=== PATIENT | female | born 1940 | race Caucasian/White ===

== ENCOUNTER → 2020-06-30 09:11 | Outpatient (BNVA) | payer MEDICARE, SELFPAY | PROVIDERS: PCP Internal Medicine; Referring Provider Internal Medicine; Visit Provider Nurse Practitioner | DX: K63.89 Other specified diseases of intestine (principal); K21.9 Gastro-esophageal reflux disease without esophagitis; Z86.19 Personal history of other infectious and parasitic diseases | CPT/HCPCS: 99212 ==

== ENCOUNTER → 2020-07-22 09:36 | Outpatient (BNVA) | payer MEDICARE, SELFPAY | PROVIDERS: PCP Internal Medicine; Referring Provider Internal Medicine; Visit Provider Nurse Practitioner | DX: K21.9 Gastro-esophageal reflux disease without esophagitis (principal); K63.89 Other specified diseases of intestine; Z86.19 Personal history of other infectious and parasitic diseases; Z87.891 Personal history of nicotine dependence | CPT/HCPCS: Q3014 ==

== ENCOUNTER 2020-08-02 07:55 | Outpatient (REF) | payer MEDICARE, SELFPAY ==
[2020-08-02 10:50] LABS: Alanine Aminotransferase 17 U/L (0-31); Albumin Level 3.8 g/dL (3.5-5.0); Alkaline Phosphatase 89 U/L (39-117); Anion Gap 13 (12-20); Aspartate Amino Transferase 21 U/L (5-31); Bilirubin Total 0.9 mg/dL (0.0-1.0); Blood Urea Nitrogen 17 mg/dL (9-16); Calcium 8.1 mg/dL (8.4-10.2); Carbon Dioxide 25 mmol/L (22-29); Chloride 106 mmol/L (96-108); Cholesterol 180 mg/dL; Estimated Glomerular Filt Rate > 60; Glucose Fasting 96 mg/dL (60-99); HDL Cholesterol 51 mg/dL; LDL Cholesterol Calculated 104 mg/dl; Potassium 4.5 mmol/l (3.3-5.1); Sodium 139 mmol/L (135-145); Total Protein 6.9 g/dL (6.5-8.0); Triglycerides 129 mg/dL
[2020-08-02 11:10] LABS: Vitamin D 25-OH Total 22.1 ng/mL (>30)
[2020-08-02 11:27] LABS: Folate 14.1 ng/mL (> or = 4.0); Vitamin B12 399 pg/mL (200-900)
== END 2020-08-02 07:56 | disposition home or self-care (01) ==
LOC: HO.10HDL 07:55
PROVIDERS: Visit Provider Internal Medicine
DX: E78.00 Pure hypercholesterolemia, unspecified (principal); E53.8 Deficiency of other specified B group vitamins; E55.9 Vitamin D deficiency, unspecified
CPT/HCPCS: 80053; 80061; 82306; 82607; 82746

== ENCOUNTER 2020-08-09 09:09 | Outpatient (REF) | payer MEDICARE, SELFPAY | END 2020-08-09 09:10 | disposition home or self-care (01) | LOC: HO.LAB 09:09 | PROVIDERS: PCP Internal Medicine; Visit Provider Internal Medicine | DX: Z20.828 Contact with and (suspected) exposure to other viral communicable diseases (principal); I45.10 Unspecified right bundle-branch block; I10 Essential (primary) hypertension | CPT/HCPCS: 99212; U0003 ==

== ENCOUNTER 2020-08-20 08:42 | Outpatient (REF) | payer MEDICARE, SELFPAY ==
--- NOTE | 2020-08-20 08:46 | MM_ITS ---
EXAMINATION: MM SCREENING DIGITAL BREAST TOMOSYNTHESIS, BILATERAL CLINICAL INFORMATION: Screening. Asymptomatic. The lifetime risk of breast cancer based on the Tyrer-Cuzick Model is 2%. COMPARISON: Mammography: 01/05/2020, 08/12/2019, 08/08/2018 TECHNIQUE: Digital breast tomosynthesis is performed in both the craniocaudal and mediolateral oblique views along with computer-aided detection (CAD). Synthesized 2D images are generated from the tomosynthesis. FINDINGS: There are scattered areas of fibroglandular density (ACR BI-RADS breast composition Category b). There are no significant masses, abnormal calcifications, or other abnormalities. Parenchymal pattern is similar to prior studies. Skin contours are smooth. MM/MM tomosynthesis screening BI IMPRESSION: No mammographic evidence of malignancy. ASSESSMENT: BI-RADS 1: Negative RECOMMENDATION: Routine annual mammography screening. This patient's information was entered into a reminder system with a target due date for their next mammogram.
== END 2020-08-20 08:43 | disposition home or self-care (01) ==
LOC: HO.MAMMO 08:42
PROVIDERS: PCP Internal Medicine; Visit Provider Internal Medicine
DX: Z12.31 Encounter for screening mammogram for malignant neoplasm of breast (principal)
CPT/HCPCS: 77063; 77067

== ENCOUNTER → 2020-08-23 10:53 | Outpatient (BNVA) | payer MEDICARE, SELFPAY | PROVIDERS: PCP Internal Medicine; Visit Provider Nurse Practitioner | DX: Z13.89 Encounter for screening for other disorder (principal) | CPT/HCPCS: Q3014 ==

== ENCOUNTER 2020-09-06 10:53 | Outpatient (REF) | payer MEDICARE, SELFPAY | END 2020-09-06 10:54 | disposition home or self-care (01) | LOC: HO.LAB 10:53 | PROVIDERS: Visit Provider Internal Medicine | DX: Z20.822 Contact with and (suspected) exposure to COVID-19 (principal) | CPT/HCPCS: 36415; C9803; U0003 ==

== ENCOUNTER → 2020-10-04 08:38 | Outpatient (BNVA) | payer MEDICARE, SELFPAY | PROVIDERS: PCP Internal Medicine; Visit Provider Nurse Practitioner | DX: Z13.89 Encounter for screening for other disorder (principal) | CPT/HCPCS: Q3014 ==

== ENCOUNTER → 2020-12-09 09:00 | Outpatient (BNVA) | payer MEDICARE, SELFPAY | PROVIDERS: PCP Internal Medicine; Visit Provider Internal Medicine Cardiovascular Disease | DX: I45.10 Unspecified right bundle-branch block (principal); I10 Essential (primary) hypertension; R60.0 Localized edema; R06.00 Dyspnea, unspecified | CPT/HCPCS: 93005; 99212 ==

== ENCOUNTER → 2020-12-28 09:42 | Outpatient (REF) | payer MEDICARE, SELFPAY | LOC: HO.CARD 09:42 | PROVIDERS: Visit Provider Internal Medicine Cardiovascular Disease | DX: Z13.89 Encounter for screening for other disorder (principal) ==

== ENCOUNTER → 2021-01-06 07:34 | Outpatient (REF) | payer MEDICARE, SELFPAY ==
--- NOTE | ~2021-01-06 | NM_ITS ---
EXERCISE MYOCARDIAL PERFUSION STUDY INDICATION: Shortness of breath, weight gain, assess for coronary disease and ischemia TECHNIQUE: The patient was brought in for an exercise perfusion study on 01/06/2021. Patient performed exercise as per Alex protocol and was injected 30 mCi of sestamibi once target heart rate was achieved. Images were obtained using the SPECT gamma camera interlaced with the gating device. Images were obtained in supine position. Resting perfusion study was performed on 01/17/2021. Patient was administered 30 mCi of sestamibi intravenously at rest. Images were then obtained in supine position. Total DLP 103mGy-cm. Images were processed with the software and compared side to side in short axis, horizontal long axis and vertical long axis views. FINDINGS: Raw images were reviewed. The stress perfusion study showed diminished tracer uptake along the mid to distal anteroseptal wall and basal inferior wall. With CT attenuation correction, there is improvement in both areas and hence could be from soft tissue attenuation artifact with diaphragmatic artifact. The gated study shows normal LV systolic function with calculated LVEF of 66%. LV cavity is normal in size. The gated study shows diminished wall thickening and contractility in the anteroseptal wall. Resting study shows no significant perfusion abnormality. Gating at rest reveals normal wall motion with ejection fraction at 61%. The findings are consistent with reversible mid to distal anteroseptal and basal inferior defects; moderate intensity; there is improvement with CT attenuation correction; reduced contractility during gating; could be either artifactual or ischemia. NM/NM cardiolite stress test IMPRESSION: 1. Myocardial perfusion imaging study shows reversible mid to distal anteroseptal and basal inferior defect but with improvement on CT attenuation correction. However, there is also reduced regional thickening during gating; hence could be artifactual or from ischemia. 2. Gated LVEF is 66% during stress and 61% during rest. 3. Transient ischemic dilatation not present. EKG component of the test reported separately.
--- NOTE | 2021-01-06 07:38 | CA_ITS ---
Acquisition Time: 2021-01-06 08:19:40 Total Exercise Time: 00:07:08 Test Indications: Dyspnea Medications: ASA ATORVASTATIN OMEPRAZOLE CREON Protocol: ALEX Max HR: 116 BPM 84% of Pred: 138 BPM Max BP: 164/070 mmHG Max Work Load: 5.7 METS Eercise wstress test using Modified Alex protocol, total of 7 min 8 sec. METS 5.70, TAPHR up to 84 %. Tolerated well, denies any anginal sx. EKG without any arrhythmias Mild ST depressions in lead 2, Nuclear images to follow. Normotensive response to exercise. Test reviewed with Shaina Vyas. Referred By: Ismael Leija Overread By: Pao Travis NP
== END ==
LOC: HO.CARD 07:34
PROVIDERS: Visit Provider Internal Medicine Cardiovascular Disease
DX: R06.00 Dyspnea, unspecified (principal)
CPT/HCPCS: 78452; 93016; 93017; 93018; A9500

== ENCOUNTER → 2021-01-20 10:55 | Outpatient (BNVA) | payer MEDICARE, SELFPAY | PROVIDERS: PCP Internal Medicine; Referring Provider Internal Medicine; Visit Provider Internal Medicine Cardiovascular Disease | DX: R94.39 Abnormal result of other cardiovascular function study (principal); R06.00 Dyspnea, unspecified; I45.10 Unspecified right bundle-branch block; Z79.82 Long term (current) use of aspirin; Z79.899 Other long term (current) drug therapy; Z87.891 Personal history of nicotine dependence | CPT/HCPCS: 99212 ==

== ENCOUNTER 2021-02-10 07:35 | Outpatient (REF) | payer MEDICARE, SELFPAY ==
[2021-02-10 08:28] LABS: Hematocrit 40.2 % (37-47); Hemoglobin 13.1 g/dl (12.0-16.0); Mean Corpuscular HGB Conc 32.6 g/dl (31.0-35.0); Mean Platelet Volume 9.7 fL (9.4-12.3); Platelet Count 211 X10*3/uL (160-400); Red Blood Count 4.23 X10*6/uL (4.20-5.50); White Blood Count 6.6 X10*3/uL (4.8-10.8)
[2021-02-10 08:36] LABS: Prothrombin Time 11.5 SEC (10.8-13.0)
[2021-02-10 08:55] LABS: Alanine Aminotransferase 9 U/L (0-31); Alkaline Phosphatase 95 U/L (39-117); Anion Gap 9 (12-20); Aspartate Amino Transferase 17 U/L (5-31); Bilirubin Total 0.9 mg/dL (0.0-1.0); Blood Urea Nitrogen 15 mg/dL (9-16); Calcium 9.1 mg/dL (8.4-10.2); Carbon Dioxide 29 mmol/L (22-29); Chloride 103 mmol/L (96-108); Cholesterol 159 mg/dL; Estimated Glomerular Filt Rate 58; Glucose Fasting 95 mg/dL (60-99); HDL Cholesterol 56 mg/dL; LDL Cholesterol Calculated 87 mg/dl; Potassium 4.2 mmol/L (3.3-5.1); Sodium 137 mmol/L (135-145); Triglycerides 81 mg/dL
[2021-02-10 09:32] LABS: Folate 14.8 ng/mL (> or = 4.0); Vitamin B12 320 pg/mL (200-900)
[2021-02-14 15:07] LABS: Vitamin D 25-OH, D2 <4 ng/mL; Vitamin D 25-OH, D3 44 ng/mL; Vitamin D 25-OH, Total 44 ng/mL (30-100)
== END 2021-02-10 07:36 | disposition home or self-care (01) ==
LOC: HO.LAB 07:35
PROVIDERS: Absent Provider Internal Medicine; PCP Internal Medicine; Visit Provider Internal Medicine Cardiovascular Disease
DX: R94.39 Abnormal result of other cardiovascular function study (principal); E78.00 Pure hypercholesterolemia, unspecified; E78.5 Hyperlipidemia, unspecified; E53.8 Deficiency of other specified B group vitamins; E55.9 Vitamin D deficiency, unspecified
CPT/HCPCS: 36415; 80048; 80053; 80061; 82306; 82607; 82746; 85027; 85610

== ENCOUNTER → 2021-03-10 13:30 | Outpatient (BNVA) | payer MEDICARE, SELFPAY | PROVIDERS: PCP Internal Medicine; Referring Provider Internal Medicine; Visit Provider Nurse Practitioner Family | DX: R06.00 Dyspnea, unspecified (principal); I10 Essential (primary) hypertension; E78.5 Hyperlipidemia, unspecified; E78.00 Pure hypercholesterolemia, unspecified; I45.10 Unspecified right bundle-branch block; R94.39 Abnormal result of other cardiovascular function study; E66.9 Obesity, unspecified; Z87.891 Personal history of nicotine dependence; Z98.890 Other specified postprocedural states | CPT/HCPCS: 99212 ==

== ENCOUNTER 2021-03-15 07:50 | Outpatient (REF) | payer MEDICARE, SELFPAY ==
--- NOTE | 2021-03-15 16:51 | PFT_ITS ---
FLOWS: FEV1 126% of predicted at 2.33 L. FVC 121% of predicted at 3.02 L. FEV1 to FVC ratio of 0.77. No bronchodilator response except in small to medium airways. LUNG VOLUMES: Total lung capacity 98% of predicted at 4.95 L. Residual volume 78% of predicted at 1.93 L. Slow vital capacity 116% of predicted at 3.03 L. Expiratory reserve volume 65% of predicted at 0.31 L. Diffusion capacity is mildly decreased. IMPRESSION: No obstructive or restrictive ventilatory defect. No bronchodilator response except in small to medium airways. Decreased diffusion capacity suggests emphysema. ALLERGIES: PHYSICAL EXAMINATION: MD DIMPLE Mobley/MODL / [id number]
== END 2021-03-15 07:51 | disposition home or self-care (01) ==
LOC: HO.RESP 07:50
PROVIDERS: PCP Internal Medicine; Visit Provider Nurse Practitioner Family
DX: R06.00 Dyspnea, unspecified (principal)
CPT/HCPCS: 94060; 94727; 94729

== ENCOUNTER → 2021-03-24 12:32 | Outpatient (BNVA) | payer MEDICARE, SELFPAY | PROVIDERS: PCP Internal Medicine; Visit Provider Nurse Practitioner Family | DX: R06.00 Dyspnea, unspecified (principal); R94.39 Abnormal result of other cardiovascular function study; Z98.890 Other specified postprocedural states; Z87.891 Personal history of nicotine dependence; Z79.899 Other long term (current) drug therapy | CPT/HCPCS: Q3014 ==

== ENCOUNTER → 2021-04-19 13:51 | Outpatient (BNVA) | payer MEDICARE, SELFPAY | PROVIDERS: PCP Internal Medicine; Visit Provider Nurse Practitioner | CPT/HCPCS: Q3014 ==

== ENCOUNTER → 2021-06-03 15:34 | Outpatient (BNVA) | payer MEDICARE, SELFPAY | PROVIDERS: Visit Provider Nurse Practitioner | CPT/HCPCS: Q3014 ==

== ENCOUNTER 2021-09-06 08:30 | Outpatient (REF) | payer MEDICARE, SELFPAY ==
--- NOTE | ~2021-09-06 | MM_ITS ---
EXAMINATION: MM SCREENING DIGITAL BREAST TOMOSYNTHESIS, BILATERAL CLINICAL INFORMATION: Screening. Asymptomatic. The lifetime risk of breast cancer based on the Tyrer-Cuzick Model is 1%. COMPARISON: Mammography: 08/20/2020, 01/05/2020, 08/12/2019, 08/08/2018 TECHNIQUE: Digital breast tomosynthesis is performed in both the craniocaudal and mediolateral oblique views along with computer-aided detection (CAD). Synthesized 2D images are generated from the tomosynthesis. FINDINGS: There are scattered areas of fibroglandular density (ACR BI-RADS breast composition Category b). There are no significant masses, abnormal calcifications, or other abnormalities. MM/MM tomosynthesis screening BI IMPRESSION: No mammographic evidence of malignancy. ASSESSMENT: BI-RADS 1: Negative RECOMMENDATION: Routine annual mammography screening. This patient's information was entered into a reminder system with a target due date for their next mammogram.
== END 2021-09-06 08:31 | disposition home or self-care (01) ==
LOC: HO.MAMMO 08:30
PROVIDERS: PCP Internal Medicine; Visit Provider Internal Medicine
DX: Z12.31 Encounter for screening mammogram for malignant neoplasm of breast (principal)
CPT/HCPCS: 77063; 77067

== ENCOUNTER → 2021-12-29 07:08 | Outpatient (BNVA) | payer MEDICARE, SELFPAY | PROVIDERS: PCP Internal Medicine; Referring Provider Internal Medicine; Visit Provider Nurse Practitioner | DX: K21.9 Gastro-esophageal reflux disease without esophagitis (principal); R14.0 Abdominal distension (gaseous) | CPT/HCPCS: 99212 ==

== ENCOUNTER 2022-01-12 05:45 | Emergency (ER) | payer MEDICARE, SELFPAY ==
[2022-01-12 05:52] VITALS: BP 183/87; PULSE 64; RESP 18; TEMP 36.8; O2SAT 97; BMI 40.3
[2022-01-12 06:04] LABS: Hematocrit 39.5 % (37.0-47.0); Hemoglobin 13.2 g/dl (12.0-16.0); Mean Corpuscular HGB Conc 33.4 g/dl (31.0-35.0); Mean Corpuscular Hemoglobin 30.8 pg (27.0-33.0); Mean Corpuscular Volume 92.1 fL (80.0-98.0); Platelet Count 219 X10*3/uL (160-400); Red Blood Count 4.29 X10*6/uL (4.20-5.50); Red Cell Distribution Width 12.3 % (11.0-16.0); White Blood Count 7.4 X10*3/uL (4.8-10.8)
[2022-01-12 06:23] LABS: Alanine Aminotransferase 13 U/L (0-31); Albumin Level 3.8 g/dL (3.5-5.0); Alkaline Phosphatase 76 U/L (39-117); Anion Gap 13 (12-20); Aspartate Amino Transferase 20 U/L (5-31); Blood Urea Nitrogen 9 mg/dL (9-16); Calcium 9.1 mg/dL (8.4-10.2); Carbon Dioxide 24 mmol/L (22-29); Chloride 105 mmol/L (96-108); Creatinine Clr Calc Pharmacy 54.6; Estimated Glomerular Filt Rate 58; Glucose Random 113 mg/dL (60-115); Potassium 4.1 mmol/L (3.3-5.1); Sodium 138 mmol/L (135-145)
[2022-01-12 06:54] LABS: Appearance Urine CLEAR; Color Urine YELLOW; Glucose Urine UA NEG (NEG); Leukocyte Esterase Urine 1+ (NEG); Nitrite Urine NEG (NEG); Specific Gravity - Urine 1.015 (1.005-1.025); UACC Culture Trigger YES; Urine Blood TRACE (NEG); Urine Ketones NEG (NEG); Urine Protein NEG (NEG-TRACE)
[2022-01-12 07:07] LABS: Bacteria Urine TRACE /LPF; RBC Urine 0-2 /HPF (0); Renal Epithelial Cells Urine TRACE /LPF; Squamous Epithelial Cell Urine TRACE /LPF; UACC CULT YES
--- NOTE | 2022-01-12 07:12 | ED_ITS ---
HPI - General Adult General Chief complaint: Abdominal Pain Stated complaint: R side pain Time Seen by Provider: 01/12/22 07:12 Source: patient Mode of arrival: ambulatory Limitations: no limitations History of Present Illness HPI narrative: 81 years old female came in for presentation of right upper quadrant pain. Pain started about 7 days ago described as constant, moderate 5/10, feels like deep dull aching pain, respiration/food has no effect on the pain, no aggravating factor, no relieving factor. No fever, no chills, never had similar pain in the past. Patient was seen and evaluated at walk-in urgent care yesterday was told a pulled muscle. No history of abdominal surgery. No history of diabetes or being immunocompromised. Patient had a history of shingle infection in the past. Related Data Previous Rx's Medication Instructions Recorded blood pressure test kit-large #1 ea 08/09/20 fluticasone propionate 50 1 spray INTRANASAL DAILY #16 cap 11/01/20 mcg/actuation nasal spray,suspension aspirin 81 mg tablet,delayed 81 mg PO DAILY #90 tab 03/12/21 release atorvastatin 10 mg tablet 10 mg PO DAILY #90 tab 03/15/21 cholecalciferol (vitamin D3) 50 50 mcg PO DAILY #90 cap 06/26/21 mcg (2,000 unit) capsule furosemide 20 mg tablet (Lasix) 20 mg PO Q OTHER DAY #30 tab 08/07/21 omeprazole 20 mg capsule,delayed 20 mg PO BID 90 Days #180 cap 12/29/21 release ibuprofen 400 mg tablet 400 mg PO Q8H PRN #30 tab 01/12/22 prednisone 20 mg tablet 20 mg PO BID #10 tab 01/12/22 Allergies Allergy/AdvReac Type Severity Reaction Status Date / Time seasonal Allergy Intermediate Itchy Eyes Uncoded 12/29/21 07:16 Review of Systems 2 Review of Systems: All other systems are reviewed and are negative Constitutional: Reports as per HPI and Reports no additional constitutional complaints Eyes: Reports as per HPI and Reports no additional eye complaints Reports system reviewed and no additional complaints, except as documented Cardiovascular: Reports as per HPI and Reports no additional cardiovascular complaints Respiratory: Reports as per HPI and Reports no additional respiratory complaints Gastrointestinal: Reports as per HPI and Reports no additional gastrointestinal complaints Genitourinary: Reports no additional female genitourinary complaints Musculoskeletal: Reports no additional musculoskeletal complaints Skin/Breast: Reports system reviewed and no additional complaints, except as docu Psychiatric: Reports no additional psychiatric complaints Endocrine: Reports no additional endocrine complaints Hematologic/Lymphatic: Reports no additional hematologic/lymphatic complaints Allergic/Immunologic: Reports no additional allergic/immunologic complaints Reports system reviewed and no additional complaints, except as documented and Reports Abnormal speech present [facility], [facility] Past Medical History Medical History B12 deficiency Candidal intertrigo Constipation by delayed colonic transit History of smoking Hypovitaminosis D Obesity Pure hypercholesterolemia Voice hoarseness Surgical History Hx of cataract surgery Hx of colonoscopy Hx of tonsillectomy Hx of tubal ligation Family History Family History Father Lung cancer Mother Cardiovascular disease Sister Lymph node cancer Brother Colon cancer Brother Pacemaker Maternal Aunt Breast cancer Social History Social History Household Members: None Housing: Apartment Alcohol intake: current Alcohol intake frequency: holidays/special occasions only Alcohol type: other Patient Tobacco Use Status: Former Tobacco user Tobacco use type: Cigarette e-Cigarette/Vaping Use: Never Used Second Hand Smoke Exposure: No Advance Directives: No Advance Directives Information Provided: Yes service: No Current occupational status: retired Physical Exam ED Vital Signs: Vital Signs - 24 hr 01/12/22 05:52 Temperature 98.2 F Pulse Rate 64 Respiratory Rate 18 Blood Pressure 183/87 H Pulse Oximetry 97 BMI result Body Mass Index 40.3 Vital signs have been reviewed as appeared to be correct. Blood pressure elevated. Heart rate normal. Respiration rate normal. Temperature normal. Oxygen saturation normal. Appearance: Alert. Oriented X3. No acute distress. Head: Normal external exam. Normocephalic. Atraumatic. No Gagnon signs noted. No raccoon eyes noted Eyes: PERRLA. EOMI. Conjunctiva and sclera normal. Eyelids normal. ENT: TM's Normal. Pharynx normal. Uvula midline. Moist mucous membranes. No trismus noted. No drooling noted. No muffled voice noted. Neck: Normal inspection. Neck supple. FROM. No adenopathy. Thyroid Normal. No meningeal signs. No neck mass noted. CVS: Normal heart rate and rhythm. Heart sound normal. No murmurs noted. Pulses normal throughout. Respiratory: No respiratory distress. Painless inspiration. Breath sounds normal. No wheezes/rales/rhonchi noted. Chest nontender. No accessory muscle usage noted or decreased air movement noted. Abdomen: Soft and nontender. Bowel sounds normal in all 4 quadrants. No distention noted. No organomegaly noted. No visible injury noted. Back: No CVA tenderness. Full range of motion noted. Skin: Crusted maculopapular eruption extending from midline right upper quadrant area anteriorly creeping under the breast toward the back do not cross the midline posteriorly, no vesicular lesion. Extremities: No lower extremity edema. Extremities exhibit normal range of motion. Extremities nontender. Neuro: Oriented X 3. Cranial nerve exam: II-XII are grossly intact No motor deficit. No sensory deficit. Reflexes normal. Course Course Course Narrative: Assessment and plan. 81-year-old female right side body ache secondary to varicella-zoster virus infection symptoms started greater than 72 hours ago patient likely will not terry efit from antiviral medication but may benefit from short course of prednisone to prevent post herpetic neuralgia and NSAIDs to control pain for now, patient also was instructed to prevent spreading the disease. Medical Decision Making Lab Data Lab results reviewed: Yes I reviewed the patient's lab results. Result diagrams: 01/12/22 05:57 01/12/22 05:57 Labs: Lab Results 01/12/22 01/12/22 01/12/22 Range/Units 05:57 05:57 06:47 WBC 7.4 (4.8-10.8) X10*3/uL RBC 4.29 (4.20-5.50) X10*6/uL Hgb 13.2 (12.0-16.0) g/dl Hct 39.5 (37.0-47.0) % MCV 92.1 (80.0-98.0) fL MCH 30.8 (27.0-33.0) pg MCHC 33.4 (31.0-35.0) g/dl RDW 12.3 (11.0-16.0) % Plt Count 219 (160-400) X10*3/uL MPV 9.0 L (9.4-12.3) fL Absolute Nucleated RBC 0.000 (0.0-0.012) X10*3/uL Nucleated RBC % (auto) 0.0 (0.0-0.2) /100WBC Sodium 138 (135-145) mmol/L Potassium 4.1 (3.3-5.1) mmol/L Chloride 105 (96-108) mmol/L Carbon Dioxide 24 (22-29) mmol/L Anion Gap 13 (12-20) BUN 9 (9-16) mg/dL Creatinine 0.93 (0.5-1.4) mg/dL Estim Creat Clear Calc 54.6 Estimated GFR 58 Random Glucose 113 (60-115) mg/dL Calcium 9.1 (8.4-10.2) mg/dL Total Bilirubin 1.0 (0.0-1.0) mg/dL AST 20 (5-31) U/L ALT 13 (0-31) U/L Alkaline Phosphatase 76 (39-117) U/L Total Protein 7.0 (6.5-8.0) g/dL Albumin 3.8 (3.5-5.0) g/dL Urine Color YELLOW Urine Appearance CLEAR Urine pH 7.0 (5.0-8.0) Ur Specific [place] 1.015 (1.005-1.025) Urine Protein NEG (NEG-TRACE) MG/DL Urine Glucose (UA) NEG (NEG) MG/DL Urine Ketones NEG (NEG) MG/DL Urine Blood TRACE (NEG) Urine Nitrite NEG (NEG) Ur Leukocyte Esterase 1+ H (NEG) Urine RBC 0-2 (0) /HPF Urine WBC 1-4 (0-4) /HPF Ur Squamous Epith Cells TRACE /LPF Ur Renal Epithelial Cell TRACE /LPF Urine Bacteria TRACE /LPF Discharge Plan Discharge Clinical Impression: Herpes zoster dermatitis Patient Disposition: Home, Self-Care Instructions: Shingles (ED) Prescriptions: New prednisone 20 mg tablet 20 mg PO BID Qty: 10 0RF ibuprofen 400 mg tablet 400 mg PO Q8H PRN (Reason: pain) Qty: 30 0RF No Action fluticasone propionate 50 mcg/actuation spray,suspension 1 spray intranasal DAILY Qty: 16 6RF aspirin 81 mg tablet,delayed release (DR/EC) 81 mg PO DAILY Qty: 90 3RF atorvastatin 10 mg tablet 10 mg PO DAILY Qty: 90 3RF cholecalciferol (vitamin D3) 50 mcg (2,000 unit) capsule 50 mcg PO DAILY Qty: 90 3RF furosemide [Lasix] 20 mg tablet 20 mg PO Q OTHER DAY Qty: 30 3RF (DME) blood pressure test kit-large Kit See Rx Instructions .ROUTE .MEDSUPPLY Qty: 1 0RF Rx Instructions: As directed omeprazole 20 mg capsule,delayed release(DR/EC) 20 mg PO BID 90 Days Qty: 180 1RF Referrals: Niyah Vale MD [Primary Care Provider] -
[2022-01-12 07:45] VITALS: BP 174/71; PULSE 59; RESP 16; O2SAT 93
[2022-01-12 08:22] VITALS: BP 176/73
== END 2022-01-12 08:25 | disposition home or self-care (01) ==
PROVIDERS: Emergency Provider Emergency Medicine; PCP Internal Medicine
DX: B02.8 Zoster with other complications (principal)
CPT/HCPCS: 36415; 80053; 81001; 85027; 87086; 99283

== ENCOUNTER → 2022-04-10 09:47 | Outpatient (BNVA) | payer MEDICARE, SELFPAY | PROVIDERS: PCP Internal Medicine; Visit Provider Internal Medicine | DX: B02.29 Other postherpetic nervous system involvement (principal) | CPT/HCPCS: 99202 ==

== ENCOUNTER → 2022-05-15 10:35 | Outpatient (BNVA) | payer MEDICARE, SELFPAY | PROVIDERS: PCP Internal Medicine; Visit Provider Internal Medicine | DX: B02.29 Other postherpetic nervous system involvement (principal) | CPT/HCPCS: 99212; J7336 ==

== ENCOUNTER 2022-06-29 08:36 | Outpatient (REF) | payer MEDICARE, SELFPAY ==
[2022-06-29 11:12] LABS: Alanine Aminotransferase 15 U/L (0-31); Albumin Level 4.1 g/dL (3.5-5.0); Alkaline Phosphatase 77 U/L (39-117); Anion Gap 15 (12-20); Aspartate Amino Transferase 19 U/L (5-31); Bilirubin Total 0.9 mg/dL (0.0-1.0); Blood Urea Nitrogen 22 mg/dL (9-16); Calcium 9.2 mg/dL (8.4-10.2); Carbon Dioxide 27 mmol/L (22-29); Chloride 104 mmol/L (96-108); Cholesterol 170 mg/dL; Estimated Glomerular Filt Rate 52; Glucose Fasting 87 mg/dL (60-99); HDL Cholesterol 48 mg/dL; LDL Cholesterol Calculated 93 mg/dl; Potassium 4.5 mmol/L (3.3-5.1); Sodium 141 mmol/L (135-145); Total Protein 7.2 g/dL (6.5-8.0); Triglycerides 149 mg/dL
[2022-06-29 11:33] LABS: Vitamin D 25-OH Total 42.3 ng/mL (>30)
== END 2022-06-29 08:37 | disposition home or self-care (01) ==
LOC: HO.10HDL 08:36
PROVIDERS: Visit Provider Internal Medicine
DX: B02.29 Other postherpetic nervous system involvement (principal); B37.9 Candidiasis, unspecified; E78.5 Hyperlipidemia, unspecified; E55.9 Vitamin D deficiency, unspecified; I10 Essential (primary) hypertension
CPT/HCPCS: 36415; 80053; 80061; 82306; 99212

== ENCOUNTER → 2022-07-25 07:56 | Outpatient (BNVA) | payer MEDICARE, SELFPAY | PROVIDERS: PCP Internal Medicine; Referring Provider Internal Medicine; Visit Provider Nurse Practitioner | DX: B02.29 Other postherpetic nervous system involvement (principal); B37.9 Candidiasis, unspecified; K21.9 Gastro-esophageal reflux disease without esophagitis | CPT/HCPCS: 99212 ==

== ENCOUNTER → 2022-08-17 08:12 | Outpatient (BNVA) | payer MEDICARE, SELFPAY | PROVIDERS: PCP Internal Medicine; Visit Provider Nurse Practitioner | DX: B02.29 Other postherpetic nervous system involvement (principal); B37.9 Candidiasis, unspecified; K21.9 Gastro-esophageal reflux disease without esophagitis; R14.0 Abdominal distension (gaseous); Z79.899 Other long term (current) drug therapy | CPT/HCPCS: 99212 ==

== ENCOUNTER 2022-09-11 07:53 | Outpatient (REF) | payer MEDICARE, SELFPAY ==
--- NOTE | ~2022-09-11 | MM_ITS ---
EXAMINATION: MM SCREENING DIGITAL BREAST TOMOSYNTHESIS, BILATERAL CLINICAL INFORMATION: Screening. Asymptomatic. The lifetime risk of breast cancer based on the Tyrer-Cuzick Model is 1%. COMPARISON: Mammography: 09/06/2021, 03/20/2020, 01/05/2020, 08/12/2019 TECHNIQUE: Digital breast tomosynthesis is performed in both the craniocaudal and mediolateral oblique views along with computer-aided detection (CAD). Synthesized 2D images are generated from the tomosynthesis. FINDINGS: There are scattered areas of fibroglandular density (ACR BI-RADS breast composition Category b). There are no significant masses, abnormal calcifications, or other abnormalities. Parenchymal pattern is similar to prior studies. There is no developing density or architectural abnormality. The axilla and skin contours are unremarkable. No significant changes. MM/MM tomosynthesis screening BI IMPRESSION: No mammographic evidence of malignancy. ASSESSMENT: BI-RADS 1: Negative RECOMMENDATION: Routine annual mammography screening. This patient's information was entered into a reminder system with a target due date for their next mammogram.
== END 2022-09-11 07:54 | disposition home or self-care (01) ==
LOC: HO.MAMMO 07:53
PROVIDERS: PCP Internal Medicine; Visit Provider Internal Medicine
DX: Z12.31 Encounter for screening mammogram for malignant neoplasm of breast (principal)
CPT/HCPCS: 77063; 77067

== ENCOUNTER → 2022-10-10 10:12 | Outpatient (BNVA) | payer MEDICARE, SELFPAY | PROVIDERS: PCP Internal Medicine; Visit Provider Nurse Practitioner | DX: K21.9 Gastro-esophageal reflux disease without esophagitis (principal); B37.9 Candidiasis, unspecified | CPT/HCPCS: 99212 ==

== ENCOUNTER 2023-02-26 09:08 | Outpatient (REF) | payer MEDICARE, SELFPAY ==
--- NOTE | ~2023-02-26 | XR_ITS ---
EXAMINATION: XR HAND, RIGHT XR KNEE, LEFT CLINICAL INFORMATION: Pain within the knuckles of the right hand, left knee pain. TECHNIQUE: 2 views of the left knee and 3 views of the right hand. FINDINGS: LEFT KNEE: Joint effusion. Mild medial joint space narrowing. Minimal posterior patellar and medial marginal osteophytes. Mild quadriceps enthesopathy. RIGHT HAND: Radiopaque marker placed by technologist to indicate area of concern indicated by the patient adjacent to the 5th metacarpal shaft. Bones are diffusely demineralized. Moderate degenerative changes 1st carpometacarpal joint with joint space narrowing and hypertrophic change. Moderate degenerative changes with joint space narrowing and hypertrophic change in scattered interphalangeal joints, most notable in the 2nd and 3rd DIP joints and in the 1st IP joint. XR/XR knee LT 2V IMPRESSION: 1. Left knee joint effusion. Mild degenerative changes. 2. Moderate degenerative changes right hand. No displaced fracture. Recommend followup imaging in 10-14 days if fracture is suspected.
--- NOTE | ~2023-02-26 | XR_ITS ---
EXAMINATION: XR HAND, RIGHT XR KNEE, LEFT CLINICAL INFORMATION: Pain within the knuckles of the right hand, left knee pain. TECHNIQUE: 2 views of the left knee and 3 views of the right hand. FINDINGS: LEFT KNEE: Joint effusion. Mild medial joint space narrowing. Minimal posterior patellar and medial marginal osteophytes. Mild quadriceps enthesopathy. RIGHT HAND: Radiopaque marker placed by technologist to indicate area of concern indicated by the patient adjacent to the 5th metacarpal shaft. Bones are diffusely demineralized. Moderate degenerative changes 1st carpometacarpal joint with joint space narrowing and hypertrophic change. Moderate degenerative changes with joint space narrowing and hypertrophic change in scattered interphalangeal joints, most notable in the 2nd and 3rd DIP joints and in the 1st IP joint. XR/XR hand RT 2V IMPRESSION: 1. Left knee joint effusion. Mild degenerative changes. 2. Moderate degenerative changes right hand. No displaced fracture. Recommend followup imaging in 10-14 days if fracture is suspected.
== END 2023-02-26 09:09 | disposition home or self-care (01) ==
LOC: HO.XRAY 09:08
PROVIDERS: PCP Internal Medicine; Visit Provider Internal Medicine
DX: M25.562 Pain in left knee (principal); M79.641 Pain in right hand
CPT/HCPCS: 73120; 73560

== ENCOUNTER 2023-03-05 07:35 | Outpatient (REF) | payer MEDICARE, SELFPAY | END 2023-03-05 07:36 | disposition home or self-care (01) | LOC: HO.10HDL 07:35 | PROVIDERS: Visit Provider Internal Medicine | DX: E53.8 Deficiency of other specified B group vitamins (principal); E55.9 Vitamin D deficiency, unspecified; I10 Essential (primary) hypertension; E78.5 Hyperlipidemia, unspecified | CPT/HCPCS: 36415; 80053; 80061; 82306; 82607; 82746 ==

== ENCOUNTER 2023-04-10 09:48 | Outpatient (AMB) | payer MEDICARE, SELFPAY ==
--- NOTE | 2023-04-10 09:53 | MHC.OFFVIS ---
Intake Vital Signs 04/10/23 09:54 Height 5 ft 2 in Weight 238 lb 15.697 oz BMI 43.7 BP 140/66 H Blood Pressure Location Rt brachial Position Sitting Pulse 49 L Intake Visit Reasons: 6 month follow up Intake Note: Cece presents in office as a est.patient for a 6 months follow up. PT CC: Patient reports she has been doing very good. Denies other GI concerns today. Occupational Therapist'S Assistant Required: No Accompanied by: Self / Same As Patient Allergies No Known Drug Allergies Adverse Reaction (Unknown, Verified 04/10/23 09:56) Unknown seasonal Allergy (Intermediate, Uncoded 02/20/23 11:04) Itchy Eyes HPI 6 month follow up HPI Details Assessment & Plan (1) GERD (gastroesophageal reflux disease): ?Code(s): K21.9 - Gastro-esophageal reflux disease without esophagitis ?Qualifiers: ?Esophagitis presence:?esophagitis presence not specified? Qualified Code(s):?K21.9 - Gastro-esophageal reflux disease without esophagitis ?Plan: Not taking venlafaxine, problem with jacqueline as insurance has qty limit on 300mg tablets - likely needs to increase the strength of the tabs. She has rashes in all warm, moist areas - now armpits itchy. Will re rx nystatin cream. Doing well on o2o bid. ROV 6 mos. (2) Gabriela albicans infection: ?Code(s): B37.9 - Candidiasis, unspecified ? ? ? Medications: New nystatin 1 appl? topical TI D 30 grams 3RF B37.9 - Candidiasi s, unspecified ? TODAY'S VISIT She continues to do well on the omeprazole bid. The nystatin really helped with the rash and she does not have it now but would like to have it on hand. She continues to struggle with post herpetic neuralgia and the gabapentin is not helping much. The gabapentin also has quite sedating so she skipping her daytime doses. She finds that pain limits her activity and this is causing wt gain. I recommend she revisit this with her PCP and perhaps they can consider other medications in the clinical pathway to address this such as carbamazepine, lamictal or SSNI tx. She has failed amitriptyline, lidocaine patches, and most other topical therapies given by Pain Management. ROV 6 mos. PFS Medical History B12 deficiency Candidal intertrigo Constipation by delayed colonic transit History of Clostridioides difficile colitis History of smoking Hypovitaminosis D Obesity Post herpetic neuralgia Pure hypercholesterolemia Small intestinal bacterial overgrowth Voice hoarseness Surgical History Hx of cataract surgery Hx of colonoscopy Hx of tonsillectomy Hx of tubal ligation Family History Father Lung cancer Mother Cardiovascular disease Sister Lymph node cancer Brother Colon cancer Brother Pacemaker Maternal Aunt Breast cancer Social History Household Members: None Housing: Apartment Alcohol intake: current Alcohol intake frequency: holidays/special occasions only Alcohol type: other Patient Tobacco Use Status: Former Tobacco user Tobacco use type: Cigarette e-Cigarette/Vaping Use: Never Used Second Hand Smoke Exposure: No service: No Current occupational status: retired Cognitive needs: No Hearing needs: No Vision needs: Yes Review of Systems Const Denies fatigue, Denies fever(s), Denies night sweats, Denies poor appetite, Reports weight gain and Denies weight loss ENT Reports Normal hearing present, Denies dental pain, Denies dysphagia, Denies hearing loss, Denies mouth pain, Denies odynophagia, Denies throat swelling, Denies tongue swelling and Reports other (Dentition adequate) Card Reports no additional complaints Resp Reports no additional complaints GI Reports abdominal pain (Post herpetic neuralgia not GI origin), Denies melena, Denies bloating, Denies hematochezia, Denies constipation, Denies GI cramping, Denies dysphagia, Denies excessive flatus, Denies early satiety, Reports heartburn, Denies diarrhea, Denies nausea, Denies odynophagia, Denies vomiting and Denies hematemesis Musc Reports arthralgias (Left knee pain) Skin/Breast Denies pruritus, Denies lesions, Denies rash and Denies jaundice Neuro Reports Normal hearing present and Denies Abnormal speech present Endo Denies fatigue Aller/Immun Denies throat swelling and Denies tongue swelling Physical Exam Vital Signs: Last Vital Signs Pulse 49 L 04/10/23 09:54 BP 140/66 H 04/10/23 09:54 BMI result Body Mass Index 43.7 Const General: cooperative, no acute distress, well developed and well groomed Nutritional Appearance: well nourished and obese Orientation/consciousness: oriented to person, oriented to place and oriented to time Limitations: No language barrier HEENT Head: Yes normocephalic and Yes atraumatic Eyes General: appearance normal, both eyes and all related structures Pupils: Equal, round and reactive pupils present Neck Neck: Yes normal visual inspection and Yes no lymphadenopathy Thyroid: Thyroid normal Resp Effort & Inspection: normal respiratory effort and able to speak in complete sentences Auscultation: clear to auscultation bilaterally Cardio Rate: regular rate Rhythm: regular rhythm Heart sounds: Normal, physiologic split S2 sound present Peripheral pulses: radial pulses present and posterior tibial pulses present GI Inspection: No distended, Yes Abdominal panniculus present and Yes obesity Palpation (GI): Soft to palpation, nontender, no guarding, not rigid and No hepatosplenomegaly present Percussion: Yes normal to percussion Auscultation: normal bowel sounds Rectal Exam - Female: deferred Skin General skin exam: no rashes or lesions noted, turgor normal, skin not dry, no jaundice, No spider nevi and no striae Rashes: no rashes Nails: normal Neuro General: oriented to person, oriented to place and oriented to time Cranial nerves: Yes Equal, round and reactive pupils present and Yes Normal hearing present Speech: No Abnormal speech present Extrem General: Yes normal to inspection, No clubbing, No cyanosis and No edema Psych Appearance: grossly normal and well kempt Mental Status: mental status grossly normal Speech and movement: Normal speech and movement present Affect: normal affect Attitude: cooperative Thought process: Normal thought process present and not confabulating Thought content: Normal thought content present Insight: Fair insight present (Psych) Judgement: Fair judgement present (Psych) Assessment & Plan Assessment & Plan (1) GERD (gastroesophageal reflux disease): Code(s): K21.9 - Gastro-esophageal reflux disease without esophagitis Qualifiers: Esophagitis presence: esophagitis presence not specified Qualified Code(s): K21.9 - Gastro-esophageal reflux disease without esophagitis Plan: She continues to do well on the omeprazole bid. The nystatin really helped with the rash and she does not have it now but would like to have it on hand. She continues to struggle with post herpetic neuralgia and the gabapentin is not helping much. The gabapentin also has quite sedating so she skipping her daytime doses. She finds that pain limits her activity and this is causing wt gain. I recommend she revisit this with her PCP and perhaps they can consider other medications in the clinical pathway to address this such as carbamazepine, lamictal or SSNI tx. She has failed amitriptyline, lidocaine patches, and most other topical therapies given by Pain Management. ROV 6 mos. (2) Gabriela albicans infection: Code(s): B37.9 - Candidiasis, unspecified (3) Constipation by delayed colonic transit: Code(s): K59.01 - Slow transit constipation Plan: She has not needed any intervention for this recently. Medications: New nystatin 1 appl topical QID 30 grams 3RF B37.9 - Candidiasis, unspecified Refilled omeprazole 20 mg PO BID 90 days 180 caps 1RF K21.9 - Gastro-esophageal reflux disease without esophagitis Coding Level of Care Code Est Pt Level 3 (51558) Diagnoses GERD (gastroesophageal reflux disease) K21.9 Esophagitis presence: esophagitis presence not specified Gabriela albicans infection B37.9 Constipation by delayed colonic transit K59.01
[2023-04-10 09:54] VITALS: BP 140/66; PULSE 49; BMI 43.7
== END 2023-04-10 10:16 | disposition home or self-care (01) ==
PROVIDERS: Visit Provider Nurse Practitioner
DX: K21.9 Gastro-esophageal reflux disease without esophagitis (principal); B37.9 Candidiasis, unspecified; K59.01 Slow transit constipation
CPT/HCPCS: 99213

== ENCOUNTER → 2023-04-10 09:48 | Outpatient (BNVA) | payer MEDICARE, SELFPAY | PROVIDERS: Visit Provider Nurse Practitioner | DX: K21.9 Gastro-esophageal reflux disease without esophagitis (principal); K59.01 Slow transit constipation; B37.9 Candidiasis, unspecified | CPT/HCPCS: 99212 ==

== ENCOUNTER 2023-05-29 08:26 | Outpatient (AMB) | payer MEDICARE, SELFPAY ==
[2023-05-29 08:28] VITALS: BP 132/80; PULSE 58; O2SAT 98; BMI 43.5
--- NOTE | 2023-05-29 08:28 | A.OFFPC_ITS ---
Vital Signs 05/29/23 08:28 Height 5 ft 2 in Weight 238 lb BMI 43.5 BP 132/80 Blood Pressure Location Lt brachial Position Sitting Pulse 58 Pulse Source Pulse Oximeter Pulse Oximetry (%) 98 Oxygen Delivery Method Room Air Intake Visit Reasons: bp Floor Refinisher Required: No Accompanied by: Self / Same As Patient Allergies No Known Drug Allergies Adverse Reaction (Unknown, Verified 05/29/23 08:28) Unknown seasonal Allergy (Intermediate, Uncoded 05/29/23 08:28) Itchy Eyes Tobacco use date assessed: 05/29/23 Fall risk assessment: No Falls in past year Last assessed Fall Risk: 05/29/23 Dental Screening Dental Screen Date: 05/29/23 Did you have a dental visit in the last 12 months?: Yes Did you have a dental problem in the last 6 months where you did not have access to dental care?: No Was dental information given to patient?: Patient has dentist HPI HPI Comments History of Present Illness Details 83-year-old female past medical history significant for hypercholesteremia, GERD, hypertension and post herpetic neuralgia. Patient of last seen in March patient presents today for follow-up visit. Review of the notes patient seen by Gastroenterology recommended to continue on omeprazole bid for GERD. Bloodpressure optimal in office today. Patient reports continued post herpetic neuralgia pain, patient reports takes her gabepentin primarily at beditme with improvement of pain and able to sleep well. Offered prescription for capsacin cream to use during the day if needed. Patient reports uses a hemp cream or take ibuprofen with improvement of pain. FORMERLY [facility], [facility]1983 Medical History B12 deficiency Candidal intertrigo Constipation by delayed colonic transit History of Clostridioides difficile colitis History of smoking Hypovitaminosis D Obesity Post herpetic neuralgia Pure hypercholesterolemia Small intestinal bacterial overgrowth Voice hoarseness Surgical History Hx of cataract surgery Hx of tubal ligation Hx of tonsillectomy Hx of colonoscopy Family History Father Lung cancer Mother Cardiovascular disease Sister Lymph node cancer Brother Colon cancer Brother Pacemaker Maternal Aunt Breast cancer Social History Household Members: None Housing: Apartment Alcohol intake: current Alcohol intake frequency: holidays/special occasions only Alcohol type: other Patient Tobacco Use Status: Former Tobacco user Tobacco use type: Cigarette e-Cigarette/Vaping Use: Never Used Second Hand Smoke Exposure: No service: No Current occupational status: retired Cognitive needs: No Hearing needs: No Vision needs: Yes Questionnaire PHQ-9 Over the last 2 weeks, how often have you been bothered by any of the following problems? 1. Little interest or pleasure in doing things: not at all 2. Feeling down, depressed, or hopeless: not at all 3. Trouble falling or staying asleep, or sleeping too much: not at all 4. Feeling tired or having little energy: not at all 5. Poor appetite or overeating: not at all 6. Feeling bad about yourself - or that you are a failure or have let yourself or your family down: not at all 7. Trouble concentrating on things, such as reading the newspaper or watching television: not at all 8. Moving or speaking so slowly that other people could have noticed. Or the opposite - being so fidgety or restless that you have been moving around a lot more than usual: not at all 9. Thoughts that you would be better off or of hurting yourself in some way: not at all Total score: 0 Depression Screening Interpretation: Negative 56604 - PHQ-9 Billing: Yes Source: Developed by Drs. Jose Fairchild, Ruth Ochoa, Lexx Ponce and colleagues, with an educational kristie from [employer] Thrive Questionnaire Date Thrive assessed: 05/29/23 I am a: Patient What is your living situation today?: I have a steady place to live Within the past 12 months, did the food you bought not last and you didn't have the money to get more?: Never true Within the past 12 months, did you worry whether your food would run out before you got money to buy more?: Never true Do you have trouble paying for medicines?: No Do you have trouble getting transportation to medical appointments?: No Do you have trouble paying your heating and electricity bill?: No Do you have trouble taking care of your child, family member or friend?: No Do you have trouble with day-to-day activities such as bathing, preparing meals, shopping, managing finances, etc.?: No Are you currently unemployed and looking for a job?: No Are you interested in more education?: No Please select the resources that you would like help with: None Currently or been in a relationship where the following occur: no concerns repor gunner AUDIT C Alcohol Use Questionnaire (AUDIT-C) 1. How often do you have a drink containing alcohol?: Never Total Score: 0 BILLY-7 AMB Questionnaire BILLY-7 Date BILLY - 7 assessed: 05/29/23 Feeling nervous, anxious, or on edge: 0 = Not at all Not being able to stop or control worryin = Not at all Worrying too much about different things: 0 = Not at all Trouble relaxin = Not at all Being so restless that it is hard to sit still: 0 = Not at all Becoming easily annoyed or irritable: 0 = Not at all Feeling afraid as if something awful might happen: 0 = Not at all Total BILLY-7 score (0-4 normal; 5-9 mild; 10-14 moderate; 15-21 severe): 0 Source: Developed by Drs. Jose Fairchild, Ruth Ochoa, Lexx Ponce and colleagues, with an educational kristie from [employer] Review of Systems Const Denies chills, Denies fatigue, Denies fever(s) and Denies poor appetite Eyes Denies no additional complaints ENT Reports Normal hearing present Card Denies chest pain, Denies syncope, Denies rapid heart rate and Denies dyspnea Resp Denies cough and Denies dyspnea GI Denies change in stool character, Denies constipation, Denies diarrhea, Denies nausea and Denies vomiting Denies urinary frequency, Denies dysuria and Denies urinary urgency Neuro Reports Normal hearing present, Denies confusion and Denies syncope Psych Denies confusion Endo Denies fatigue Physical exam (Primary Care) Vital Signs: Last Vital Signs Pulse 58 05/29/23 08:28 BP 132/80 05/29/23 08:28 Pulse Ox 98 05/29/23 08:28 Oxygen Delivery Method Room Air 05/29/23 08:28 BMI result Body Mass Index 43.5 Tobacco/Smoking Status: Tobacco use Status Tobacco use date assessed 05/29/23 05/29/23 08:33 Patient Tobacco Use Status Former Tobacco user 05/29/23 08:33 Tobacco use type Cigarette 05/29/23 08:33 e-Cigarette/Vaping Use Never Used 05/29/23 08:33 PHQ-9: PHQ-9 Score PHQ-9: Total score 0 05/29/23 08:33 Depression Screening Interpretation: Negative Thrive Assessment: Date of Thrive Assessment Date Thrive assessed 05/29/23 05/29/23 08:33 Currently or been in a relationship where the following occur: no concerns reported Const General: No confusion Orientation/consciousness: No confusion HENMT Head: Yes normocephalic and Yes atraumatic Eyes Conjunctivae: conjunctivae normal Chest Chest palpation & inspection: normal inspection of the chest Resp Effort & Inspection: normal respiratory effort Auscultation: clear to auscultation bilaterally, no crackles, no rhonchi and no wheezes Cardio Rate: regular rate Rhythm: regular rhythm Heart sounds: S1 normal heart sound present and S2 normal heart sound present GI Inspection: Yes normal to inspection Neuro General: No confusion Cranial nerves: Yes Normal hearing present Extrem General: No edema Assessment and Plan Assessment & Plan (1) Essential hypertension: Code(s): I10 - Essential (primary) hypertension Plan: Continue on losartan 25mg daily. B/p goal < 140/90 Follow low salt diet and exercise. (2) GERD (gastroesophageal reflux disease): Code(s): K21.9 - Gastro-esophageal reflux disease without esophagitis Qualifiers: Esophagitis presence: esophagitis presence not specified Qualified Code(s): K21.9 - Gastro-esophageal reflux disease without esophagitis Plan: Continue on omeprazole BID Continue to follow with GI. Avoid the foods that cause that, usually spicy foods, tomato products, juices, coffee, soda and foods that you're sensitive to.? After eating do not lie down, allow 3-4 hours before lying down. And keep the head of the bed above 30 degrees to avoid the acid from going up. (3) Pure hypercholesterolemia: Code(s): E78.00 - Pure hypercholesterolemia, unspecified Plan: Continue on statin. Fasting lipid panel ordered. (4) Post herpetic neuralgia: Code(s): B02.29 - Other postherpetic nervous system involvement Plan: Continue on gabapentin Declined script for capsacin cream, patient reports uses hemp cream or takes ibuprofen as needed during the day with some relief. Plan Follow up in 3 months. Orders: Orders Comprehensive [place]. Panel Fast Today E78.00 - Pure hypercholesterolemia, unspecified Lipid Panel Today E78.00 - Pure hypercholesterolemia, unspecified Coding Level of Care Code Est Pt Level 4 (45386) Diagnoses Essential hypertension I10 Gastroesophageal reflux disease, unspecified whether esophagitis present K21.9 Esophagitis presence: esophagitis presence not specified Pure hypercholesterolemia E78.00 Post herpetic neuralgia B02.29
== END 2023-05-29 08:52 | disposition home or self-care (01) ==
PROVIDERS: PCP Internal Medicine; Visit Provider Nurse Practitioner Family
DX: I10 Essential (primary) hypertension (principal); K21.9 Gastro-esophageal reflux disease without esophagitis; E78.00 Pure hypercholesterolemia, unspecified; B02.29 Other postherpetic nervous system involvement
CPT/HCPCS: 99214

== ENCOUNTER 2023-08-08 09:51 | Outpatient (AMB) | payer MEDICARE, SELFPAY ==
--- NOTE | 2023-08-08 09:52 | A.OFFVIS_ITS ---
Intake Vital Signs 3 08/08/23 10:00 Height 5 ft 2 in Weight 238 lb 1.588 oz BMI 43.5 BP 182/77 H Blood Pressure Location Rt brachial Position Sitting Pulse 69 Intake Visit Reasons: 6 month fu Intake Note: Cece presents in the office as a 6 month follow up. 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 The nystatin really helped with the rash and she does not have it now but would like to have it on hand. She continues to struggle with post herpetic neuralgia and the gabapentin is not helping much. The gabapentin also has quite sedating so she skipping her daytime doses. She finds that pain limits her activity and this is causing wt gain. I recommend she revisit this with her PCP and perhaps they can consider other medications in the clinical pathway to address this such as carbamazepine, lamictal or SSNI tx. She has failed amitriptyline, lidocaine patches, and most other topical therapies given by Pain Management. ROV 6 mos. (2) Gabriela albicans infection: Code(s): B37.9 - Candidiasis, unspecified (3) Constipation by delayed colonic leung sit: Code(s): K59.01 - Slow transit constipation Plan: She has not needed any intervention for this recently. Medications: New nystatin 1 appl topical QI D 30 grams 3RF B37.9 - Candidiasi s, unspecified Refilled omeprazole 20 mg PO BID 90 d ays 180 caps 1RF K21.9 - Gastro-eso phageal reflux dis ease without esoph agitis Laboratory Tests 03/05/23 07:38 Estimated GFR 50 Total Bilirubin 1.0 AST 19 ALT 12 Alkaline Phosphata se 74 TODAY'S VISIT She continues to struggle with her post herpetic neuralgia on her flank. Her GERD remains well controlled on omeprazole twice a day. She is having more trouble with her stooling. She is having incomplete evacuation and then some mild rectal leakage this is very irritating to try to a keep clear. It sounds like she really needs a mild stimulant laxative so will try her on senna and titrate to affect her side effect. Her brother is not doing well the [facility] when she tries to visit him frequently apparently his cardiac function is down to an ejection fraction of 10%. A review of her history and covers the fact that she has not had a colonoscopy since 2005! This was with Dr. Ruelas the time it uncovered tubular adenoma. She was educated-because she did not know this-that she should have been having colonoscopies every 5 years since given her family history in this finding. She is agreeable to a colonoscopy given the fact that her general health is quite good. There are no prior problems with anesthesia or sedation. She had cardiac catheterization for shortness of breath in the past but was normal along with her ejection fraction and there are no diagnosed respiratory problems. There are no defects disease problems. Her brother of colorectal cancer and low range last colonoscopy was in 2005 when she had 1 tubular adenoma removed with Dr. Ruelas. Return office visit in 6 weeks to evaluate the reaction to the senna. [facility] Medical History Post herpetic neuralgia History of smoking B12 deficiency Candidal intertrigo Constipation by delayed colonic transit Obesity Hypovitaminosis D Voice hoarseness Pure hypercholesterolemia Small intestinal bacterial overgrowth History of Clostridioides difficile colitis Surgical History Hx of cataract surgery Hx of tubal ligation Hx of tonsillectomy Hx of colonoscopy Family History Father Lung cancer Mother Cardiovascular disease Sister Lymph node cancer Brother Colon cancer Brother Pacemaker Maternal Aunt Breast cancer Social History Household Members: None Housing: Apartment Alcohol intake: current Alcohol intake frequency: holidays/special occasions only Alcohol type: other Patient Tobacco Use Status: Former Tobacco user Tobacco use type: Cigarette e-Cigarette/Vaping Use: Never Used Second Hand Smoke Exposure: No service: No Current occupational status: retired Cognitive needs: No Hearing needs: No Vision needs: Yes Review of Systems Const Denies fatigue, Denies fever(s), Denies night sweats, Denies poor appetite and Denies weight loss ENT Reports Normal hearing present, Denies dental pain, Denies dysphagia, Denies hearing loss, Denies mouth pain, Denies odynophagia, Denies throat swelling, Denies tongue swelling and Reports other (Dentition adequate) Card Reports no additional complaints Resp Reports no additional complaints GI Denies abdominal pain, Denies melena, Denies bloating, Denies hematochezia, Reports constipation, Denies GI cramping, Denies dysphagia, Denies excessive flatus, Denies early satiety, Reports heartburn, Denies diarrhea, Denies nausea, Denies odynophagia, Denies vomiting and Denies hematemesis Reports flank pain (Herpetic neuralgia) Skin/Breast Denies pruritus, Denies lesions, Denies rash, Reports skin pain and Denies jaundice Neuro Reports Normal hearing present and Denies Abnormal speech present Endo Denies fatigue Aller/Immun Denies throat swelling and Denies tongue swelling Physical Exam Vital Signs: Last Vital Signs Pulse 69 08/08/23 10:00 BP 182/77 H 08/08/23 10:00 BMI result Body Mass Index 43.5 Const General: cooperative, no acute distress, well developed and well groomed Nutritional Appearance: well nourished and obese Orientation/consciousness: oriented to person, oriented to place and oriented to time Limitations: No language barrier HEENT Head: Yes normocephalic and Yes atraumatic Eyes General: appearance normal, both eyes and all related structures Pupils: Equal, round and reactive pupils present Neck Neck: Yes normal visual inspection and Yes no lymphadenopathy Thyroid: Thyroid normal Resp Effort & Inspection: normal respiratory effort and able to speak in complete sentences Auscultation: clear to auscultation bilaterally Cardio Rate: regular rate Rhythm: regular rhythm Heart sounds: Normal, physiologic split S2 sound present Peripheral pulses: radial pulses present and posterior tibial pulses present GI Inspection: No distended, Yes Abdominal panniculus present and Yes obesity Palpation (GI): Soft to palpation, nontender, no guarding, not rigid and No hepatosplenomegaly present Percussion: Yes normal to percussion Auscultation: normal bowel sounds Rectal Exam - Female: deferred Abdomen image: 2 1. surgical scar Skin General skin exam: no rashes or lesions noted, turgor normal, skin not dry, no jaundice, No spider nevi and no striae Rashes: no rashes Nails: normal Neuro General: oriented to person, oriented to place and oriented to time Cranial nerves: Yes Equal, round and reactive pupils present and Yes Normal hearing present Speech: No Abnormal speech present Extrem General: Yes normal to inspection, No clubbing, No cyanosis and Yes edema (bilateral non pitting) Psych Appearance: grossly normal and well kempt Mental Status: mental status grossly normal Speech and movement: Normal speech and movement present Affect: normal affect Attitude: cooperative Thought process: Normal thought process present and not confabulating Thought content: Normal thought content present Insight: Fair insight present (Psych) Judgement: Fair judgement present (Psych) Results Reviewed Results Reviewed: Laboratory Tests 03/05/23 07:38 Estimated GFR 50 Total Bilirubin 1.0 AST 19 ALT 12 Alkaline Phosphatase 74 Assessment & Plan Assessment & Plan (1) GERD (gastroesophageal reflux disease): Code(s): K21.9 - Gastro-esophageal reflux disease without esophagitis Qualifiers: Esophagitis presence: esophagitis presence not specified Qualified Code(s): K21.9 - Gastro-esophageal reflux disease without esophagitis (2) Constipation by delayed colonic transit: Code(s): K59.01 - Slow transit constipation (3) Tubular adenoma of colon: Code(s): D12.6 - Benign neoplasm of colon, unspecified (4) Family history of colon cancer: Comment: brother Code(s): Z80.0 - Family history of malignant neoplasm of digestive organs Plan She continues to struggle with her post herpetic neuralgia on her flank. Her GERD remains well controlled on omeprazole twice a day. She is having more trouble with her stooling. She is having incomplete evacuation and then some mild rectal leakage this is very irritating to try to a keep clear. It sounds like she really needs a mild stimulant laxative so will try her on senna and titrate to affect her side effect. Her brother is not doing well the [facility] when she tries to visit him frequently apparently his cardiac function is down to an ejection fraction of 10%. A review of her history and covers the fact that she has not had a colonoscopy since 2005! This was with Dr. Ruelas the time it uncovered tubular adenoma. She was educated-because she did not know this-that she should have been having colonoscopies every 5 years since given her family history in this finding. She is agreeable to a colonoscopy given the fact that her general health is quite good. There are no prior problems with anesthesia or sedation. She had cardiac catheterization for shortness of breath in the past but was normal along with her ejection fraction and there are no diagnosed respiratory problems. There are no defects disease problems. Her brother of colorectal cancer and low range last colonoscopy was in 2005 when she had 1 tubular adenoma removed with Dr. Ruelas. Return office visit in 6 weeks to evaluate the reaction to the senna. Orders: Orders 2 Colonoscopy - GI Use Only Today D12.6 - Benign neoplasm of colon, unspecified, Z80.0 - Family history of malignant neoplasm of digestive organs Medications: New 2 sennosides (Senna Laxative) 17.2 mg (2 x 8.6 mg) PO BEDTIME 60 tabs 6RF K59.01 - Slow transit constipation sodium,potassium,mag sulfates 17.5-3.13-1.6 gram (Suprep Bowel Prep Kit) 480 mL orally; 354 mL 0RF D12.6 - Benign neoplasm of colon, unspecified Refilled 2 omeprazole 20 mg PO BID 90 days 180 caps 1RF K21.9 - Gastro-esophageal reflux disease without esophagitis Coding Level of Care Code Est Pt Level 4 (13427) Diagnoses Gastroesophageal reflux disease, unspecified whether esophagitis present K21.9 Esophagitis presence: esophagitis presence not specified Constipation by delayed colonic transit K59.01 Tubular adenoma of colon D12.6 Family history of colon cancer Z80.0
[2023-08-08 10:00] VITALS: BP 182/77; PULSE 69; BMI 43.5
== END 2023-08-08 11:07 | disposition home or self-care (01) ==
PROVIDERS: PCP Internal Medicine; Visit Provider Nurse Practitioner
DX: K21.9 Gastro-esophageal reflux disease without esophagitis (principal); K59.01 Slow transit constipation; D12.6 Benign neoplasm of colon, unspecified; Z80.0 Family history of malignant neoplasm of digestive organs
CPT/HCPCS: 99214

== ENCOUNTER → 2023-08-08 09:51 | Outpatient (BNVA) | payer MEDICARE, SELFPAY | PROVIDERS: PCP Internal Medicine; Visit Provider Nurse Practitioner | DX: K21.9 Gastro-esophageal reflux disease without esophagitis (principal); K59.01 Slow transit constipation; D12.6 Benign neoplasm of colon, unspecified; Z80.0 Family history of malignant neoplasm of digestive organs | CPT/HCPCS: 99212 ==

== ENCOUNTER 2023-09-17 07:39 | Outpatient (REF) | payer MEDICARE, SELFPAY | END 2023-09-17 07:40 | disposition home or self-care (01) | LOC: HO.MAMMO 07:39 | PROVIDERS: PCP Internal Medicine; Visit Provider Internal Medicine | DX: Z12.31 Encounter for screening mammogram for malignant neoplasm of breast (principal) | CPT/HCPCS: 77063; 77067 ==

== ENCOUNTER → 2023-09-17 08:00 | Outpatient (BNV) | payer MEDICARE, SELFPAY | PROVIDERS: PCP Internal Medicine; Visit Provider Radiology Diagnostic Radiology | DX: Z12.31 Encounter for screening mammogram for malignant neoplasm of breast (principal) | CPT/HCPCS: 77063; 77067 ==

== ENCOUNTER 2023-09-18 08:23 | Outpatient (AMB) | payer MEDICARE, SELFPAY ==
[2023-09-18 08:36] VITALS: BP 157/91; PULSE 55; BMI 44.3
--- NOTE | 2023-09-18 08:36 | A.OFFVIS_ITS ---
Intake Vital Signs 09/18/23 08:36 Height 5 ft 2 in Weight 242 lb 4.355 oz BMI 44.3 BP 157/91 H Blood Pressure Location Rt brachial Position Sitting Pulse 55 Intake Visit Reasons: 6 week follow up Intake Note: Patient presents to in office visit today in follow up [facility]IC. CC: Patient reports having a BM every day but they're not as good as she would like. Denies other GI symptoms or concerns today. Allergies No Known Drug Allergies Adverse Reaction (Unknown, Verified 09/18/23 08:40) Unknown seasonal Allergy (Intermediate, Uncoded 08/08/23 10:00) Itchy Eyes HPI 6 week follow up HPI Details Assessment & Plan (1) GERD (gastroesophageal reflux diseas e): Code(s): K21.9 - Gastro-esophageal reflux disease without esophagitis Qualifiers: Esophagitis presence: esophagitis presence not specified Qualified Code(s): K21.9 - Gastro-esophageal reflux disease without esophagitis (2) Constipation by delayed colonic leung sit: Code(s): K59.01 - Slow transit constipation (3) Tubular adenoma of colon: Code(s): D12.6 - Benign neoplasm of colon, unspecified (4) Family history of colon cancer: Comment: brother Code(s): Z80.0 - Family history of malignant neoplasm of digestive organs Plan She continues to struggle with her post herpetic neuralgia on her flank. Her GERD remains well controlled on omeprazole twice a day. She is having more trouble with her stooling. She is having incomplete evacuation and then some mild rectal leakage this is very irritating to try to a keep clear. It sounds like she really needs a mild stimulant laxative so will try her on senna and titrate to affect her side effect. Her brother is not doing well the [facility] when she tries to visit him frequently apparently his cardiac function is down to an ejection fraction of 10%. A review of her history and covers the fact that she has not had a colonoscopy since 2005! This was with Dr. Ruelas the time it uncovered tubular adenoma. She was educated-because she did not know this-that she should have been having colonoscopies every 5 years since given her family history in this finding. She is agreeable to a colonoscopy given the fact that her general health is quite good. There are no prior problems with anesthesia or sedation. She had cardiac catheterization for shortness of breath in the past but was normal along with her ejection fraction and there are no diagnosed respiratory problems. There are no defects disease problems. Her brother of colorectal cancer and low range last colonoscopy was in 2005 when she had 1 tubular adenoma removed with Dr. Ruelas. Return office visit in 6 weeks to evaluate the reaction to the senna. Orders: Orders Colonoscopy - GI U se Only Today D12.6 - Benign ezio plasm of colon, un specified, Z80.0 - Family history of malignant neoplas m of digestive org ans Medications: New sennosides (Senna Laxative) 17.2 mg (2 x 8.6 m g) PO BEDTIME 60 t abs 6RF K59.01 - Slow leung sit constipation sodium,potassium,m ag sulfates 17.5-3 .13-1.6 gram (Supr ep Bowel Prep Kit) 480 mL orally; 3 54 mL 0RF D12.6 - Benign ezio plasm of colon, un specified Refilled omeprazole 20 mg PO BID 90 d ays 180 caps 1RF K21.9 - Gastro-eso phageal reflux dis ease without esoph agitis COLONOSCOPY SCHEDULED FOR 01/08/2024 BIOPSY TODAY'S VISIT She continues on her omeprazole bid with good control of her GERD and the senna has helped with moving her bowels. She was having a lot of trouble with rectal leakage. At time she is satisfied with her GI regimen. Return office visit in 6 months and after the colonoscopy. [facility] Medical History Post herpetic neuralgia History of smoking B12 deficiency Candidal intertrigo Constipation by delayed colonic transit Obesity Hypovitaminosis D Voice hoarseness Pure hypercholesterolemia Small intestinal bacterial overgrowth History of Clostridioides difficile colitis Surgical History Hx of cataract surgery Hx of tubal ligation Hx of tonsillectomy Hx of colonoscopy Family History Father Lung cancer Mother Cardiovascular disease Sister Lymph node cancer Brother Colon cancer Brother Pacemaker Maternal Aunt Breast cancer Social History Household Members: None Housing: Apartment Alcohol intake: current Alcohol intake frequency: holidays/special occasions only Alcohol type: other Patient Tobacco Use Status: Former Tobacco user Tobacco use type: Cigarette e-Cigarette/Vaping Use: Never Used Second Hand Smoke Exposure: No service: No Current occupational status: retired Cognitive needs: No Hearing needs: No Vision needs: Yes Review of Systems Const Denies fatigue, Denies fever(s), Denies night sweats, Denies poor appetite, Reports weight gain and Denies weight loss ENT Reports Normal hearing present, Denies dental pain, Denies dysphagia, Denies hearing loss, Denies mouth pain, Denies odynophagia, Denies throat swelling, Denies tongue swelling and Reports other (Dentition adequate) Card Reports no additional complaints Resp Reports no additional complaints GI Denies abdominal pain, Denies melena, Denies bloating, Denies hematochezia, Reports constipation, Denies GI cramping, Denies dysphagia, Denies excessive flatus, Denies early satiety, Reports heartburn, Denies diarrhea, Denies nausea, Denies odynophagia, Denies vomiting and Denies hematemesis Skin/Breast Denies pruritus, Denies lesions, Denies rash, Reports skin pain and Denies jaundice Neuro Reports Normal hearing present and Denies Abnormal speech present Endo Denies fatigue Aller/Immun Denies throat swelling and Denies tongue swelling Physical Exam Vital Signs: Last Vital Signs Pulse 55 09/18/23 08:36 BP 157/91 H 09/18/23 08:36 BMI result Body Mass Index 44.3 Const General: cooperative, no acute distress, well developed and well groomed Nutritional Appearance: well nourished and obese Orientation/consciousness: oriented to person, oriented to place and oriented to time Limitations: No language barrier HEENT Head: Yes normocephalic and Yes atraumatic Eyes General: appearance normal, both eyes and all related structures Pupils: Equal, round and reactive pupils present Neck Neck: Yes normal visual inspection and Yes no lymphadenopathy Thyroid: Thyroid normal Resp Effort & Inspection: normal respiratory effort and able to speak in complete sentences Auscultation: clear to auscultation bilaterally Cardio Rate: regular rate Rhythm: regular rhythm Heart sounds: Normal, physiologic split S2 sound present Peripheral pulses: radial pulses present and posterior tibial pulses present GI Inspection: No distended, Yes Abdominal panniculus present and Yes obesity Palpation (GI): Soft to palpation, nontender, no guarding, not rigid and No hepatosplenomegaly present Percussion: Yes normal to percussion Auscultation: normal bowel sounds Rectal Exam - Female: deferred Skin General skin exam: no rashes or lesions noted, turgor normal, skin not dry, no jaundice, No spider nevi and no striae Rashes: no rashes Nails: normal Neuro General: oriented to person, oriented to place and oriented to time Cranial nerves: Yes Equal, round and reactive pupils present and Yes Normal hearing present Speech: No Abnormal speech present Extrem General: Yes normal to inspection, No clubbing, No cyanosis and No edema Psych Appearance: grossly normal and well kempt Mental Status: mental status grossly normal Speech and movement: Normal speech and movement present Affect: normal affect Attitude: cooperative Thought process: Normal thought process present and not confabulating Thought content: Normal thought content present Insight: Fair insight present (Psych) Judgement: Fair judgement present (Psych) Assessment & Plan Assessment & Plan (1) GERD (gastroesophageal reflux disease): Code(s): K21.9 - Gastro-esophageal reflux disease without esophagitis Qualifiers: Esophagitis presence: esophagitis presence not specified Qualified Code(s): K21.9 - Gastro-esophageal reflux disease without esophagitis (2) Constipation by delayed colonic transit: Code(s): K59.01 - Slow transit constipation (3) Abdominal bloating: Code(s): R14.0 - Abdominal distension (gaseous) (4) Tubular adenoma of colon: Code(s): D12.6 - Benign neoplasm of colon, unspecified Plan COLONOSCOPY SCHEDULED FOR 01/08/2024 BIOPSY TODAY'S VISIT She continues on her omeprazole bid with good control of her GERD and the senna has helped with moving her bowels. She was having a lot of trouble with rectal leakage. At time she is satisfied with her GI regimen. Return office visit in 6 months and after the colonoscopy. Coding Level of Care Code Est Pt Level 3 (01115) Diagnoses Gastroesophageal reflux disease, unspecified whether esophagitis present K21.9 Esophagitis presence: esophagitis presence not specified Constipation by delayed colonic transit K59.01 Abdominal bloating R14.0 Tubular adenoma of colon D12.6
== END 2023-09-18 09:03 | disposition home or self-care (01) ==
PROVIDERS: PCP Internal Medicine; Visit Provider Nurse Practitioner
DX: K21.9 Gastro-esophageal reflux disease without esophagitis (principal); K59.01 Slow transit constipation; R14.0 Abdominal distension (gaseous); D12.6 Benign neoplasm of colon, unspecified
CPT/HCPCS: 99213

== ENCOUNTER → 2023-09-18 08:23 | Outpatient (BNVA) | payer MEDICARE, SELFPAY | PROVIDERS: PCP Internal Medicine; Visit Provider Nurse Practitioner | DX: K21.9 Gastro-esophageal reflux disease without esophagitis (principal); K59.01 Slow transit constipation; R14.0 Abdominal distension (gaseous); Z79.899 Other long term (current) drug therapy | CPT/HCPCS: 99212 ==

== ENCOUNTER 2023-09-27 08:21 | Outpatient (AMB) | payer MEDICARE, SELFPAY ==
--- NOTE | 2023-09-27 08:26 | A.OFFVIS_ITS ---
Intake Vital Signs 09/27/23 08:27 09/27/23 10:16 Height 5 ft 2 in Weight 240 lb BMI 43.9 BP 170/88 H 165/80 H Blood Pressure Location Rt brachial Lt brachial Position Sitting Sitting Intake Visit Reasons: AWV Intake Note: Patient here for an annual wellness visit Preventative Maintenance Technician Required: No Accompanied by: Self / Same As Patient Allergies No Known Drug Allergies Adverse Reaction (Unknown, Verified 09/27/23 08:43) Unknown seasonal Allergy (Intermediate, Uncoded 09/27/23 08:43) Itchy Eyes Medication List - Last Reconciled 09/27/23 by Niyah Mercado MD aspirin 81 mg PO DAILY atorvastatin 10 mg PO DAILY blood pressure test kit-large As directed cholecalciferol (vitamin D3) 50 mcg PO DAILY 90 days furosemide (Lasix) 40 mg (2 x 20 mg) PO DAILY 90 days gabapentin 600 mg PO .every 6 hours 90 days losartan 25 mg PO DAILY 90 days omeprazole 20 mg PO BID 90 days sennosides (Senna Laxative) 17.2 mg (2 x 8.6 mg) PO BEDTIME sodium,potassium,mag sulfates 17.5-3.13-1.6 gram (Suprep Bowel Prep Kit) 480 mL orally; HPI HPI Comments History of Present Illness Details This is an 83-year-old female that comes her for her Medicare wellness exam. Will have colonoscopy soon due to family history. Mammogram done this month and results are still pending. PPP handed to patient. Vaccines are up-to-date. Needs Td in April 2024. Able to walk with no assistive device. MOLST was completed today. Blood pressure elevated and will be recheck in 3 weeks by nurse navigator. I will increase losartan from 25 mg to 50 mg once a day. She is morbidly obese with a BMI of 43.9 and would like something to lose weight. She also has mild major depression but denied the need for medication or counseling. [facility] Medical History (Updated 09/27/23 @ 10:20 by Niyah Mercado MD) Post herpetic neuralgia History of smoking B12 deficiency Candidal intertrigo Constipation by delayed colonic transit Obesity Hypovitaminosis D Voice hoarseness Pure hypercholesterolemia Small intestinal bacterial overgrowth History of Clostridioides difficile colitis Surgical History Hx of cataract surgery Hx of tubal ligation Hx of tonsillectomy Hx of colonoscopy Family History Father Lung cancer Mother Cardiovascular disease Sister Lymph node cancer Brother Colon cancer Brother Pacemaker Maternal Aunt Breast cancer Social History Household Members: None Housing: Apartment Alcohol intake: current Alcohol intake frequency: holidays/special occasions only Alcohol type: other Patient Tobacco Use Status: Former Tobacco user Tobacco use type: Cigarette e-Cigarette/Vaping Use: Never Used Second Hand Smoke Exposure: No service: No Current occupational status: retired Cognitive needs: No Hearing needs: No Vision needs: Yes Questionnaire Medicare Wellness Checkup What is your age?: 80 or older What gender do you identify with?: female During the past 4 weeks, how much have you been bothered by emotional problems such as feeling anxious, depressed, irritable, sad or downhearted, and blue?: moderately During the past 4 weeks, has your physical & emotional health limited your social activities with family, friends, neighbors, or groups?: moderately During the past 4 weeks, how much bodily pain have you generally had?: moderate pain During the past 4 weeks, was someone available to help you if you needed & wanted help?: no, not at all During the past 4 weeks, what was the hardest physical activity you could do for at least 2 minutes?: moderate Can you get to places out of walking distance without help? (For eg., can you travel alone on buses, taxis or drive your car?): Yes Can you go shopping for groceries or clothes without someone's help?: Yes Can you prepare your own meals?: Yes Can you do your housework without help?: Yes Because of any health problems, do you need the help of another person with your personal care needs such as eating, bathing, dressing or getting around the house?: No Can you handle your own money without help?: Yes During the past 4 weeks, how would you rate your health in general?: good During the past 4 weeks how have things been going for you?: pretty well Are you having difficulties driving your car?: no Do you always fasten your seat belt when you are in a car?: yes, usually During past 4 weeks, have you been bothered by the following: never: Falling or dizzy when standing up, Sexual problems?, Trouble eating well? and Problems using the telephone?, sometimes: Tiredness or fatigue? and always: Teeth or denture problems? Have you fallen 2 or more times in the past year?: No Are you afraid of falling?: No Are you a smoker?: no During the past 4 weeks, how many drinks of wine, beer, or other alcoholic beverages did you have?: 1 drink or less per week Do you exercise for about 20 minutes 3 or more times a week?: no, I usually do not exercise this much Have you been given information to help with the following?: yes: Hazards in your house that might hurt you? and yes: Keeping track of your medications? How often do you have trouble taking medicines the way you have been told to take them?: I always take medicine as prescribed How confident are you that you can control & manage most of your health problems?: very confident What is your race?: White Mini Mental State Exam (MMSE) Orientation What is the (year) (season) (date) (day) (month)?: year, season, date, day and month Where are we (state) (county) (town or city) (hospital) (floor)?: state, county, town or city, hospital/clinic and floor Registration Name of 3 unrelated objects clearly and slowly, then ask patient to repeat all 3 of them. (1st repeat determines score. Make sure they can repeat all three): object 1, object 2 and object 3 Attention & Calculation (CHOOSE ONE) Spell WORLD backwards (DLROW): 5 letters Recall Ask patient to repeat the 3 items from question #3.: object 1, object 2 and object 3 Language Show patient a wristwatch & ask what it is. Repeat for pencil.: watch and pencil Ask the patient to repeat the phrase 'No ifs, ands, or buts' after you.: correct Ask the patient to 'take a piece of paper with their right hand' 'fold paper in half' 'place paper on floor': take paper in right hand, fold paper in half and place paper on floor Print the sentence 'CLOSE YOUR EYES' on a piece. If patient actually closes eyes then score.: followed written direction Give patient a blank piece of paper & ask to write a sentence. Score if it contains a noun & verb.: sentence contains subject and verb Ask patient to copy figure of intersecting pentagons exactly. Score if all 10 angles & 2 intersects are included.: all 10 angles present & 2 are intersected Score Score: 30 Activity of Daily Living Bathing - sponge bath, tub bath or shower: receives no assistance (gets in/out by self, if usual bathing means Dressing - getting clothes from closets & drawers, including inner/outer garments & fasteners.: gets clothes & gets completely dressed without help Toileting - going to the 'toilet room' for urine/bowel elimination & cleaning self/arranging clothes: goes to toilet room, cleans self, arranges clothes without help Transfer: moves in & out of bed and chair without help (may use support object) Continence: controls urination/bowel movements completely by self Feeding: feeds self without help Total Score: 0 Information obtained from: patient Using telephone: independent Traveling: independent Shopping: independent Preparing meals: independent Housework: independent Taking medicine: independent Managing money: independent PHQ-9 Over the last 2 weeks, how often have you been bothered by any of the following problems? 1. Little interest or pleasure in doing things: several days 2. Feeling down, depressed, or hopeless: several days 3. Trouble falling or staying asleep, or sleeping too much: not at all 4. Feeling tired or having little energy: several days 5. Poor appetite or overeating: not at all 6. Feeling bad about yourself - or that you are a failure or have let yourself or your family down: several days 7. Trouble concentrating on things, such as reading the newspaper or watching television: several days 8. Moving or speaking so slowly that other people could have noticed. Or the opposite - being so fidgety or restless that you have been moving around a lot more than usual: not at all 9. Thoughts that you would be better off or of hurting yourself in some way: not at all Total score: 5 Depression Screening Interpretation: Positive Depression Screening Follow-up: Existing condition Depression Screening Done: Yes 18046 - PHQ-9 Billing: Yes Source: Developed by Drs. Jose Fairchild, Lexx Herman and colleagues, with an educational kristie from [employer]. BILLY-7 AMB Questionnaire BILLY-7 Date BILLY - 7 assessed: 09/27/23 Feeling nervous, anxious, or on edge: 0 = Not at all Not being able to stop or control worryin = Not at all Worrying too much about different things: 0 = Not at all Trouble relaxin = Not at all Being so restless that it is hard to sit still: 0 = Not at all Becoming easily annoyed or irritable: 0 = Not at all Feeling afraid as if something awful might happen: 0 = Not at all Total BILLY-7 score (0-4 normal; 5-9 mild; 10-14 moderate; 15-21 severe): 0 Source: Developed by Drs. Jose Fairchild, Lexx Herman and colleagues, with an educational kristie from [employer]. BILLY-7 Assessment Billing BILLY-7 Assessment Tool: BILLY-7 Assessment 09111 Thrive Questionnaire Date Thrive assessed: 09/27/23 I am a: Patient What is your living situation today?: I have a steady place to live Within the past 12 months, did the food you bought not last and you didn't have the money to get more?: Never true Within the past 12 months, did you worry whether your food would run out before you got money to buy more?: Never true Do you have trouble paying for medicines?: No Do you have trouble getting transportation to medical appointments?: No Do you have trouble paying your heating and electricity bill?: No Do you have trouble taking care of your child, family member or friend?: No Do you have trouble with day-to-day activities such as bathing, preparing meals, shopping, managing finances, etc.?: No Are you currently unemployed and looking for a job?: No Are you interested in more education?: No Please select the resources that you would like help with: None Currently or been in a relationship where the following occur: no concerns reported THRIVE Score: 0 AUDIT C Alcohol Use Questionnaire (AUDIT-C) 1. How often do you have a drink containing alcohol?: Monthly or less 2. How many drinks containing alcohol do you have on a typical day when you are drinking?: 1 or 2 3. How often do you have six or more drinks on one occasion?: Never Total Score: 1 Fall Risk Assessment Fall Risk Assessment Fall risk assessment: No Falls in past year Review of Systems Const All systems reviewed & are unremarkable except as noted in HPI and below Eyes Reports no additional complaints, Denies change in vision and Denies other visual disturbances Card Denies chest pain at rest, Denies chest pain with activity, Denies edema, Denies irregular heart rhythm, Denies claudication, Denies dyspnea, Denies dyspnea on exertion, Denies orthopnea, Denies paroxysmal nocturnal dyspnea and Denies slow heart rate Resp Denies cough, Denies dyspnea and Denies dyspnea on exertion GI Denies abdominal pain, Denies change in bowel habits, Denies excessive flatus, Denies nausea and Denies vomiting Denies urinary incontinence, Denies urinary hesitancy and Denies urinary urgency Musc Denies abnormal gait, Denies atrophy, Denies deformity and Denies limited range of motion Skin/Breast Denies bleeding lesions, Denies changing lesions and Denies rash Neuro Denies abnormal gait, Denies behavioral changes, Denies confusion and Denies lack of coordination Psych Denies behavioral changes and Denies confusion Physical Exam Vital Signs: Last Vital Signs BP 170/88 H 09/27/23 08:27 BMI result Body Mass Index 43.9 Const General: No confusion Orientation/consciousness: No confusion Resp Auscultation: clear to auscultation bilaterally Cardio Heart sounds: S1 normal heart sound present and S2 normal heart sound present Neuro General: No confusion Gait exam (Neuro): Normal gait present Romberg Test: Negative Assessment & Plan Assessment & Plan (1) Encounter for Medicare annual wellness exam: Code(s): Z00.00 - Encounter for general adult medical examination without abnormal findings Plan: Repeat in a year. (2) Morbid obesity with BMI of 40.0-44.9, adult: Code(s): E66.01 - Morbid (severe) obesity due to excess calories; Z68.41 - Body mass index [BMI] 40.0-44.9, adult Plan: Start wegovy. BMI goal is less than 30. (3) Mild major depression: Code(s): F32.0 - Major depressive disorder, single episode, mild Plan: Advised to let me know if counseling or medication is needed. Orders: Orders XR DEXA axial skeleton Today N95.9 - Unspecified menopausal and perimenopausal disorder Medications: New losartan 50 mg PO DAILY 90 days 90 tabs 1RF I10 - Essential (primary) hypertension semaglutide (weight loss) (Irina) administer weeks 1 through 4 of therapy 0.25 mg (0.5 mL) subcut QWEEK 28 days 2 mL 0RF E66.01 - Morbid (severe) obesity due to excess calories, Z68.41 - Body mass index [BMI] 40.0-44.9, adult Discontinued losartan Discontinued Reason: Patient Completed Course 25 mg PO DAILY 90 days 90 tabs 1RF I10 - Essential (primary) hypertension Quality Reporting (2019) Fall Risk Screening ([facility] 139) Fall risk assessment: No Falls in past year Depression/Bipolar (159/160/161/177) PHQ-9: Total score: 5 Coding Level of Care Code Medicare First (G0438) Diagnoses Encounter for Medicare annual wellness exam Z00.00 Morbid obesity with BMI of 40.0-44.9, adult E66.01; Z68.41 Mild major depression F32.0 CPT Codes Advance Care Planning - Time spent: 1-15 minutes, on File ([id number]) Additional Codes BILLY-7 Assessment Billing - BILLY-7 Assessment Tool: BILLY-7 Assessment [id number] ([id number]) Time Spent (min) 38 Advance Care Planning Advance Care Planning discussion: Completed/Scanned Date of discussion: 09/27/23 Who was present: patient and me Forms completed: MOLST Time spent: 1-15 minutes, on File Actual minutes spent: 5
[2023-09-27 08:27] VITALS: BP 170/88; BMI 43.9
[2023-09-27 10:16] VITALS: BP 165/80
== END 2023-09-27 09:21 | disposition home or self-care (01) ==
PROVIDERS: PCP Internal Medicine; Visit Provider Internal Medicine
DX: Z00.00 Encounter for general adult medical examination without abnormal findings (principal); E66.01 Morbid (severe) obesity due to excess calories; Z68.41 Body mass index [BMI] 40.0-44.9, adult; F32.0 Major depressive disorder, single episode, mild
CPT/HCPCS: 1123F; G0438

== ENCOUNTER 2023-10-23 08:06 | Outpatient (REF) | payer MEDICARE, SELFPAY ==
--- NOTE | ~2023-10-23 | MM_ITS ---
EXAMINATION: BONE DENSITOMETRY CLINICAL INDICATION: Unspecified menopausal and perimenopausal disorder. COMPARISON: This is the patient's baseline examination. TECHNIQUE: Using a [employer] DXA System (software version: 13.1) manufactured by [employer], dual-energy x-ray absorptiometry was performed of the lumbar spine and left hip. The images are of good technical quality. Summary results are attached. FINDINGS: LEFT FEMUR, NECK: BMD 0.747 g/cm2, Z-score -0.2, T-score -2.1, osteopenia. LEFT FEMUR, TOTAL: BMD 0.803 g/cm2, Z-score 0.1, T-score -1.6, osteopenia. AP SPINE L1-L4: BMD 0.986 g/cm2, Z-score -0.5, T-score -1.6, osteopenia. IDENTIFIED RISK FACTORS: Height loss, low calcium intake. Early menopause, secondary osteoporosis, anticonvulsants. HISTORY OF FRACTURE: None listed. MEDICATIONS: Vitamin D. MM/XR DEXA axial skeleton IMPRESSION: 1. DIAGNOSIS: Osteopenia based on the lowest T-score value of -2.1 in the femoral neck applying World Health Organization criteria. 2. 10-YEAR FRACTURE RISK PREDICTION, FRAX: Major osteoporotic fracture (clinical spine, forearm, hip or shoulder) 15.1%. Hip fracture 4.7%. 3. Treatment Recommendations: NOF guidelines recommend consideration for treatment in postmenopausal women and men age 50 and older presenting with the following: -A hip or vertebral (clinical or morphometric) fracture. -T-score less than or equal to -2.5 at the femoral neck or spine after appropriate evaluation to exclude secondary causes. -Low bone mass at the hip or spine and a 10-year fracture probability by FRAX of greater than or equal to 3% for hip fracture or greater than or equal to 20% for major osteoporotic fracture based on the [place] adapted WHO algorithm. 4. Other Recommendations: All treatment decisions require clinical judgment and consideration of individual patient factors, including patient preferences, comorbidities, previous drug use, risk factors not captured in the FRAX model (e.g. frailty, falls, vitamin D deficiency, increased bone turnover, interval significant decline in bone density) and possible under or overestimation of fracture risk by FRAX. Additional medical evaluation for secondary cause of low bone mineral density may be appropriate. FUTURE SCAN RECOMMENDATION: People with diagnosed cases of osteoporosis or at high risk for fracture should have regular bone mineral density tests. For patients eligible for Medicare, routine testing is allowed once every 2 years. The testing frequency can be increased to one year for patients who have rapidly progressing disease, those who are receiving or discontinuing medical therapy to restore bone mass, or have additional risk factors.
== END 2023-10-23 08:07 | disposition home or self-care (01) ==
LOC: HO.MAMMO 08:06
PROVIDERS: PCP Internal Medicine; Visit Provider Internal Medicine
DX: Z13.820 Encounter for screening for osteoporosis (principal); N95.9 Unspecified menopausal and perimenopausal disorder
CPT/HCPCS: 77080

== ENCOUNTER 2023-11-16 09:21 | Outpatient (AMB) | payer MEDICARE, SELFPAY ==
--- NOTE | 2023-11-16 09:28 | MHC.OFFVIS ---
Intake Vital Signs 11/16/23 09:30 Height 5 ft 2 in Weight 238 lb 8.642 oz BMI 43.6 BP 163/75 H Blood Pressure Location Lt brachial Position Sitting Pulse 51 Intake Visit Reasons: Abdominal pain Intake Note: Nany returns to in office follow up of abdominal pain. CC: Patient reports having lower abdominal pain and constipation. Denies other GI concerns today. [employer] [place] Required: No Accompanied by: Self / Same As Patient Allergies No Known Drug Allergies Adverse Reaction (Unknown, Verified 09/27/23 08:43) Unknown seasonal Allergy (Intermediate, Uncoded 09/27/23 08:43) Itchy Eyes HPI Abdominal pain HPI Details Assessment & Plan (1) GERD (gastroesophageal reflux disease): Code(s): K21.9 - Gastro-esophageal reflux disease without esophagitis Qualifiers: Esophagitis presence: esophagitis presence not specified Qualified Code(s): K21.9 - Gastro-esophageal reflux disease without esophagitis (2) Constipation by delayed colonic transit: Code(s): K59.01 - Slow transit constipation (3) Abdominal bloating: Code(s): R14.0 - Abdominal distension (gaseous) (4) Tubular adenoma of colon: Code(s): D12.6 - Benign neoplasm of colon, unspecified She continues on her omeprazole bid with good control of her GERD and the senna has helped with moving her bowels. She was having a lot of trouble with rectal leakage but this resolved by managing her constipation and having a complete bowel movement in the morning. At time she is satisfied with her GI regimen. Return office visit in 6 months and after the colonoscopy. COLONOSCOPY SCHEDULED FOR 01/08/2024 BIOPSY TODAY'S VISIT She continues on her omeprazole bid with good control of her GERD and the senna has helped with moving her bowels. She was having a lot of trouble with rectal leakage but this resolved by managing her constipation and having a complete bowel movement in the morning. At time she is satisfied with her GI regimen. [facility] Medical History Post herpetic neuralgia History of smoking B12 deficiency Candidal intertrigo Constipation by delayed colonic transit Obesity Hypovitaminosis D Voice hoarseness Pure hypercholesterolemia Small intestinal bacterial overgrowth History of Clostridioides difficile colitis Surgical History Hx of cataract surgery Hx of tubal ligation Hx of tonsillectomy Hx of colonoscopy Family History Father Lung cancer Mother Cardiovascular disease Sister Lymph node cancer Brother Colon cancer Brother Pacemaker Maternal Aunt Breast cancer Social History Household Members: None Housing: Apartment Alcohol intake: current Alcohol intake frequency: holidays/special occasions only Alcohol type: other Patient Tobacco Use Status: Former Tobacco user Tobacco use type: Cigarette e-Cigarette/Vaping Use: Never Used Second Hand Smoke Exposure: No service: No Current occupational status: retired Cognitive needs: No Hearing needs: No Vision needs: Yes Review of Systems Const Denies fatigue, Denies fever(s), Denies night sweats, Denies poor appetite and Denies weight loss ENT Reports Normal hearing present, Denies dental pain, Denies dysphagia, Denies hearing loss, Denies mouth pain, Denies odynophagia, Denies throat swelling, Denies tongue swelling and Reports other (Dentition adequate) Card Reports no additional complaints Resp Reports no additional complaints GI Details: Denies abdominal pain, Denies melena, Denies bloating, Denies hematochezia, Reports constipation, Denies GI cramping, Denies dysphagia, Denies excessive flatus, Denies early satiety, Reports heartburn, Denies diarrhea, Denies nausea, Denies odynophagia, Denies vomiting and Denies hematemesis Skin/Breast Denies pruritus, Denies lesions, Denies rash and Denies jaundice Neuro Reports Normal hearing present and Denies Abnormal speech present Endo Denies fatigue Aller/Immun Denies throat swelling and Denies tongue swelling Physical Exam Vital Signs: Last Vital Signs Pulse 51 11/16/23 09:30 BP 163/75 H 11/16/23 09:30 BMI result Body Mass Index 43.6 Const General: cooperative, no acute distress, well developed and well groomed Nutritional Appearance: well nourished and obese Orientation/consciousness: oriented to person, oriented to place and oriented to time Limitations: No language barrier HEENT Head: Yes normocephalic and Yes atraumatic Eyes General: appearance normal, both eyes and all related structures Pupils: Equal, round and reactive pupils present Neck Neck: Yes normal visual inspection and Yes no lymphadenopathy Thyroid: Thyroid normal Resp Effort & Inspection: normal respiratory effort and able to speak in complete sentences Auscultation: clear to auscultation bilaterally Cardio Rate: regular rate Rhythm: regular rhythm Heart sounds: Normal, physiologic split S2 sound present Peripheral pulses: radial pulses present and posterior tibial pulses present GI Inspection: No distended, Yes Abdominal panniculus present and Yes obesity Palpation (GI): Soft to palpation, nontender, no guarding, not rigid and No hepatosplenomegaly present Percussion: Yes normal to percussion Auscultation: normal bowel sounds Rectal Exam - Female: deferred Skin General skin exam: no rashes or lesions noted, turgor normal, skin not dry, no jaundice, No spider nevi and no striae Rashes: no rashes Nails: normal Neuro General: oriented to person, oriented to place and oriented to time Cranial nerves: Yes Equal, round and reactive pupils present and Yes Normal hearing present Speech: No Abnormal speech present Extrem General: Yes normal to inspection, No clubbing, No cyanosis and No edema Psych Appearance: grossly normal and well kempt Mental Status: mental status grossly normal Speech and movement: Normal speech and movement present Affect: normal affect Attitude: cooperative Thought process: Normal thought process present and not confabulating Thought content: Normal thought content present Insight: Fair insight present (Psych) Judgement: Fair judgement present (Psych) Assessment & Plan Assessment & Plan (1) Abdominal bloating: Code(s): R14.0 - Abdominal distension (gaseous) (2) GERD (gastroesophageal reflux disease): Code(s): K21.9 - Gastro-esophageal reflux disease without esophagitis Qualifiers: Esophagitis presence: esophagitis presence not specified Qualified Code(s): K21.9 - Gastro-esophageal reflux disease without esophagitis (3) Constipation: Code(s): K59.00 - Constipation, unspecified Plan She continues on her omeprazole bid with good control of her GERD and the senna has helped with moving her bowels. She was having a lot of trouble with rectal leakage but this resolved by managing her constipation and having a complete bowel movement in the morning. At time she is satisfied with her GI regimen. COLONOSCOPY SCHEDULED FOR 01/08/2024 BIOPSY Medications: New bisacodyl (Dulcolax (bisacodyl)) 10 mg (2 x 5 mg) PO BEDTIME 30 days 60 tabs 6RF K59.00 - Constipation, unspecified Discontinued semaglutide (weight loss) (Wegovy) administer weeks 1 through 4 of therapy Discontinued Reason: Insurance Denied 0.25 mg (0.5 mL) subcut QWEEK 28 days 2 mL 0RF E66.01 - Morbid (severe) obesity due to excess calories, Z68.41 - Body mass index [BMI] 40.0-44.9, adult sennosides (Senna Laxative) Discontinued Reason: Doctor's Order 17.2 mg (2 x 8.6 mg) PO BEDTIME 60 tabs 6RF K59.01 - Slow transit constipation Coding Level of Care Code Est Pt Level 3 (56376) Diagnoses Abdominal bloating R14.0 Gastroesophageal reflux disease, unspecified whether esophagitis present K21.9 Esophagitis presence: esophagitis presence not specified Constipation K59.00
[2023-11-16 09:30] VITALS: BP 163/75; PULSE 51; BMI 43.6
== END 2023-11-16 10:07 | disposition home or self-care (01) ==
PROVIDERS: PCP Internal Medicine; Visit Provider Nurse Practitioner
DX: R14.0 Abdominal distension (gaseous) (principal); K21.9 Gastro-esophageal reflux disease without esophagitis; K59.00 Constipation, unspecified
CPT/HCPCS: 99213

== ENCOUNTER → 2023-11-16 09:21 | Outpatient (BNVA) | payer MEDICARE, SELFPAY | PROVIDERS: PCP Internal Medicine; Visit Provider Nurse Practitioner | DX: K59.00 Constipation, unspecified (principal); R14.0 Abdominal distension (gaseous); K21.9 Gastro-esophageal reflux disease without esophagitis; Z79.899 Other long term (current) drug therapy | CPT/HCPCS: 99212 ==

== ENCOUNTER 2024-01-24 08:07 | Outpatient (AMB) | payer MEDICARE, SELFPAY ==
--- NOTE | 2024-01-24 08:08 | A.OFFPC_ITS ---
Vital Signs 01/24/24 08:09 Height 5 ft 2 in Weight 235 lb BMI 43.0 BP 152/70 H Blood Pressure Location Lt brachial Position Sitting Intake Visit Reasons: 4 Month F/U Intake Note: Patient here for a 4 month follow up, c/o cough Bending Frame Operator Required: No Accompanied by: Self / Same As Patient Allergies No Known Drug Allergies Adverse Reaction (Unknown, Verified 01/24/24 08:17) Unknown seasonal Allergy (Intermediate, Uncoded 01/24/24 08:17) Itchy Eyes Medication List - Last Reconciled 01/24/24 by Niyah Mercado MD aspirin 81 mg PO DAILY atorvastatin 10 mg PO DAILY bisacodyl (Dulcolax (bisacodyl)) 10 mg (2 x 5 mg) PO BEDTIME 30 days blood pressure test kit-large As directed cholecalciferol (vitamin D3) 50 mcg PO DAILY 90 days fluticasone propionate 50 mcg/actuation 1 spray intranasal DAILY 30 days furosemide (Lasix) 40 mg (2 x 20 mg) PO DAILY 90 days gabapentin 600 mg PO .every 6 hours 90 days losartan 50 mg PO DAILY 90 days omeprazole 20 mg PO BID 90 days sodium,potassium,mag sulfates 17.5-3.13-1.6 gram (Suprep Bowel Prep Kit) 480 mL orally; Tobacco use date assessed: 01/24/24 Fall risk assessment: No Falls in past year Last assessed Fall Risk: 01/24/24 Dental Screening Dental Screen Date: 01/24/24 Did you have a dental visit in the last 12 months?: Yes Did you have a dental problem in the last 6 months where you did not have access to dental care?: No Was dental information given to patient?: Patient has dentist HPI HPI Comments History of Present Illness Details This is an 83-year-old female with hypertension, mild major depression in remission, pure hypercholesterolemia, constipation and morbid obesity that comes today complaining of cough that started about a week ago along with some clear nasal congestion. Lipid panel will be ordered. Mammogram was done and it was normal. DEXA scan was done showing osteopenia and I will add calcium to her vitamin-D. No chest pain or shortness a breath. She is morbidly obese with a BMI of 43 and was advised to do diet and exercise to reach BMI goal less than 30. [facility] Medical History Post herpetic neuralgia History of smoking B12 deficiency Candidal intertrigo Constipation by delayed colonic transit Obesity Hypovitaminosis D Voice hoarseness Pure hypercholesterolemia Small intestinal bacterial overgrowth History of Clostridioides difficile colitis Surgical History Hx of cataract surgery Hx of tubal ligation Hx of tonsillectomy Hx of colonoscopy Family History Father Lung cancer Mother Cardiovascular disease Sister Lymph node cancer Brother Colon cancer Brother Pacemaker Maternal Aunt Breast cancer Social History Household Members: None Housing: Apartment Alcohol intake: current Alcohol intake frequency: holidays/special occasions only Alcohol type: other Patient Tobacco Use Status: Former Tobacco user Tobacco use type: Cigarette e-Cigarette/Vaping Use: Never Used Second Hand Smoke Exposure: No service: No Current occupational status: retired Cognitive needs: No Hearing needs: No Vision needs: Yes Questionnaire Thrive Questionnaire Date Thrive assessed: 09/27/23 BILLY-7 AMB Questionnaire BILLY-7 Date BILLY - 7 assessed: 09/27/23 Source: Developed by Drs. Jose Fairchild, Ruth Ochoa, Lexx Ponce and colleagues, with an educational kristie from [employer]. Review of Systems Const All systems reviewed & are unremarkable except as noted in HPI and below Eyes Reports no additional complaints, Denies change in vision and Denies other visual disturbances Card Denies chest pain at rest, Denies chest pain with activity, Denies edema, Denies irregular heart rhythm, Denies claudication, Denies dyspnea, Denies dyspnea on exertion, Denies orthopnea, Denies paroxysmal nocturnal dyspnea and Denies slow heart rate Resp Denies cough, Denies dyspnea and Denies dyspnea on exertion GI Denies abdominal pain, Denies change in bowel habits, Denies excessive flatus, Denies nausea and Denies vomiting Denies urinary incontinence, Denies urinary hesitancy and Denies urinary urgency Physical exam (Primary Care) Vital Signs: Last Vital Signs BP 152/70 H 01/24/24 08:09 BMI result Body Mass Index 43.0 Tobacco/Smoking Status: Tobacco use Status Tobacco use date assessed 01/24/24 01/24/24 08:15 Patient Tobacco Use Status Former Tobacco user 01/24/24 08:15 Tobacco use type Cigarette 01/24/24 08:15 e-Cigarette/Vaping Use Never Used 01/24/24 08:15 Thrive Assessment: Date of Thrive Assessment Date Thrive assessed 09/27/23 01/24/24 08:15 Resp Effort & Inspection: normal respiratory effort Auscultation: clear to auscultation bilaterally Cardio Jugular venous distension: no JVD Rate: regular rate Rhythm: regular rhythm Heart sounds: S1 normal heart sound present and S2 normal heart sound present Extrem General: Yes full ROM Assessment and Plan Assessment & Plan (1) Cough: Code(s): R05.9 - Cough, unspecified Plan: X-ray ordered. Start doxycycline. Start loratadine as needed for allergies. (2) Constipation: Code(s): K59.00 - Constipation, unspecified Plan: Continue bisacodyl as needed. (3) Mild major depression: Code(s): F32.0 - Major depressive disorder, single episode, mild Plan: In remission. (4) Morbid obesity with BMI of 40.0-44.9, adult: Code(s): E66.01 - Morbid (severe) obesity due to excess calories; Z68.41 - Body mass index [BMI] 40.0-44.9, adult Plan: Advised to start diet and exercise. BMI goal is less than 30. (5) Essential hypertension: Code(s): I10 - Essential (primary) hypertension Plan: Continue losartan. Do home blood pressure monitoring. Blood pressure goal is equal or less than 130/80. (6) Pure hypercholesterolemia: Code(s): E78.00 - Pure hypercholesterolemia, unspecified Plan: Continue statins. Repeat lipid panel. (7) Osteopenia: Code(s): M85.80 - Other specified disorders of bone density and structure, unspecified site Qualifiers: Osteopenia location: multiple sites Qualified Code(s): M85.89 - Other specified disorders of bone density and structure, multiple sites Plan: Continue vitamin-D. Start calcium. Repeat DEXA scan 2025. Orders: Orders Lipid Panel Today E78.5 - Hyperlipidemia, unspecified Comprehensive [place]. Panel Fast Today K59.00 - Constipation, unspecified XR chest 2V Today R05.9 - Cough, unspecified Medications: New calcium carbonate 600 mg PO BID 90 days 180 tabs 1RF doxycycline hyclate 100 mg PO BID 5 days 10 tabs 0RF loratadine (Allergy Relief (loratadine)) 10 mg PO DAILY 90 days PRN 90 tabs 0RF allergic symptoms Coding Level of Care Code Est Pt Level 4 (73147) Diagnoses Cough R05.9 Constipation K59.00 Mild major depression F32.0 Morbid obesity with BMI of 40.0-44.9, adult E66.01; Z68.41 Essential hypertension I10 Pure hypercholesterolemia E78.00 Osteopenia of multiple sites M85.89 Osteopenia location: multiple sites Time Spent (min) 23
[2024-01-24 08:09] VITALS: BP 152/70; BMI 43.0
== END 2024-01-24 08:32 | disposition home or self-care (01) ==
PROVIDERS: PCP Internal Medicine; Visit Provider Internal Medicine
DX: R05.9 Cough, unspecified (principal); F32.0 Major depressive disorder, single episode, mild; E66.01 Morbid (severe) obesity due to excess calories; Z68.41 Body mass index [BMI] 40.0-44.9, adult; K59.00 Constipation, unspecified; I10 Essential (primary) hypertension; E78.00 Pure hypercholesterolemia, unspecified; M85.89 Other specified disorders of bone density and structure, multiple sites
CPT/HCPCS: 99214

== ENCOUNTER 2024-01-26 07:27 | Outpatient (REF) | payer MEDICARE, SELFPAY ==
--- NOTE | ~2024-01-26 | XR_ITS ---
EXAMINATION: XR CHEST CLINICAL INFORMATION: Cough, unspecified COMPARISON: Chest 07/14/2013 TECHNIQUE: 2 views of the chest were obtained. FINDINGS: No significant abnormality is noted involving the heart, lungs, mediastinum or soft tissues. No significant change in mild anterior wedge compression of a lower thoracic vertebral body. XR/XR chest 2V IMPRESSION: No acute cardiopulmonary disease.
[2024-01-26 08:32] LABS: Alanine Aminotransferase 14 U/L (0-31); Albumin Level 3.7 g/dL (3.5-5.0); Alkaline Phosphatase 96 U/L (39-117); Anion Gap 11 (12-20); Aspartate Amino Transferase 20 U/L (5-31); Bilirubin Total 0.7 mg/dL (0.0-1.0); Blood Urea Nitrogen 17 mg/dL (9-16); Calcium 8.8 mg/dL (8.4-10.2); Carbon Dioxide 28 mmol/L (22-29); Chloride 107 mmol/L (96-108); Cholesterol 154 mg/dL (<200); Estimated Glomerular Filt Rate 53; Glucose Fasting 92 mg/dL (60-99); HDL Cholesterol 45 mg/dL (>40); LDL Cholesterol Calculated 84 mg/dL (<100); Potassium 4.1 mmol/L (3.3-5.1); Sodium 142 mmol/L (135-145); Total Protein 7.1 g/dL (6.5-8.0); Triglycerides 128 mg/dL (<150)
== END 2024-01-26 07:28 | disposition home or self-care (01) ==
LOC: HO.LAB 07:27
PROVIDERS: PCP Internal Medicine; Visit Provider Internal Medicine
DX: E78.5 Hyperlipidemia, unspecified (principal); K59.00 Constipation, unspecified; R05.9 Cough, unspecified
CPT/HCPCS: 36415; 71046; 80053; 80061

== ENCOUNTER 2024-02-06 08:02 | Day surgery (SDC) | payer MEDICARE, SELFPAY ==
--- NOTE | 2024-02-04 13:48 | HO.ANESPROP2 ---
Documented by User: Jenelle Johnston NP 02/04/24 13:54 HPI - Anesthesia Eval Consult details Narrative: 83yo F for Colonoscopy PMFSH Active Problems Active Problems: All Active Problems Osteopenia (Acute) Cough (Acute) Constipation (Acute) Mild major depression (Acute) Encounter for Medicare annual wellness exam (Acute) Morbid obesity with BMI of 40.0-44.9, adult (Acute) Family history of colon cancer (Acute) Tubular adenoma of colon (Acute) Left knee pain (Acute) Right hand pain (Acute) Essential hypertension (Acute) Gabriela albicans infection (Acute) Post herpetic neuralgia (Acute) Shingles (Acute) Abdominal bloating (Acute) Status post cardiac catheterization (Acute) History of smoking (Acute) Abnormal stress test (Acute) CHRISTINE (dyspnea on exertion) (Acute) Leg edema, right (Acute) CHRISTINE (dyspnea on exertion) (Acute) B12 deficiency (Acute) Candidal intertrigo (Acute) Constipation by delayed colonic transit (Acute) Hoarse voice quality (Acute) Hypertension (Acute) RBBB (Acute) Obesity (Acute) Hypovitaminosis D (Acute) Voice hoarseness (Acute) Pure hypercholesterolemia (Acute) GERD (gastroesophageal reflux disease) (Acute) Past Medical History Medical History GERD (gastroesophageal reflux disease) Right bundle branch block HTN (hypertension) Post herpetic neuralgia History of smoking B12 deficiency Candidal intertrigo Constipation by delayed colonic transit Obesity Hypovitaminosis D Voice hoarseness Pure hypercholesterolemia Small intestinal bacterial overgrowth History of Clostridioides difficile colitis Family History Family History Father Lung cancer Mother Cardiovascular disease Sister Lymph node cancer Brother Colon cancer Brother Pacemaker Maternal Aunt Breast cancer Surgical History Surgical History Hx of cardiac cath Hx of cataract surgery Hx of tubal ligation Hx of tonsillectomy Hx of colonoscopy Social History Social History Household Members: None Housing: Apartment Alcohol intake: current Alcohol intake frequency: holidays/special occasions only Alcohol type: other Patient Tobacco Use Status: Former Tobacco user Tobacco use type: Cigarette e-Cigarette/Vaping Use: Never Used Second Hand Smoke Exposure: No Use of substances other than those prescribed or required for medical reasons: No Are you DNR?: Yes Advance Directives: No Advance Directives Information Provided: Yes service: No Current occupational status: retired Cognitive needs: No Hearing needs: No Vision needs: Yes Meds Allergies Allergy/AdvReac Type Severity Reaction Status Date / Time No Known Drug Allergies AdvReac Unknown Unknown Verified 02/06/24 08:10 seasonal Allergy Intermediate Itchy Eyes Uncoded 01/24/24 08:17 Exam Pertinent Lab Results Pertinent Lab Results: Laboratory Tests 01/12/22 01/26/24 05:57 07:46 WBC 7.4 Hgb 13.2 Hct 39.5 Plt Count 219 Sodium 142 Potassium 4.1 Chloride 107 Carbon Dioxide 28 BUN 17 H Creatinine 0.99 Assessment and Plan Assessment Anesthesia Assessment: Chart Reviewed Documented by User: Prisca Yousif MD 02/06/24 09:11 PMF Past Medical History Medical History GERD (gastroesophageal reflux disease) Right bundle branch block HTN (hypertension) Post herpetic neuralgia History of smoking B12 deficiency Candidal intertrigo Constipation by delayed colonic transit Obesity Hypovitaminosis D Voice hoarseness Pure hypercholesterolemia Small intestinal bacterial overgrowth History of Clostridioides difficile colitis Family History Family History Father Lung cancer Mother Cardiovascular disease Sister Lymph node cancer Brother Colon cancer Brother Pacemaker Maternal Aunt Breast cancer Family history of problems with anesthesia: No Surgical History Surgical History Hx of cardiac cath Hx of cataract surgery Hx of tubal ligation Hx of tonsillectomy Hx of colonoscopy History of Problems with Anesthesia: No Social History Social History Household Members: None Housing: Apartment Alcohol intake: current Alcohol intake frequency: holidays/special occasions only Alcohol type: other Patient Tobacco Use Status: Former Tobacco user Tobacco use type: Cigarette e-Cigarette/Vaping Use: Never Used Second Hand Smoke Exposure: No Use of substances other than those prescribed or required for medical reasons: No Are you DNR?: Yes Advance Directives: No Advance Directives Information Provided: Yes service: No Current occupational status: retired Cognitive needs: No Hearing needs: No Vision needs: Yes Meds Allergies Allergy/AdvReac Type Severity Reaction Status Date / Time No Known Drug Allergies AdvReac Unknown Unknown Verified 02/06/24 08:10 seasonal Allergy Intermediate Itchy Eyes Uncoded 01/24/24 08:17 Exam Airway Mallampati Class: II TM Dist: >3cm Neck ROM: Full Denture: Upper and Lower Heart: rrr Lungs: cta Assessment and Plan Assessment Anesthesia Assessment: Anesthesia Plan Discussed Final Anesthetic Review Family History of Problems with Anesthesia: No History of Problems with Anesthesia: No NPO: Yes ASA Class: III Final Preanesthetic Review: No Changes in Pt Med Stat, Meds/Allgs Chart Reviewed and Consent Obtained/Reviewed Patient Risk: Low Procedure Risk: Low Anesthetic Plan Anesthetic Plan: MAC: Disposition: Standard PACU
[2024-02-06 08:13] VITALS: BMI 40.3
[2024-02-06 08:19] VITALS: BP 185/92; PULSE 61; RESP 16; TEMP 36.5; O2SAT 97
--- NOTE | 2024-02-06 08:33 | MHC.SHP ---
Pre-Procedural Eval Section A - 24 Hr Update-Section A only Date of Service: 02/06/24 Section B - Complete if H&P > 30 days Chief Complaint: Benign neoplasm of colon,hx malignant neoplasm Details of Present Illness: brother--CRC Relevant Family History (Specify if Yes): Yes Relevant Social History: None Present Medications: see Short Stay Collaborative assessment Medical History: Significant History (Post herpetic neuralgia History of smoking B12 deficiency Candidal intertrigo Constipation by delayed colonic transit Obesity Hypovitaminosis D Voice hoarseness Pure hypercholesterolemia Small intestinal bacterial overgrowth History of Clostridioides difficile colitis) History of Previous Operations: Relevant previous surgery/procedure and date(s) ( Hx of cardiac cath Hx of cataract surgery Hx of tubal ligation Hx of tonsillectomy Hx of colonoscopy) Allergies: Allergies Allergy/AdvReac Type Severity Reaction Status Date / Time No Known Drug Allergies AdvReac Unknown Unknown Verified 02/06/24 08:10 seasonal Allergy Intermediate Itchy Eyes Uncoded 01/24/24 08:17 Review of Systems Sugical H&P ROS: Negative: Constitution, Cardiovascular, Respiratory, Neurological, Psychiatric, Hem-Onc, Allergic/Immunologic, Gastrointestinal, Genitourinary, Musculoskeletal, Integumentary, Endocrine and Eyes/Ears/Nose/Throat Exam Surgical H&P Exam: Normal: HEENT, Normal: Heart, Normal: Lungs, Normal: Extremities, Normal: Abdomen, Normal: Skin and Normal: Neurological Plan Diagnosis/Plan: Unchanged I have reviewed the history and physical and performed a pertinent physical examination on my patient. No changes have occurred unless specified. Time Spent With Patient Time: Total time managing care of this patient today ____ minutes.
[2024-02-06] MEDS: Lactated Ringers 1,000 ML 100 ML IVCONT (08:39)
--- NOTE | 2024-02-06 09:47 | HO.OPN-COLON ---
Colonoscopy Operative Note Operative Note Date of Service: 02/06/24 Narrative: Operative Information Procedure Description: Colonoscopy Indication: hx of colon polyps Anesthesia: MAC COLONOSCOPY Instrument: Olympus variable stiffness pediatric scope 190L Colonoscopy Monitoring: Vital signs and clinical assessment, continuous EKG monitoring, Pulse oximetry, Carbon Dioxide monitoring and blood pressure monitoring were done throughout the procedure. Colon withdrawal time was 20 minutes. Procedure: The patient was placed in the left lateral decubitis position and pre-procedure medications were administered. After a digital rectal examination of the ano-rectum, the video colonoscope was inserted into the rectum and advanced through the colon to the cecum/TI. The colonoscope was slowly withdrawn in a retrograde panoramic fashion and the colon mucosa was carefully examined including a retroflexed view of the rectum. Findings and interventions are described below. Procedure Difficulty: easy Findings: Terminal Ileum-normal Cecum: laterally spreading granular polyp lesion about 12 mm, raised with eleview and then removed with hot nare with edges ablated with coagulation probe and 2 clips applied for closure of defect Ascending Colon: 3-4 mm sessile polyp removed with cold forceps Transverse Colon -normal Descending Colon:normal Sigmoid Colon: severe diverticulosis with luminal narrowing Rectum: Retroflexion with small internal hemorrhoids seen, grade I Anorectum - normal Intervention: eleview injection, hot snare and cold bx forceps Colon preparation: [place] Bowel Preparation Scale Right colon; 2 Transverse colon: 2 Left colon; 2 (0 = Unprepared colon segment with mucosa not seen due to solid stool that cannot be cleared. 1 = Portion of mucosa of the colon segment seen, but other areas of the colon segment not well seen due to staining, residual stool and/or opaque liquid. 2 = Minor amount of residual staining, small fragments of stool and/or opaque liquid, but mucosa of colon segment seen well. 3 = Entire mucosa of colon segment seen well with no residual staining, small fragments of stool or opaque liquid) Impression and Post Procedure Diagnosis: diverticulosis colon polyps internal hemorrhoids Plan: High fiber diet leaflet Avoid straining at stool, epsom salts and sitz bath, anusol supps or cream Repeat Colonoscopy in 2-3 years due to polyps if health allows and patient wishes to proceed or earlier if clinically indicated Above findings were reviewed with the patient and relevant handouts were provided if indicated.
[2024-02-06 09:52] VITALS: BP 135/67; PULSE 51; RESP 16; TEMP 36.2; O2SAT 95
[2024-02-06 10:07] VITALS: BP 135/67; PULSE 51; RESP 16; TEMP 36.1; O2SAT 95
== END 2024-02-06 10:53 | disposition home or self-care (01) ==
PROVIDERS: PCP Internal Medicine; Visit Provider Internal Medicine Gastroenterology
PROC: 0DJD8ZZ Inspection of Lower Intestinal Tract, Via Natural or Artificial Opening Endoscopic (ICD-10-PCS; CPT 45378; principal; 2024-02-06 09:10)
DX: Z12.11 Encounter for screening for malignant neoplasm of colon (principal); K51.40 Inflammatory polyps of colon without complications; D12.2 Benign neoplasm of ascending colon; K57.30 Diverticulosis of large intestine without perforation or abscess without bleeding; K64.0 First degree hemorrhoids; Z86.010 Personal history of colon polyps; Z80.0 Family history of malignant neoplasm of digestive organs; K21.9 Gastro-esophageal reflux disease without esophagitis; Z79.899 Other long term (current) drug therapy
CPT/HCPCS: 45385; 45380; 45381; 88305; J2704

== ENCOUNTER → 2024-02-06 08:02 | Outpatient (BNV) | payer MEDICARE, SELFPAY | PROVIDERS: PCP Internal Medicine; Visit Provider Internal Medicine Gastroenterology | DX: Z12.11 Encounter for screening for malignant neoplasm of colon (principal); Z86.010 Personal history of colon polyps; K63.5 Polyp of colon; D12.2 Benign neoplasm of ascending colon; K57.30 Diverticulosis of large intestine without perforation or abscess without bleeding; K64.0 First degree hemorrhoids | CPT/HCPCS: 45380; 45381; 45385 ==

== ENCOUNTER 2024-02-20 08:51 | Outpatient (AMB) | payer MEDICARE, SELFPAY ==
[2024-02-20 08:54] VITALS: BP 122/76; PULSE 51; BMI 40.3
--- NOTE | 2024-02-20 08:54 | A.OFFVIS_ITS ---
Vital Signs 02/20/24 08:54 Height 5 ft 4 in Weight 235 lb 0.204 oz BMI 40.3 BP 122/76 Blood Pressure Location Lt brachial Position Sitting Pulse 51 Intake Visit Reasons: s/p colon Cano 02/05 Intake Note: Cece presents to in office visit today in follow up s/p colonoscopy. CC: Patient reports having abdominal cramps sometimes before a BM. Denies other GI symptoms. 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: No Accompanied by: Self / Same As Patient Allergies No Known Drug Allergies Adverse Reaction (Unknown, Verified 02/20/24 09:00) Unknown seasonal Allergy (Intermediate, Uncoded 01/24/24 08:17) Itchy Eyes HPI HPI s/p colon Cano 02/05: Details: Assessment & Plan (1) GERD (gastroesophageal reflux disease): Code(s): K21.9 - Gastro-esophageal reflux disease without esophagitis Qualifiers: Esophagitis presence: esophagitis presence not specified Qualified Code(s): K21.9 - Gastro-esophageal reflux disease without esophagitis (2) Constipation by delayed colonic transit: Code(s): K59.01 - Slow transit constipation (3) Abdominal bloating: Code(s): R14.0 - Abdominal distension (gaseous) (4) Tubular adenoma of colon: Code(s): D12.6 - Benign neoplasm of colon, unspecified She continues on her omeprazole bid with good control of her GERD and the senna has helped with moving her bowels. She was having a lot of trouble with rectal leakage. At time she is satisfied with her GI regimen. Return office visit in 6 months and after the colonoscopy. COLONOSCOPY 02/06/24 Findings: Terminal Ileum-normal Cecum: laterally spreading granular polyp lesion about 12 mm, raised with eleview and then removed with hot nare with edges ablated with coagulation probe and 2 clips applied for closure of defect Ascending Colon: 3-4 mm sessile polyp removed with cold forceps Transverse Colon -normal Descending Colon:normal Sigmoid Colon: severe diverticulosis with luminal narrowing Rectum: Retroflexion with small internal hemorrhoids seen, grade I Anorectum - normal Intervention: eleview injection, hot snare and cold bx forceps Impression and Post Procedure Diagnosis: diverticulosis colon polyps internal hemorrhoids Plan: High fiber diet leaflet Avoid straining at stool, epsom salts and sitz bath, anusol supps or cream Repeat Colonoscopy in 2-3 years due to polyps if health allows and patient wishes to proceed or earlier if clinically indicated BIOPSY Received: 02/06/24 Diagnosis A. Cecum, polypectomy: Inflammatory polyp. B. Colon, ascending, polypectomy: Fragments of tubular adenoma; negative for high-grade dysplasia or carcinoma. TODAY'S VISIT She is agreeable to consideration of a 2 year repeat depending on her health status. The procedure was well tolerated. The results were explained and the patient is agreeable to the follow-up interval as stated. The bowel pattern has returned to normal. Education was provided to tell any 1st degree relatives about their findings to be sure that they are screened by age 45. Educated that they will be put on a recall list when it is time for their repeat scope but should they move out of state or away from the hospital they will need to remember along with their primary to repeat the procedure in a timely fashion to avoid any adverse complications. She continues on her omeprazole bid with good control of her GERD and the senna has helped with moving her bowels. Her Shingles pain is less pronounced now, she feels this is just an improvement over time. She has tried a Hemp cream with some relief. [facility] Medical History GERD (gastroesophageal reflux disease) Right bundle branch block HTN (hypertension) Post herpetic neuralgia History of smoking B12 deficiency Candidal intertrigo Constipation by delayed colonic transit Obesity Hypovitaminosis D Voice hoarseness Pure hypercholesterolemia Small intestinal bacterial overgrowth History of Clostridioides difficile colitis Surgical History Hx of cardiac cath Hx of cataract surgery Hx of tubal ligation Hx of tonsillectomy Hx of colonoscopy Family History Father Lung cancer Mother Cardiovascular disease Sister Lymph node cancer Brother Colon cancer Brother Pacemaker Maternal Aunt Breast cancer Social History Household Members: None Housing: Apartment Alcohol intake: current Alcohol intake frequency: holidays/special occasions only Alcohol type: other Patient Tobacco Use Status: Former Tobacco user Tobacco use type: Cigarette e-Cigarette/Vaping Use: Never Used Second Hand Smoke Exposure: No service: No Current occupational status: retired Cognitive needs: No Hearing needs: No Vision needs: Yes Review of Systems Const Denies fatigue, Denies fever(s), Denies night sweats, Denies poor appetite and Denies weight loss ENT Reports Normal hearing present, Denies dental pain, Denies dysphagia, Denies hearing loss, Denies mouth pain, Denies odynophagia, Denies throat swelling, Denies tongue swelling and Reports other (Dentition adequate) Card Reports no additional complaints Resp Reports no additional complaints GI Details: Denies abdominal pain, Denies melena, Denies bloating, Denies hematochezia, Reports constipation, Denies GI cramping, Denies dysphagia, Denies excessive flatus, Denies early satiety, Reports heartburn, Denies diarrhea, Denies nausea, Denies odynophagia, Denies vomiting and Denies hematemesis Skin/Breast Denies pruritus, Denies lesions, Denies rash and Denies jaundice Neuro Reports Normal hearing present and Denies Abnormal speech present Endo Denies fatigue Aller/Immun Denies throat swelling and Denies tongue swelling Physical Exam Vital Signs: Last Vital Signs Pulse 51 02/20/24 08:54 BP 122/76 02/20/24 08:54 BMI result Body Mass Index 40.3 Const General: cooperative, no acute distress, well developed and well groomed Nutritional Appearance: well nourished and obese Orientation/consciousness: oriented to person, oriented to place and oriented to time Limitations: No language barrier HEENT Head: Yes normocephalic and Yes atraumatic Eyes General: appearance normal, both eyes and all related structures Pupils: Equal, round and reactive pupils present Neck Neck: Yes normal visual inspection and Yes no lymphadenopathy Thyroid: Thyroid normal Resp Effort & Inspection: normal respiratory effort and able to speak in complete sentences Auscultation: clear to auscultation bilaterally Cardio Rate: regular rate Rhythm: regular rhythm Heart sounds: Normal, physiologic split S2 sound present Peripheral pulses: radial pulses present and posterior tibial pulses present GI Inspection: No distended, Yes Abdominal panniculus present and Yes obesity Palpation (GI): Soft to palpation, nontender, no guarding, not rigid and No hepatosplenomegaly present Percussion: Yes normal to percussion Auscultation: normal bowel sounds Rectal Exam - Female: deferred Skin General skin exam: no rashes or lesions noted, turgor normal, skin not dry, no jaundice, No spider nevi and no striae Rashes: no rashes Nails: normal Neuro General: oriented to person, oriented to place and oriented to time Cranial nerves: Yes Equal, round and reactive pupils present and Yes Normal hearing present Speech: No Abnormal speech present Extrem General: Yes normal to inspection, No clubbing, No cyanosis and No edema Psych Appearance: grossly normal and well kempt Mental Status: mental status grossly normal Speech and movement: Normal speech and movement present Affect: normal affect Attitude: cooperative Thought process: Normal thought process present and not confabulating Thought content: Normal thought content present Insight: Fair insight present (Psych) Judgement: Fair judgement present (Psych) Results Reviewed Results Reviewed: COLONOSCOPY 02/06/24 Findings: Terminal Ileum-normal Cecum: laterally spreading granular polyp lesion about 12 mm, raised with eleview and then removed with hot nare with edges ablated with coagulation probe and 2 clips applied for closure of defect Ascending Colon: 3-4 mm sessile polyp removed with cold forceps Transverse Colon -normal Descending Colon:normal Sigmoid Colon: severe diverticulosis with luminal narrowing Rectum: Retroflexion with small internal hemorrhoids seen, grade I Anorectum - normal Intervention: eleview injection, hot snare and cold bx forceps Impression and Post Procedure Diagnosis: diverticulosis colon polyps internal hemorrhoids Plan: High fiber diet leaflet Avoid straining at stool, epsom salts and sitz bath, anusol supps or cream Repeat Colonoscopy in 2-3 years due to polyps if health allows and patient wishes to proceed or earlier if clinically indicated BIOPSY Received: 02/06/24 Diagnosis A. Cecum, polypectomy: Inflammatory polyp. B. Colon, ascending, polypectomy: Fragments of tubular adenoma; negative for high-grade dysplasia or carcinoma. Assessment & Plan Assessment & Plan (1) Tubular adenoma of colon: Comment: 02/2024 scope= 1 TA repeat in 2-3 years depending on health status Code(s): D12.6 - Benign neoplasm of colon, unspecified Category: Medical (2) Family history of colon cancer: Comment: brother Code(s): Z80.0 - Family history of malignant neoplasm of digestive organs Category: Medical (3) GERD (gastroesophageal reflux disease): Code(s): K21.9 - Gastro-esophageal reflux disease without esophagitis Category: Medical Qualifiers: Esophagitis presence: esophagitis presence not specified Qualified Code(s): K21.9 - Gastro-esophageal reflux disease without esophagitis (4) Constipation by delayed colonic transit: Code(s): K59.01 - Slow transit constipation Category: Medical Plan She is agreeable to consideration of a 2 year repeat depending on her health status. The procedure was well tolerated. The results were explained and the patient is agreeable to the follow-up interval as stated. The bowel pattern has returned to normal. Education was provided to tell any 1st degree relatives about their findings to be sure that they are screened by age 45. Educated that they will be put on a recall list when it is time for their repeat scope but should they move out of state or away from the hospital they will need to remember along with their primary to repeat the procedure in a timely fashion to avoid any adverse complications. She continues on her omeprazole bid with good control of her GERD and the senna has helped with moving her bowels. Her Shingles pain is less pronounced now, she feels this is just an improvement over time. She has tried a Hemp cream with some relief. Coding Level of Care Code Est Pt Level 3 (06509) Diagnoses Tubular adenoma of colon D12.6 Family history of colon cancer Z80.0 Gastroesophageal reflux disease, unspecified whether esophagitis present K21.9 Esophagitis presence: esophagitis presence not specified Constipation by delayed colonic transit K59.01
== END 2024-02-20 09:15 | disposition home or self-care (01) ==
PROVIDERS: PCP Internal Medicine; Visit Provider Nurse Practitioner
DX: D12.6 Benign neoplasm of colon, unspecified (principal); Z80.0 Family history of malignant neoplasm of digestive organs; K21.9 Gastro-esophageal reflux disease without esophagitis; K59.01 Slow transit constipation
CPT/HCPCS: 99213

== ENCOUNTER → 2024-02-20 08:51 | Outpatient (BNVA) | payer MEDICARE, SELFPAY | PROVIDERS: PCP Internal Medicine; Visit Provider Nurse Practitioner | DX: K21.9 Gastro-esophageal reflux disease without esophagitis (principal); K59.01 Slow transit constipation; D12.6 Benign neoplasm of colon, unspecified; Z80.0 Family history of malignant neoplasm of digestive organs | CPT/HCPCS: 99212 ==

== ENCOUNTER 2024-06-17 07:59 | Outpatient (AMB) | payer MEDICARE, SELFPAY ==
[2024-06-17 08:00] VITALS: BP 142/78; PULSE 69; O2SAT 97; BMI 39.3
--- NOTE | 2024-06-17 08:00 | MHC.PC.OV ---
Vital Signs 06/17/24 08:00 06/17/24 11:52 Height 5 ft 5 in Weight 236 lb BMI 39.3 BP 142/78 H 140/80 H Blood Pressure Location Lt brachial Lt brachial Position Sitting Sitting Pulse 69 Pulse Source Pulse Oximeter Pulse Oximetry (%) 97 Oxygen Delivery Method Room Air Intake Visit Reasons: bp, pimple since surgery Gallery Intern Required: No Accompanied by: Self / Same As Patient Allergies No Known Drug Allergies Adverse Reaction (Unknown, Verified 06/17/24 08:15) Unknown seasonal Allergy (Intermediate, Uncoded 06/17/24 08:15) Itchy Eyes Medication List - Last Reconciled 06/17/24 by Niyah Mercado MD aspirin 81 mg PO DAILY atorvastatin 10 mg PO DAILY bisacodyl 10 mg PO DAILY blood pressure test kit-large As directed calcium carbonate 600 mg PO BID 90 days cholecalciferol (vitamin D3) 50 mcg PO DAILY 90 days fluticasone propionate 50 mcg/actuation 1 spray intranasal DAILY 30 days furosemide (Lasix) 40 mg (2 x 20 mg) PO DAILY 90 days gabapentin 600 mg PO .every 6 hours 90 days loratadine (Allergy Relief (loratadine)) 10 mg PO DAILY PRN 90 days losartan 50 mg PO DAILY 90 days omeprazole 20 mg PO BID 90 days Tobacco use date assessed: 01/24/24 Fall risk assessment: No Falls in past year Last assessed Fall Risk: 06/17/24 Dental Screening Dental Screen Date: 01/24/24 HPI HPI Comments History of Present Illness Details This is an 84-year-old female with hypertension, constipation, mild major depression and post herpetic neuralgia that comes today for follow-up on her conditions. Blood pressure borderline. Constipation still present and I will start her on lactulose as needed. She does have some very mild depression but declines any medication or counseling. Still has neuropathic pain secondary to zoster. I will start her on Lyrica to see if relieves the pain more than the gabapentin. She denies any chest pain or shortness on breath. [facility] Medical History (Updated 06/17/24 @ 11:56 by Niyah Mercado MD) GERD (gastroesophageal reflux disease) Right bundle branch block HTN (hypertension) Post herpetic neuralgia History of smoking B12 deficiency Candidal intertrigo Constipation by delayed colonic transit Obesity Hypovitaminosis D Voice hoarseness Pure hypercholesterolemia Small intestinal bacterial overgrowth History of Clostridioides difficile colitis Surgical History Hx of cardiac cath Hx of cataract surgery Hx of tubal ligation Hx of tonsillectomy Hx of colonoscopy Family History Father Lung cancer Mother Cardiovascular disease Sister Lymph node cancer Brother Colon cancer Brother Pacemaker Maternal Aunt Breast cancer Social History Household Members: None Housing: Apartment Alcohol intake: current Alcohol intake frequency: holidays/special occasions only Alcohol type: other Patient Tobacco Use Status: Former Tobacco user Tobacco use type: Cigarette e-Cigarette/Vaping Use: Never Used Second Hand Smoke Exposure: No service: No Current occupational status: retired Cognitive needs: No Hearing needs: No Vision needs: Yes Questionnaire PHQ-9 Over the last 2 weeks, how often have you been bothered by any of the following problems? 1. Little interest or pleasure in doing things: several days 2. Feeling down, depressed, or hopeless: several days 3. Trouble falling or staying asleep, or sleeping too much: not at all 4. Feeling tired or having little energy: several days 5. Poor appetite or overeating: not at all 6. Feeling bad about yourself - or that you are a failure or have let yourself or your family down: several days 7. Trouble concentrating on things, such as reading the newspaper or watching television: several days 8. Moving or speaking so slowly that other people could have noticed. Or the opposite - being so fidgety or restless that you have been moving around a lot more than usual: not at all 9. Thoughts that you would be better off or of hurting yourself in some way: not at all Total score: 5 Depression Screening Interpretation: Positive Depression Screening Follow-up: Existing condition, Follow-up Visit Requested and Declines treatment Depression Screening Done: Yes 54922 - PHQ-9 Billing: Yes Source: Developed by Drs. Jose Fairchild, Ruth Ochoa, Lexx Ponce and colleagues, with an educational kristie from [employer] Thrive Questionnaire Date Thrive assessed: 09/27/23 Are you currently unemployed and looking for a job?: Yes AUDIT C Alcohol Use Questionnaire (AUDIT-C) 1. How often do you have a drink containing alcohol?: Monthly or less 2. How many drinks containing alcohol do you have on a typical day when you are drinking?: 1 or 2 3. How often do you have six or more drinks on one occasion?: Never Total Score: 1 Score Reviewed/Action Taken: No BILLY-7 AMB Questionnaire BILLY-7 Date BILLY - 7 assessed: 09/27/23 Source: Developed by Drs. Jose Fairchild, Ruth Ochoa, Lexx Ponce and colleagues, with an educational kristie from [employer] Review of Systems Const All systems reviewed & are unremarkable except as noted in HPI and below Card Denies chest pain at rest, Denies chest pain with activity, Denies edema, Denies irregular heart rhythm, Denies claudication, Denies dyspnea, Denies dyspnea on exertion, Denies orthopnea, Denies paroxysmal nocturnal dyspnea and Denies slow heart rate Resp Denies cough, Denies dyspnea and Denies dyspnea on exertion GI Denies abdominal pain, Denies change in bowel habits, Reports constipation, Denies excessive flatus, Denies nausea and Denies vomiting Denies urinary incontinence, Denies urinary hesitancy and Denies urinary urgency Musc Denies abnormal gait, Denies atrophy, Denies deformity and Denies limited range of motion Skin/Breast Denies bleeding lesions, Denies changing lesions and Denies rash Neuro Denies abnormal gait, Denies behavioral changes and Denies lack of coordination Psych Denies behavioral changes Physical exam (Primary Care) Vital Signs: Last Vital Signs Pulse 69 06/17/24 08:00 BP 142/78 H 06/17/24 08:00 Pulse Ox 97 06/17/24 08:00 Oxygen Delivery Method Room Air 06/17/24 08:00 BMI result Body Mass Index 39.3 BMI Assessment/Plan discussion: High BMI High, discussed plan: lifestyle, weight reduction, dietary and physical activity Tobacco/Smoking Status: Tobacco use Status Tobacco use date assessed 01/24/24 06/17/24 08:02 Patient Tobacco Use Status Former Tobacco user 06/17/24 08:02 Tobacco use type Cigarette 06/17/24 08:02 e-Cigarette/Vaping Use Never Used 06/17/24 08:02 PHQ-9: PHQ-9 Score PHQ-9: Total score 5 06/17/24 08:48 Depression Screening Interpretation: Positive Depression Screening Follow-up: Existing condition, Follow-up Visit Requested and Declines treatment Thrive Assessment: Date of Thrive Assessment Date Thrive assessed 09/27/23 06/17/24 08:02 Resp Effort & Inspection: normal respiratory effort Auscultation: clear to auscultation bilaterally Cardio Jugular venous distension: no JVD Rate: regular rate Rhythm: regular rhythm Heart sounds: S1 normal heart sound present and S2 normal heart sound present Extrem General: Yes full ROM Coding Level of Care Code Est Pt Level 4 (00970) Complex EM visit Add On G2211 Diagnoses Chronic idiopathic constipation K59.04 Constipation type: chronic idiopathic constipation Mild major depression F32.0 Essential hypertension I10 Post herpetic neuralgia B02.29 Time Spent (min) 25 Assessment & Plan Assessment & Plan (1) Constipation: Code(s): K59.00 - Constipation, unspecified Category: Medical Qualifiers: Constipation type: chronic idiopathic constipation Qualified Code(s): K59.04 - Chronic idiopathic constipation Plan: Start lactulose as needed. (2) Mild major depression: Code(s): F32.0 - Major depressive disorder, single episode, mild Category: Medical Plan: Declines treatment. (3) Essential hypertension: Code(s): I10 - Essential (primary) hypertension Category: Medical Plan: Continue losartan. Blood pressure goal is equal or less than 130/80. (4) Post herpetic neuralgia: Code(s): B02.29 - Other postherpetic nervous system involvement Category: Medical Plan: Discontinue gabapentin. Start Lyrica. Orders: Orders Vitamin D 25-OH Total 6 Months E55.9 - Vitamin D deficiency, unspecified Lipid Panel 6 Months E78.5 - Hyperlipidemia, unspecified Comprehensive Payne. Panel Fast 6 Months E66.01 - Morbid (severe) obesity due to excess calories, Z68.41 - Body mass index [BMI] 40.0-44.9, adult Medications: New pregabalin 50 mg PO BEDTIME 30 caps 0RF 30 days lactulose 10 grams (15 mL) PO BEDTIME PRN 300 mL 0RF constipation 30 days
[2024-06-17 11:52] VITALS: BP 140/80
== END 2024-06-17 08:35 | disposition home or self-care (01) ==
PROVIDERS: PCP Internal Medicine; Visit Provider Internal Medicine
DX: K59.04 Chronic idiopathic constipation (principal); F32.0 Major depressive disorder, single episode, mild; I10 Essential (primary) hypertension; B02.29 Other postherpetic nervous system involvement

== ENCOUNTER → 2024-06-17 07:59 | Outpatient (BNVA) | payer MEDICARE, SELFPAY | PROVIDERS: PCP Internal Medicine; Visit Provider Internal Medicine | DX: K59.04 Chronic idiopathic constipation (principal); F32.0 Major depressive disorder, single episode, mild; I10 Essential (primary) hypertension; B02.29 Other postherpetic nervous system involvement | CPT/HCPCS: 96127; 99212 ==

== ENCOUNTER 2024-09-25 08:06 | Outpatient (REF) | payer MEDICARE, SELFPAY | END 2024-09-25 08:07 | disposition home or self-care (01) | LOC: HO.MAMMO 08:06 | PROVIDERS: PCP Internal Medicine; Visit Provider Internal Medicine | DX: Z12.31 Encounter for screening mammogram for malignant neoplasm of breast (principal) | CPT/HCPCS: 77063; 77067 ==

== ENCOUNTER → 2024-09-25 08:15 | Outpatient (BNV) | payer MEDICARE, SELFPAY | PROVIDERS: PCP Internal Medicine; Visit Provider Internal Medicine | DX: Z12.31 Encounter for screening mammogram for malignant neoplasm of breast (principal) | CPT/HCPCS: 77063; 77067 ==

== ENCOUNTER 2024-12-16 09:43 | Outpatient (AMB) | payer MEDICARE, SELFPAY ==
--- NOTE | 2024-12-16 09:47 | A.OFFPC_ITS ---
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: No Accompanied by: Self / Same As Patient Allergies No Known Drug Allergies Adverse Reaction (Unknown, Verified 12/16/24 10:07) Unknown seasonal Allergy (Intermediate, Uncoded 12/16/24 10:07) Itchy Eyes Medication List - Last Reconciled 12/16/24 by Niyah Mercado MD aspirin 81 mg PO DAILY atorvastatin 10 mg PO DAILY bisacodyl 10 mg PO DAILY blood pressure test kit-large As directed calcium carbonate 600 mg PO BID 90 days cholecalciferol (vitamin D3) 50 mcg PO DAILY 90 days fluticasone propionate 50 mcg/actuation 1 spray intranasal DAILY 30 days furosemide (Lasix) 40 mg (2 x 20 mg) PO DAILY 90 days gabapentin 600 mg PO .every 6 hours 90 days lactulose 10 grams (15 mL) PO BEDTIME PRN 30 days loratadine (Allergy Relief (loratadine)) 10 mg PO DAILY PRN 90 days losartan 50 mg PO DAILY 90 days omeprazole 20 mg PO BID pregabalin 50 mg PO BEDTIME 30 days Tobacco use date assessed: 12/16/24 Fall risk assessment: No Falls in past year Last assessed Fall Risk: 12/16/24 Dental Screening Dental Screen Date: 12/16/24 Did you have a dental visit in the last 12 months?: Yes Did you have a dental problem in the last 6 months where you did not have access to dental care?: No Was dental information given to patient?: Patient has dentist HPI HPI Comments History of Present Illness Details The patient is an 84-year-old female presenting for a wellness visit with a particular interest in evaluating her cardiac health and ongoing management of chronic conditions. She reports concern about her heart health, influenced by the recent of her brother, yet denies active chest pain. Her blood pressure was previously adequate at 132/80 mmHg. Her medical management includes losartan for hypertension, atorvastatin for hyperlipidemia, and uses gabapentin for postherpetic neuralgia, replacing an initially intended Lyrica regimen. Additionally, calcium with vitamin D is supplemented for her osteopenia, identified in her last bone density. She has no known allergies or signs of depression and maintains routine health screenings and vaccinations. REPLACED BY [facility] Medical History (Updated 12/16/24 @ 12:23 by Niyah Mercado MD) Mild major depression Morbid obesity with BMI of 40.0-44.9, adult GERD (gastroesophageal reflux disease) Right bundle branch block HTN (hypertension) Post herpetic neuralgia History of smoking B12 deficiency Candidal intertrigo Constipation by delayed colonic transit Obesity Hypovitaminosis D Voice hoarseness Pure hypercholesterolemia Small intestinal bacterial overgrowth History of Clostridioides difficile colitis Surgical History Hx of cardiac cath Hx of cataract surgery Hx of tubal ligation Hx of tonsillectomy Hx of colonoscopy Family History Father Lung cancer Mother Cardiovascular disease Sister Lymph node cancer Brother Colon cancer Brother Pacemaker Maternal Aunt Breast cancer Social History Household Members: None Housing: Apartment Alcohol intake: current Alcohol intake frequency: holidays/special occasions only Alcohol type: other Patient Tobacco Use Status: Former Tobacco user Tobacco use type: Cigarette e-Cigarette/Vaping Use: Never Used Second Hand Smoke Exposure: No service: No Current occupational status: retired Cognitive needs: No Hearing needs: No Vision needs: Yes Questionnaire PHQ-9 Over the last 2 weeks, how often have you been bothered by any of the following problems? 1. Little interest or pleasure in doing things: not at all 2. Feeling down, depressed, or hopeless: not at all 3. Trouble falling or staying asleep, or sleeping too much: not at all 4. Feeling tired or having little energy: not at all 5. Poor appetite or overeating: not at all 6. Feeling bad about yourself - or that you are a failure or have let yourself or your family down: not at all 7. Trouble concentrating on things, such as reading the newspaper or watching television: not at all 8. Moving or speaking so slowly that other people could have noticed. Or the opposite - being so fidgety or restless that you have been moving around a lot more than usual: not at all 9. Thoughts that you would be better off or of hurting yourself in some way: not at all Total score: 0 Depression Screening Interpretation: Negative Depression Screening Done: Yes 71623 - PHQ-9 Billing: Yes Source: Developed by Drs. Jose Fairchild, Ruth Ochoa, Lexx Ponce and colleagues, with an educational kristie from [employer]. Thrive Questionnaire Date Thrive assessed: 12/16/24 I am a: Patient What is your living situation today?: I have a steady place to live Within the past 12 months, did the food you bought not last and you didn't have the money to get more?: Never true Within the past 12 months, did you worry whether your food would run out before you got money to buy more?: Never true Do you have trouble paying for medicines?: No Do you have trouble getting transportation to medical appointments?: No Do you have trouble paying your heating and electricity bill?: No Do you have trouble taking care of your child, family member or friend?: No Do you have trouble with day-to-day activities such as bathing, preparing meals, shopping, managing finances, etc.?: No Are you currently unemployed and looking for a job?: No Are you interested in more education?: No Please select the resources that you would like help with: None Currently or been in a relationship where the following occur: No concerns reported THRIVE Score: 0 AUDIT C Alcohol Use Questionnaire (AUDIT-C) 1. How often do you have a drink containing alcohol?: Monthly or less 2. How many drinks containing alcohol do you have on a typical day when you are drinking?: 1 or 2 3. How often do you have six or more drinks on one occasion?: Never Total Score: 1 Score Reviewed/Action Taken: No BILLY-7 AMB Questionnaire BILLY-7 Date BILLY - 7 assessed: 12/16/24 Feeling nervous, anxious, or on edge: 0 = Not at all Not being able to stop or control worryin = Not at all Worrying too much about different things: 0 = Not at all Trouble relaxin = Not at all Being so restless that it is hard to sit still: 0 = Not at all Becoming easily annoyed or irritable: 0 = Not at all Feeling afraid as if something awful might happen: 0 = Not at all Total BILLY-7 score (0-4 normal; 5-9 mild; 10-14 moderate; 15-21 severe): 0 Source: Developed by Drs. Jose Fairchild, Ruth Ochoa, Lexx Ponce and colleagues, with an educational kristie from [employer]. BILLY-7 Assessment Billing BILLY-7 Assessment Tool: BILLY-7 Assessment 52047 Review of Systems Const All systems reviewed & are unremarkable except as noted in HPI and below Card Denies chest pain at rest, Denies chest pain with activity, Denies edema, Denies irregular heart rhythm, Denies claudication, Denies dyspnea, Denies dyspnea on exertion, Denies orthopnea, Denies paroxysmal nocturnal dyspnea and Denies slow heart rate Resp Denies cough, Denies dyspnea and Denies dyspnea on exertion GI Denies abdominal pain, Denies change in bowel habits, Denies excessive flatus, Denies nausea and Denies vomiting Denies urinary incontinence, Denies urinary hesitancy and Denies urinary urgency Physical exam (Primary Care) Vital Signs: Last Vital Signs BP 132/80 12/16/24 09:52 BMI result Body Mass Index 38.9 BMI Assessment/Plan discussion: High BMI High, discussed plan: lifestyle, weight reduction, dietary and physical activity Tobacco/Smoking Status: Tobacco use Status Tobacco use date assessed 12/16/24 12/16/24 09:57 Patient Tobacco Use Status Former Tobacco user 12/16/24 09:50 Tobacco use type Cigarette 12/16/24 09:50 e-Cigarette/Vaping Use Never Used 12/16/24 09:50 PHQ-9: PHQ-9 Score PHQ-9: Total score 0 12/16/24 10:11 Depression Screening Interpretation: Negative Thrive Assessment: Date of Thrive Assessment Date Thrive assessed 12/16/24 12/16/24 09:50 Currently or been in a relationship where the following occur: No concerns reported Resp Effort & Inspection: normal respiratory effort Auscultation: clear to auscultation bilaterally Cardio Jugular venous distension: no JVD Rate: regular rate Rhythm: regular rhythm Heart sounds: S1 normal heart sound present and S2 normal heart sound present Extrem General: Yes full ROM Coding Level of Care Code Est Pt Level 4 (94122) Complex EM visit Add On G2211 Diagnoses Mild major depression F32.0 Osteopenia of multiple sites M85.89 Osteopenia location: multiple sites Hypertension I10 Post herpetic neuralgia B02.29 Gastroesophageal reflux disease, unspecified whether esophagitis present K21.9 Esophagitis presence: esophagitis presence not specified Pure hypercholesterolemia E78.00 Additional Codes BILLY-7 Assessment Billing - BILLY-7 Assessment Tool: BILLY-7 Assessment 56236 ([id number]) PHQ-9 - 86136 - PHQ-9 Billing: Yes ([id number]) Time Spent (min) 23 Assessment & Plan Assessment & Plan (1) Mild major depression: Code(s): F32.0 - Major depressive disorder, single episode, mild Category: Medical (2) Osteopenia: Code(s): M85.80 - Other specified disorders of bone density and structure, unspecified site Category: Medical Qualifiers: Osteopenia location: multiple sites Qualified Code(s): M85.89 - Other specified disorders of bone density and structure, multiple sites (3) Hypertension: Code(s): I10 - Essential (primary) hypertension Category: Medical (4) Post herpetic neuralgia: Code(s): B02.29 - Other postherpetic nervous system involvement Category: Medical (5) GERD (gastroesophageal reflux disease): Code(s): K21.9 - Gastro-esophageal reflux disease without esophagitis Category: Medical Qualifiers: Esophagitis presence: esophagitis presence not specified Qualified Code(s): K21.9 - Gastro-esophageal reflux disease without esophagitis (6) Pure hypercholesterolemia: Code(s): E78.00 - Pure hypercholesterolemia, unspecified Category: Medical Plan During this wellness visit, we focused on her concerns about her cardiac health and ongoing management of her chronic conditions. An EKG was advised to be done at the patient's convenience, given her stable blood pressure and absence of chest pain. Ongoing treatment for hypertension, hyperlipidemia, and constipation was reviewed, and existing medication regimens were continued. Her osteopenia is managed through calcium and vitamin D supplementation. Recent vaccinations are updated; Tdap and shingles vaccines were given. We discussed GI symptom relief by avoiding meals close to bedtime. Blood work will be ordered before the next visit to monitor her health on her return. Patient was informed and verbally consented to the use of an ambient scribe for clinic note documentation during this visit. I addressed the patient's concern regarding heart health, given her recent family history, and ensured she understood the stable nature of her current blood pressure readings. An EKG was suggested for further insight into her cardiac status. We reviewed her current medication regimen, ensuring efficacy in treating hypertension, hyperlipidemia, and postherpetic neuralgia, while acknowledging the insurance limitations faced with pregabalin. Osteopenia management was reinforced with the current calcium and vitamin D treatment plan. We covered the importance of maintaining up-to-date preventive measures, highlighting her recent vaccinations. Her GI symptoms were discussed, advising lifestyle modifications to alleviate heartburn. Consent and understanding were confirmed for these health strategies, including the need for updated bloodwork nearer to her next appointment. Orders: Orders ECG 12 lead EKG Today R07.9 - Chest pain, unspecified Medications: Discontinued pregabalin Discontinued Reason: Patient Completed Course 50 mg PO BEDTIME 30 days 30 caps 0RF Patient Instructions: - Schedule an EKG at your convenience for further heart health assessment. - Continue current medication regimen as prescribed. - Avoid eating close to bedtime to reduce heartburn symptoms. - Confirm upcoming bloodwork closer to your next appointment. -- Remember calcium and vitamin D supplementation for bone health. - Keep up with routine vaccinations and notify the office of any changes in health or medication.
[2024-12-16 09:52] VITALS: BP 132/80; BMI 38.9
== END 2024-12-16 10:17 | disposition home or self-care (01) ==
LOC: HO.HMCH 09:43
PROVIDERS: PCP Internal Medicine; Visit Provider Internal Medicine
DX: F32.0 Major depressive disorder, single episode, mild (principal); M85.89 Other specified disorders of bone density and structure, multiple sites; I10 Essential (primary) hypertension; B02.29 Other postherpetic nervous system involvement; K21.9 Gastro-esophageal reflux disease without esophagitis; E78.00 Pure hypercholesterolemia, unspecified

== ENCOUNTER → 2024-12-16 09:43 | Outpatient (REF) | payer MEDICARE, SELFPAY ==
--- NOTE | 2024-12-16 10:37 | ECG_ITS ---
Test Reason : CHEST PAIN Blood Pressure : */* mmHG Vent. Rate : 59 BPM Atrial Rate : 59 BPM P-R Int : 148 ms QRS Dur : 132 ms QT Int : 476 ms P-R-T Axes : 45 9 12 degrees QTcB Int : 471 ms Sinus bradycardia with Premature atrial complexes Right bundle branch block Lateral infarct (cited on or before 28-Oct-2018) Abnormal ECG When compared with ECG of 28-Oct-2018 09:45, Premature atrial complexes are now Present Referred By: Niyah Mercado Electronically Signed By: KODY CHERY MD
== END ==
LOC: HO.CARD 09:43
PROVIDERS: PCP Internal Medicine; Visit Provider Internal Medicine
DX: R07.9 Chest pain, unspecified (principal); F32.0 Major depressive disorder, single episode, mild; M85.89 Other specified disorders of bone density and structure, multiple sites; I10 Essential (primary) hypertension; B02.29 Other postherpetic nervous system involvement; K21.9 Gastro-esophageal reflux disease without esophagitis; E78.00 Pure hypercholesterolemia, unspecified
CPT/HCPCS: 93005; 96127; 99212

== ENCOUNTER → 2024-12-16 10:37 | Outpatient (BNV) | payer MEDICARE, SELFPAY | PROVIDERS: PCP Internal Medicine; Visit Provider Internal Medicine Cardiovascular Disease | DX: I49.1 Atrial premature depolarization (principal); I45.10 Unspecified right bundle-branch block; I25.2 Old myocardial infarction; R00.1 Bradycardia, unspecified | CPT/HCPCS: 93010 ==

== ENCOUNTER 2025-01-02 10:44 | Outpatient (AMB) | payer MEDICARE, SELFPAY ==
--- NOTE | 2025-01-02 10:54 | MHC.OFFVIS ---
Vital Signs 01/02/25 10:55 Height 5 ft 5 in Weight 230 lb 9.656 oz BMI 38.4 BP 138/86 Blood Pressure Location Lt brachial Position Sitting Pulse 68 Pulse Source Pulse Oximeter Pulse Oximetry (%) 96 Oxygen Delivery Method Room Air Intake Visit Reasons: Loose stools Intake Note: Pt presents to the office today for loose stools. Allergies No Known Drug Allergies Adverse Reaction (Unknown, Verified 01/02/25 10:58) Unknown seasonal Allergy (Intermediate, Uncoded 01/02/25 10:58) Itchy Eyes Medication List - Last Reconciled 01/02/25 by LOE Henson aspirin 81 mg PO DAILY atorvastatin 10 mg PO DAILY bisacodyl 10 mg PO DAILY blood pressure test kit-large As directed calcium carbonate 600 mg PO BID 90 days cholecalciferol (vitamin D3) 50 mcg PO DAILY 90 days fluticasone propionate 50 mcg/actuation 1 spray intranasal DAILY 30 days furosemide (Lasix) 40 mg (2 x 20 mg) PO DAILY 90 days gabapentin 600 mg PO .every 6 hours 90 days lactobacillus combo no.13 (Probiotic Pearls Complete) 1 cap PO DAILY lactulose 10 grams (15 mL) PO BEDTIME PRN 30 days loratadine (Allergy Relief (loratadine)) 10 mg PO DAILY PRN 90 days losartan 50 mg PO DAILY 90 days omeprazole 20 mg PO BID psyllium husk (Metamucil) 1 tbsp PO BID HPI HPI Loose stools: Details: Assessment & Plan (1) Tubular adenoma of colon: Comment: 02/2024 scope= 1 TA repeat in 2-3 years depending on health status Code(s): D12.6 - Benign neoplasm of colon, unspecified Category: Medical (2) Family history of colon cancer: Comment: brother Code(s): Z80.0 - Family history of malignant neoplasm of digestive organs Category: Medical (3) GERD (gastroesophageal reflux disease): Code(s): K21.9 - Gastro-esophageal reflux disease without esophagitis Category: Medical Qualifiers: Esophagitis presence: esophagitis presence not specified Qualified Code(s): K21.9 - Gastro-esophageal reflux disease without esophagitis (4) Constipation by delayed colonic transit: Code(s): K59.01 - Slow transit constipation Category: Medical Plan She is agreeable to consideration of a 2 year repeat depending on her health status. The procedure was well tolerated. The results were explained and the patient is agreeable to the follow-up interval as stated. The bowel pattern has returned to normal. Education was provided to tell any 1st degree relatives about their findings to be sure that they are screened by age 45. Educated that they will be put on a recall list when it is time for their repeat scope but should they move out of state or away from the hospital they will need to remember along with their primary to repeat the procedure in a timely fashion to avoid any adverse complications. She continues on her omeprazole bid with good control of her GERD and the senna has helped with moving her bowels. Her Shingles pain is less pronounced now, she feels this is just an improvement over time. She has tried a Hemp cream with some relief. TODAY'S VISIT She had a sudden onset of loose stools and fecal incontinence for a week a couple of weeks ago. She usually has CIC. At some point she was switched from senna to bisacodyl which she uses sparingly. She denies any N/V or fevers but she did feel low energy and lazy during this time. No big diet changes, lactose intolerant but uses almond milk. Now stools are mushy but she has to strain to pass them. She has a lot of gs as well. Likely viral insult. Start metamucil and a probiotic. She continues on her omeprazole 20 mg twice a day. ROV 4 weeks. [facility] Medical History (Updated 01/02/25 @ 11:38 by LEO Henson) History of smoking Chest pain Cough CHRISTINE (dyspnea on exertion) Shingles Hoarse voice quality Constipation by delayed colonic transit CHRISTINE (dyspnea on exertion) Gabriela albicans infection Candidal intertrigo Encounter for Medicare annual wellness exam Mild major depression Morbid obesity with BMI of 40.0-44.9, adult GERD (gastroesophageal reflux disease) Right bundle branch block HTN (hypertension) Post herpetic neuralgia B12 deficiency Obesity Hypovitaminosis D Voice hoarseness Pure hypercholesterolemia Small intestinal bacterial overgrowth History of Clostridioides difficile colitis Surgical History (Updated 01/02/25 @ 11:38 by LEO Henson) Status post cardiac catheterization Hx of cardiac cath Hx of cataract surgery Hx of tubal ligation Hx of tonsillectomy Hx of colonoscopy Family History Father Lung cancer Mother Cardiovascular disease Sister Lymph node cancer Brother Colon cancer Brother Pacemaker Maternal Aunt Breast cancer Social History Household Members: None Housing: Apartment Alcohol intake: current Alcohol intake frequency: holidays/special occasions only Alcohol type: other Patient Tobacco Use Status: Former Tobacco user Tobacco use type: Cigarette e-Cigarette/Vaping Use: Never Used Second Hand Smoke Exposure: No service: No Current occupational status: retired Cognitive needs: No Hearing needs: No Vision needs: Yes Review of Systems Const Denies fatigue, Denies fever(s), Reports lethargy, Reports malaise, Denies night sweats, Denies poor appetite and Denies weight loss Eyes Details: Glasses Reports requires corrective lenses ENT Reports Normal hearing present, Denies dental pain, Denies dysphagia, Denies hearing loss, Denies mouth pain, Denies odynophagia, Denies throat swelling, Denies tongue swelling and Reports other (Dentition adequate) Card Reports no additional complaints Resp Reports no additional complaints GI Details: Denies abdominal pain, Denies melena, Denies bloating, Denies hematochezia, Reports constipation, Denies GI cramping, Denies dysphagia, Denies excessive flatus, Denies early satiety, Reports heartburn, Denies diarrhea, Reports loose stools, Denies nausea, Denies odynophagia, Denies vomiting and Denies hematemesis Skin/Breast Denies pruritus, Denies lesions, Denies rash and Denies jaundice Neuro Reports Normal hearing present and Denies Abnormal speech present Endo Denies fatigue Aller/Immun Denies throat swelling and Denies tongue swelling Physical Exam Vital Signs: Last Vital Signs Pulse 68 01/02/25 10:55 BP 138/86 01/02/25 10:55 Pulse Ox 96 01/02/25 10:55 Oxygen Delivery Method Room Air 01/02/25 10:55 BMI result Body Mass Index 38.4 Const General: cooperative, no acute distress, well developed and well groomed Nutritional Appearance: well nourished and obese Orientation/consciousness: oriented to person, oriented to place and oriented to time Limitations: No language barrier HEENT Head: Yes normocephalic and Yes atraumatic Eyes General: appearance normal, both eyes and all related structures Pupils: Equal, round and reactive pupils present Neck Neck: Yes normal visual inspection and Yes no lymphadenopathy Thyroid: Thyroid normal Resp Effort & Inspection: normal respiratory effort and able to speak in complete sentences Auscultation: clear to auscultation bilaterally Cardio Rate: regular rate Rhythm: regular rhythm Heart sounds: Normal, physiologic split S2 sound present Peripheral pulses: radial pulses present and posterior tibial pulses present GI Inspection: No distended, Yes Abdominal panniculus present and Yes obesity Palpation (GI): Soft to palpation, nontender, no guarding, not rigid and No hepatosplenomegaly present Percussion: Yes normal to percussion Auscultation: normal bowel sounds Rectal Exam - Female: deferred Skin General skin exam: no rashes or lesions noted, turgor normal, skin not dry, no jaundice, No spider nevi and no striae Rashes: no rashes Nails: normal Neuro General: oriented to person, oriented to place and oriented to time Cranial nerves: Yes Equal, round and reactive pupils present and Yes Normal hearing present Speech: No Abnormal speech present Extrem General: Yes normal to inspection, No clubbing, No cyanosis and No edema Psych Appearance: grossly normal and well kempt Mental Status: mental status grossly normal Speech and movement: Normal speech and movement present Affect: normal affect Attitude: cooperative Thought process: Normal thought process present and not confabulating Thought content: Normal thought content present Insight: Good insight present (Psych) Judgement: Good judgement present (Psych) Assessment & Plan Assessment & Plan (1) Acute diarrhea: Code(s): R19.7 - Diarrhea, unspecified Category: Medical (2) GERD (gastroesophageal reflux disease): Code(s): K21.9 - Gastro-esophageal reflux disease without esophagitis Category: Medical Qualifiers: Esophagitis presence: esophagitis presence not specified Qualified Code(s): K21.9 - Gastro-esophageal reflux disease without esophagitis (3) Abdominal bloating: Code(s): R14.0 - Abdominal distension (gaseous) Category: Medical (4) Constipation: Code(s): K59.00 - Constipation, unspecified Category: Medical Qualifiers: Constipation type: chronic idiopathic constipation Qualified Code(s): K59.04 - Chronic idiopathic constipation Plan She had a sudden onset of loose stools and fecal incontinence for a week a couple of weeks ago. She usually has CIC. At some point she was switched from senna to bisacodyl which she uses sparingly. She denies any N/V or fevers but she did feel low energy and lazy during this time. No big diet changes, lactose intolerant but uses almond milk. Now stools are mushy but she has to strain to pass them. She has a lot of gs as well. Likely viral insult. Start metamucil and a probiotic. She continues on her omeprazole 20 mg twice a day. ROV 4 weeks. Coding Level of Care Code Est Pt Level 3 (05439) Diagnoses Acute diarrhea R19.7 Gastroesophageal reflux disease, unspecified whether esophagitis present K21.9 Esophagitis presence: esophagitis presence not specified Abdominal bloating R14.0 Chronic idiopathic constipation K59.04 Constipation type: chronic idiopathic constipation
[2025-01-02 10:55] VITALS: BP 138/86; PULSE 68; O2SAT 96; BMI 38.4
== END 2025-01-02 11:22 | disposition home or self-care (01) ==
LOC: HO.HGI 10:45
PROVIDERS: PCP Internal Medicine; Visit Provider Nurse Practitioner
DX: R19.7 Diarrhea, unspecified (principal); K21.9 Gastro-esophageal reflux disease without esophagitis; R14.0 Abdominal distension (gaseous); K59.04 Chronic idiopathic constipation
CPT/HCPCS: 99213

== ENCOUNTER → 2025-01-02 10:44 | Outpatient (BNVA) | payer MEDICARE, SELFPAY | PROVIDERS: PCP Internal Medicine; Visit Provider Nurse Practitioner | DX: D12.6 Benign neoplasm of colon, unspecified (principal); K21.9 Gastro-esophageal reflux disease without esophagitis; K59.01 Slow transit constipation; R19.7 Diarrhea, unspecified; R14.0 Abdominal distension (gaseous); K59.04 Chronic idiopathic constipation; Z80.0 Family history of malignant neoplasm of digestive organs | CPT/HCPCS: 99212 ==

== ENCOUNTER 2025-04-20 09:26 | Outpatient (AMB) | payer MEDICARE, SELFPAY ==
--- NOTE | 2025-04-20 09:58 | MHC.OFFVIS ---
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/Paul/Abn ecg It Architecture Analyst Required: No Accompanied by: Self / Same As Patient Allergies No Known Drug Allergies Adverse Reaction (Unknown, Verified 01/02/25 10:58) Unknown seasonal Allergy (Intermediate, Uncoded 01/02/25 10:58) Itchy Eyes Medication List - Last Reconciled 04/20/25 by Ismael Leija MD aspirin 81 mg PO DAILY atorvastatin 10 mg PO DAILY bisacodyl 10 mg (2 x 5 mg) PO DAILY blood pressure test kit-large As directed calcium carbonate 600 mg PO BID 90 days cholecalciferol (vitamin D3) 50 mcg PO DAILY 90 days fluticasone propionate 50 mcg/actuation 1 spray intranasal DAILY 30 days gabapentin 600 mg PO .every 6 hours 90 days lactobacillus combo no.13 (Probiotic Pearls Complete) 1 cap PO DAILY lactulose 10 grams (15 mL) PO BEDTIME PRN 30 days loratadine (Allergy Relief (loratadine)) 10 mg PO DAILY PRN 90 days losartan 50 mg PO DAILY 90 days omeprazole 20 mg PO BID psyllium husk (Metamucil) 1 tbsp PO BID HPI Comments Details: [age] year female who is here for abnormal ECG. She was seen in 2020 when she had abnormal stress test and underwent cardiac catheterization showing no coronary disease. She has not followed up with us since then. More recently she had a EKG performed in her primary care physician's office which showed right bundle-branch block, normal axis, premature atrial complexes, question lateral infarct and QTC was 471 milliseconds. The patient has no symptoms to report. She is saying she has been stable and has no chest discomfort, palpitations, dizziness or lightheadedness. Never had syncope before. She gets dyspnea with activity which she thinks is related to her weight and overall mobility as she walks with a cane due to arthritis. [facility] Medical History History of smoking Chest pain Cough CHRISTINE (dyspnea on exertion) Shingles Hoarse voice quality Constipation by delayed colonic transit CHRISTINE (dyspnea on exertion) Gabriela albicans infection Candidal intertrigo Encounter for Medicare annual wellness exam Mild major depression Morbid obesity with BMI of 40.0-44.9, adult GERD (gastroesophageal reflux disease) Right bundle branch block HTN (hypertension) Post herpetic neuralgia B12 deficiency Obesity Hypovitaminosis D Voice hoarseness Pure hypercholesterolemia Small intestinal bacterial overgrowth History of Clostridioides difficile colitis Surgical History Status post cardiac catheterization Hx of cardiac cath Hx of cataract surgery Hx of tubal ligation Hx of tonsillectomy Hx of colonoscopy Family History Father Lung cancer Mother Cardiovascular disease Sister Lymph node cancer Brother Colon cancer Brother Pacemaker Maternal Aunt Breast cancer Social History Household Members: None Housing: Apartment Alcohol intake: current Alcohol intake frequency: holidays/special occasions only Alcohol type: other Patient Tobacco Use Status: Former Tobacco user Tobacco use type: Cigarette e-Cigarette/Vaping Use: Never Used Second Hand Smoke Exposure: No service: No Current occupational status: retired Cognitive needs: No Hearing needs: No Vision needs: Yes Review of Systems Const Denies chills, Denies fatigue, Denies fever(s), Denies frequent falls, Denies weakness, Denies weight gain and Denies weight loss ENT Denies dizziness Card Denies chest pain, Denies leg edema, Denies lightheadedness, Denies palpitations, Denies dyspnea, Denies dyspnea on exertion and Denies orthopnea Resp Denies cough, Denies dyspnea and Denies dyspnea on exertion GI Denies bloating and Denies change in bowel habits Musc Denies muscle weakness, Denies numbness and Denies tingling Neuro Denies dizziness, Denies frequent falls, Denies numbness, Denies tingling and Denies weakness Endo Denies fatigue and Denies palpitations Physical Exam Vital Signs: Last Vital Signs Pulse 55 04/20/25 10:01 BP 110/70 04/20/25 10:01 BMI result Body Mass Index 38.5 GENERAL APPEARANCE: in no acute distress, pleasant. NECK: no carotid bruit, no jugular venous distention. SKIN: no suspicious lesions, warm and dry. HEART: no murmurs, regular rate and rhythm. LUNGS: clear to auscultation bilaterally. ABDOMEN: soft, nontender. EXTREMITIES: no edema. PERIPHERAL PULSES: equal. NEUROLOGIC: No gross deficits, AAO X 3 Assessment & Plan Assessment & Plan (1) Abnormal EKG: Code(s): R94.31 - Abnormal electrocardiogram [ECG] [EKG] Category: Medical (2) RBBB: Code(s): I45.10 - Unspecified right bundle-branch block Category: Medical Plan Pleasant 85 year female with chronic right bundle-branch block and recent ECG showing premature atrial complexes. She has background of hypertension and has been taking losartan with good blood pressure control. Premature atrial complexes are usually benign. I have discussed with her and we will arrange a 7 day monitor to rule out any episodes of atrial fibrillation as we see sometimes AFib episodes in patients who have frequent premature atrial complexes. She will see us back in 3-4 months. Thank you for allowing me to participate in the care of your patient. Please feel free to contact me if you have any questions. Orders: Orders ECG 7 day holter monitor Today R94.31 - Abnormal electrocardiogram [ECG] [EKG] Coding Level of Care Code New Pt Level 3 (23143) Diagnoses Abnormal EKG R94.31 RBBB I45.10
--- OUTSIDE RECORDS SUMMARY | 2025-04-20 09:59 | XMS_ITS | Patient Health Record ---
Author Organization [facility] Address [address] [place] [id number] Care Team Providers Care Microcomputer Technician Name Role Phone Malorie(inactive) Heriberto MARTINEZ Primary Care Provider U Jose Deshpande Unavailable [phone] Reason For Referral No Information Medications Medication SIG (Take, Route, Frequency, Duration) Notes Start Date End Date Status Colyte with Flavor Packs 240 GM As directed Orally One time only for 1 dose 12/29/2011 Active Ranitidine HCl 150 MG 1 tablet Orally On ce a day for 30 day(s) 12/29/2011 09/03/2024 Active Fexofenadine-Pseudoephedr ine 60mg prn 09/03/2024 09/03/2024 Active Problems Problem Type SNOMED Code ICD Code Onset Dates Problem Status W/U Status Risk Notes Problem Esophageal reflux (162548244) Esophageal reflux (530.81) Active confirmed Problem History of polyp of colon (situation) (035959477) Personal history of colonic polyps (V12.72) Active confirmed Problem Family history of malignant neoplasm of gastrointestinal tract (243761390) Family history of malignant neoplasm of gastrointestinal tract (V16.0) Active confirmed Problem Screening for malignant neoplasm of colon (857927986) Special screening for malignant neoplasms, colon (V76.51) Active confirmed Plan Of Treatment Future Test Test Name Order Date COLONOSCOPY 12/29/2011 Insurance Providers Payer Name Payer Address Payer Phone Subscriber Number Group Number Insured Name Patient Relationship to Insured Coverage Start Date Coverage End Date MED[place]ARE OF [place] [address] [place] [id number] SHANITABING CAMEJOINE Self - patient is the insured [facility] SUPPLEMENTAL PLAN [address] [place] [address] [id number] OUMAR DIEHL Self - patient is the insured Medical (General) History Medical History History ICD Code Denies [place],DM,CVA,Lung disease,renal dise ase GERD Surgical History Surgery Date(Month/Year) BTL Left ovary removed Cataract
[2025-04-20 10:01] VITALS: BP 110/70; PULSE 55; BMI 38.5
== END 2025-04-20 10:26 | disposition home or self-care (01) ==
LOC: HO.HCS 09:27
PROVIDERS: PCP Internal Medicine; Visit Provider Internal Medicine Cardiovascular Disease
DX: R94.31 Abnormal electrocardiogram [ECG] [EKG] (principal); I45.10 Unspecified right bundle-branch block
CPT/HCPCS: 99203

== ENCOUNTER → 2025-04-20 09:26 | Outpatient (BNVA) | payer MEDICARE, SELFPAY | PROVIDERS: PCP Internal Medicine; Visit Provider Internal Medicine Cardiovascular Disease | DX: R94.31 Abnormal electrocardiogram [ECG] [EKG] (principal); I45.10 Unspecified right bundle-branch block | CPT/HCPCS: 99202 ==

== ENCOUNTER → 2025-04-30 08:28 | Outpatient (REF) | payer MEDICARE, SELFPAY ==
--- NOTE | 2025-04-30 08:31 | HM_ITS ---
Conclusion: 1. Patient was monitored for total period of 6 days and 22 hours 2. Baseline was normal sinus rhythm with average heart of 53 beats per minute 3. No significant pauses noted with frequent sinus bradycardia noted with 80% of the time heart rate below 60 beats per minute 4. Frequent PACs noted with total burden of 1.5% without any sustained arrhythmias 5. Patient marked the counter 1 time that correlated with isolated PVC MTDD
--- OUTSIDE RECORDS SUMMARY | 2025-04-30 09:06 | XMS_ITS | Patient Health Record ---
Author Organization [facility] Address [address] [place] [id number] Care Team Providers Care Cut Off Saw Grader Name Role Phone Malorie(inactive) Heriberto MARTINEZ Primary Care Provider U Jose Deshpande Unavailable [phone] Reason For Referral No Information Medications Medication [...] W/U Status Risk Notes Problem Esophageal reflux (364349158) Esophageal reflux (530.81) Active confirmed Problem History of polyp of colon (situation) (892905907) Personal history of colonic polyps (V12.72) Active confirmed Problem Family history of malignant neoplasm of gastrointestinal tract (741071678) Family history of malignant neoplasm of gastrointestinal tract (V16.0) Active confirmed Problem Special screenin g for malignant neoplasms, colon (V76.51) Active confirmed Plan Of Treatment Future Test Test Name Order Date COLONOSCOPY 12/29/2011 Insurance Providers Payer Name Payer Address Payer Phone Subscriber Number Group Number Insured Name Patient Relationship to Insured Coverage Start Date Coverage End Date MEDICARE OF [place] [address] [place] [id number] OUMAR DIEHL Self - patient is the insured [facility] SUPPLEMENTAL PLAN [address] [place], [place] [id number] OUMAR DIEHL Self - patient is the insured Medical (General) History Medical History History ICD Code Denies [place],DM,CVA,Lung disease,renal dise ase GERD Surgical History Surgery Date(Month/Year) BTL Left ovary removed Cataract
== END ==
LOC: HO.CARD 08:28
PROVIDERS: PCP Internal Medicine; Visit Provider Internal Medicine Cardiovascular Disease
DX: R94.31 Abnormal electrocardiogram [ECG] [EKG] (principal); I49.1 Atrial premature depolarization
CPT/HCPCS: 93242

== ENCOUNTER → 2025-04-30 08:31 | Outpatient (BNV) | payer MEDICARE, SELFPAY | PROVIDERS: PCP Internal Medicine; Visit Provider Internal Medicine Cardiovascular Disease | DX: I49.1 Atrial premature depolarization (principal); I49.3 Ventricular premature depolarization | CPT/HCPCS: 93244 ==

== ENCOUNTER 2025-06-08 06:02 | Outpatient (REF) | payer MEDICARE, SELFPAY ==
--- OUTSIDE RECORDS SUMMARY | 2025-06-08 06:05 | XMS_ITS | Patient Health Record ---
Author Organization [facility] Address [address] [place] [id number] Care Team Providers Care High School Auto Repair Teacher Name Role Phone Malorie(inactive) Heriberto MARTINEZ Primary Care Provider U Jose Deshpande Unavailable [phone] Reason For Referral No Information Medications Medication [...] W/U Status Risk Notes Problem Esophageal reflux (007971470) Esophageal reflux (530.81) Active confirmed Problem History of polyp of colon (situation) (810467856) Personal history of colonic polyps (V12.72) Active confirmed Problem Family history of malignant neoplasm of gastrointestinal tract (472346482) Family history of malignant neoplasm of gastrointestinal tract (V16.0) Active confirmed Problem Screening for malignant neoplasm of colon (769178576) Special screening for malignant neoplasms, colon (V76.51) Active confirmed Plan Of Treatment Future Test Test Name Order Date COLONOSCOPY 12/29/2011 Insurance Providers Payer Name Payer Address Payer Phone Subscriber Number Group Number Insured Name Patient Relationship to Insured Coverage Start Date Coverage End Date [place]ARE OF [place] [address] [place] [id number] OUMAR DIEHL Self - patient is the insured [facility] SUPPLEMENTAL PLAN [address] [place] [address] [id number] OUMAR DIEHL Self - patient is the insured Medical (General) History Medical History History ICD Code Denies [place],DM,CVA,Lung disease,renal dise ase GERD Surgical History Surgery Date(Month/Year) BTL Left ovary removed Cataract
[2025-06-08 08:05] LABS: Alanine Aminotransferase 15 U/L (0-31); Albumin Level 3.8 g/dL (3.5-5.0); Alkaline Phosphatase 98 U/L (39-117); Anion Gap 11 (12-20); Aspartate Amino Transferase 30 U/L (5-31); Blood Urea Nitrogen 21 mg/dL (9-16); Calcium 8.8 mg/dL (8.4-10.2); Carbon Dioxide 28 mmol/L (22-29); Chloride 107 mmol/L (96-108); Cholesterol 154 mg/dL (<200); Estimated Glomerular Filt Rate 54; HDL Cholesterol 44 mg/dL (>40); Potassium 4.2 mmol/L (3.3-5.1); Sodium 142 mmol/L (135-145); Total Protein 7.0 g/dL (6.5-8.0); Triglycerides 118 mg/dL (<150)
== END 2025-06-08 06:03 | disposition home or self-care (01) ==
LOC: HO.LAB 06:02
PROVIDERS: PCP Internal Medicine; Visit Provider Internal Medicine
DX: E55.9 Vitamin D deficiency, unspecified (principal); E66.01 Morbid (severe) obesity due to excess calories; Z68.41 Body mass index [BMI] 40.0-44.9, adult; E78.5 Hyperlipidemia, unspecified
CPT/HCPCS: 36415; 80053; 80061; 82306

== ENCOUNTER 2025-06-18 07:59 | Outpatient (AMB) | payer MEDICARE, SELFPAY ==
--- OUTSIDE RECORDS SUMMARY | 2025-06-18 08:02 | XMS_ITS | Patient Health Record ---
Author Organization [facility] Address [address] [place] [phone] Care Team Providers Care Head Start Coordinator Name Role Phone Malorie(inactive) Heriberto MARTINEZ Primary Care Provider U Jose Deshpande Unavailable [phone] Reason For Referral No Information Medications Medication SIG (Take, Route, Frequency, Duration) Notes Start Date End Date Status Colyte with Flavor Packs 240 GM As directed Orally One time only; Duration: 1 dose 12/29/2011 Active Ranitidine HCl 150 MG 1 tablet Orally On ce a day; Duration: 30 day(s) 12/29/2011 09/03/2024 Active Fexofenadine-Pseudoephedr ine 60mg prn 09/03/2024 09/03/2024 Active Problems Problem Type SNOMED Code ICD Code Onset Dates Problem Status W/U Status Risk Notes Problem Esophageal reflux (148186842) Esophageal reflux (530.81) Active confirmed Problem History of polyp of colon (situation) (252182384) Personal history of colonic polyps (V12.72) Active confirmed Problem Family history of malignant neoplasm of gastrointestinal tract (553904944) Family history of malignant neoplasm of gastrointestinal tract (V16.0) Active confirmed Problem Screening for malignant neoplasm of colon (127442284) Special screening for malignant neoplasms, colon (V76.51) Active confirmed Plan Of Treatment Future Test Test Name Order Date COLONOSCOPY 12/29/2011 Insurance Providers Payer Name Payer Address Payer Phone Subscriber Number Group Number Insured Name Patient Relationship to Insured Coverage Start Date Coverage End Date MEDICARE OF [place] [address] [place] [id number] SHANITA OUMAR Self - patient is the insured [facility] SUPPLEMENTAL PLAN [address] [place] [address] [phone] [id number] OUMAR DIEHL Self - patient is the insured Medical (General) History Medical History History ICD Code Denies [place],DM,CVA,Lung disease,renal dise ase GERD Surgical History Surgery Date(Month/Year) BTL Left ovary removed Cataract
--- NOTE | 2025-06-18 08:05 | A.OFFPC_ITS ---
Vital Signs 06/18/25 08:09 Height 5 ft 5 in Weight 232 lb BMI 38.6 BP 120/60 Blood Pressure Location Lt brachial Position Sitting Pulse 48 L Pulse Source Pulse Oximeter Temp 97.1 F Temp Source Temporal Artery Scan Pulse Oximetry (%) 97 Oxygen Delivery Method Room Air Intake Visit Reasons: bp Intake Note: Patient is here to follow up on BP. Policy And Planning Manager Required: No Donor Center Technician: Not Required per policy Accompanied by: Self / Same As Patient Allergies No Known Drug Allergies Adverse Reaction (Unknown, Verified 06/18/25 08:21) Unknown seasonal Allergy (Intermediate, Uncoded 06/18/25 08:21) Itchy Eyes Medication List - Last Reconciled 06/18/25 by Niyah Mercado MD aspirin 81 mg PO DAILY atorvastatin 10 mg PO DAILY bisacodyl 10 mg (2 x 5 mg) PO DAILY blood pressure test kit-large As directed calcium carbonate 600 mg PO BID 90 days cholecalciferol (vitamin D3) 50 mcg PO DAILY 90 days fluticasone propionate 50 mcg/actuation 1 spray intranasal DAILY 30 days gabapentin 600 mg PO .every 6 hours 90 days lactobacillus combo no.13 (Probiotic Pearls Complete) 1 cap PO DAILY lactulose 10 grams (15 mL) PO BEDTIME PRN 30 days loratadine (Allergy Relief (loratadine)) 10 mg PO DAILY PRN 90 days losartan 50 mg PO DAILY 90 days omeprazole 20 mg PO BID psyllium husk (Metamucil) 1 tbsp PO BID Tobacco use date assessed: 06/18/25 Fall risk assessment: No Falls in past year Last assessed Fall Risk: 06/18/25 Dental Screening Dental Screen Date: 12/16/24 HPI HPI Comments History of Present Illness Details The patient is an 85-year-old female presenting with follow-up on blood pressure and management of chronic conditions. The patient has a history of hypertension, which is currently well-controlled with losartan 50 mg daily. She reports excellent blood pressure readings. Also has pure hypercholesterolemia on statin which has been well control and reports no side effects. The patient experiences chronic pain due to post herpetic neuralgia, for which she takes gabapentin 600 mg at bedtime, although she has been cutting the dose in half due to ineffectiveness. She expresses fatigue with taking multiple medications and is considering alternatives. She has a history of constipation, previously managed with lactulose, which she no longer requires. The patient has allergic rhinitis, managed with loratadine as needed. She also has gastroesophageal reflux disease, for which she takes omeprazole once daily, though not consistently. The patient reports minimal depression, which she manages independently. She is concerned about her weight, having gained one pound since last April, and is exploring weight management options. She has class 2 obesity with a BMI of 38.6 and was advised to do portion control. She has a history of smoking cessation and consumes alcohol only on special occasions. [facility] Medical History (Updated 06/18/25 @ 08:37 by Niyah Mercado MD) History of smoking Chest pain Cough CHRISTINE (dyspnea on exertion) Shingles Hoarse voice quality Constipation by delayed colonic transit CHRISTINE (dyspnea on exertion) Gabriela albicans infection Candidal intertrigo Encounter for Medicare annual wellness exam Mild major depression Morbid obesity with BMI of 40.0-44.9, adult GERD (gastroesophageal reflux disease) Right bundle branch block HTN (hypertension) Post herpetic neuralgia B12 deficiency Obesity Hypovitaminosis D Voice hoarseness Pure hypercholesterolemia Small intestinal bacterial overgrowth History of Clostridioides difficile colitis Surgical History Status post cardiac catheterization Hx of cardiac cath Hx of cataract surgery Hx of tubal ligation Hx of tonsillectomy Hx of colonoscopy Family History Father Lung cancer Mother Cardiovascular disease Sister Lymph node cancer Brother Colon cancer Brother Pacemaker Maternal Aunt Breast cancer Social History Household Members: None Housing: Apartment Alcohol intake: current Alcohol intake frequency: holidays/special occasions o nly Alcohol type: other Patient Tobacco Use Status: Former Tobacco user Tobacco use type: Cigarette e-Cigarette/Vaping Use: Never Used Second Hand Smoke Exposure: No service: No Current occupational status: retired Cognitive needs: No Hearing needs: No Vision needs: Yes Questionnaire PHQ-9 Over the last 2 weeks, how often have you been bothered by any of the following problems? 1. Little interest or pleasure in doing things: not at all 2. Feeling down, depressed, or hopeless: several days 3. Trouble falling or staying asleep, or sleeping too much: several days 4. Feeling tired or having little energy: several days 5. Poor appetite or overeating: several days 6. Feeling bad about yourself - or that you are a failure or have let yourself or your family down: several days 7. Trouble concentrating on things, such as reading the newspaper or watching television: not at all 8. Moving or speaking so slowly that other people could have noticed. Or the opposite - being so fidgety or restless that you have been moving around a lot more than usual: not at all 9. Thoughts that you would be better off or of hurting yourself in some way: not at all Total score: 5 Depression Screening Interpretation: Positive Depression Screening Follow-up: Existing condition and Follow-up Visit Requested Depression Screening Done: Yes 00757 - PHQ-9 Billing: Yes Source: Developed by Drs. Jose Fairchild, Ruth Ochoa, Lexx Ponce and colleagues, with an educational kristie from [employer]. Thrive Questionnaire Date Thrive assessed: 12/16/24 I am a: Patient What is your living situation today?: I have a steady place to live Within the past 12 months, did the food you bought not last and you didn't have the money to get more?: Never true Within the past 12 months, did you worry whether your food would run out before you got money to buy more?: Never true Do you have trouble paying for medicines?: No Do you have trouble getting transportation to medical appointments?: No Do you have trouble paying your heating and electricity bill?: No Do you have trouble taking care of your child, family member or friend?: No Do you have trouble with day-to-day activities such as bathing, preparing meals, shopping, managing finances, etc.?: No Are you currently unemployed and looking for a job?: No Are you interested in more education?: No Please select the resources that you would like help with: None Currently or been in a relationship where the following occur: No concerns reported THRIVE Score: 0 AUDIT C Alcohol Use Questionnaire (AUDIT-C) 1. How often do you have a drink containing alcohol?: Monthly or less 2. How many drinks containing alcohol do you have on a typical day when you are drinking?: 1 or 2 3. How often do you have six or more drinks on one occasion?: Never Total Score: 1 Score Reviewed/Action Taken: No BILLY-7 AMB Questionnaire BILLY-7 Date BILLY - 7 assessed: 12/16/24 Feeling nervous, anxious, or on edge: 1 = Several days Not being able to stop or control worryin = Several days Worrying too much about different things: 1 = Several days Trouble relaxin = Not at all Being so restless that it is hard to sit still: 0 = Not at all Becoming easily annoyed or irritable: 1 = Several days Feeling afraid as if something awful might happen: 1 = Several days Total BILLY-7 score (0-4 normal; 5-9 mild; 10-14 moderate; 15-21 severe): 5 Source: Developed by Drs. Jose Fairchild, Ruth Ochoa, Lexx Ponce and colleagues, with an educational kristie from [employer]. BILLY-7 Assessment Billing BILLY-7 Assessment Tool: BILLY-7 Assessment 92583 Review of Systems Const All systems reviewed & are unremarkable except as noted in HPI and below Card Denies chest pain at rest, Denies chest pain with activity, Denies edema, Denies irregular heart rhythm, Denies claudication, Denies dyspnea, Denies dyspnea on exertion, Denies orthopnea, Denies paroxysmal nocturnal dyspnea and Denies slow heart rate Resp Denies cough, Denies dyspnea and Denies dyspnea on exertion GI Denies abdominal pain, Denies change in bowel habits, Denies excessive flatus, Denies nausea and Denies vomiting Denies urinary incontinence, Denies urinary hesitancy and Denies urinary urgency Neuro Denies lack of coordination Physical exam (Primary Care) Vital Signs: Last Vital Signs Temp 97.1 F 06/18/25 08:09 Pulse 48 L 06/18/25 08:09 BP 120/60 06/18/25 08:09 Pulse Ox 97 06/18/25 08:09 Oxygen Delivery Method Room Air 06/18/25 08:09 BMI result Body Mass Index 38.6 BMI Assessment/Plan discussion: High BMI High, discussed plan: lifestyle, weight reduction, dietary and physical activity Tobacco/Smoking Status: Tobacco use Status Tobacco use date assessed 06/18/25 06/18/25 08:16 Patient Tobacco Use Status Former Tobacco user 06/18/25 08:05 Tobacco use type Cigarette 06/18/25 08:05 e-Cigarette/Vaping Use Never Used 06/18/25 08:05 PHQ-9: PHQ-9 Score PHQ-9: Total score 5 06/18/25 08:30 Depression Screening Interpretation: Positive Depression Screening Follow-up: Existing condition and Follow-up Visit Requested Thrive Assessment: Date of Thrive Assessment Date Thrive assessed 12/16/24 06/18/25 08:05 Currently or been in a relationship where the following occur: No concerns reported Resp Effort & Inspection: normal respiratory effort Auscultation: clear to auscultation bilaterally Cardio Jugular venous distension: no JVD Rate: regular rate Rhythm: regular rhythm Heart sounds: S1 normal heart sound present and S2 normal heart sound present Extrem General: Yes full ROM Immunizations pneumoc 20-rachael conj-dip cr(PF) 0.5 mL IM syringe Performing Provider: Niyah Mercado MD Performing Location: [facility] Administered by: Johana Castro CMA on 06/18/25 08:40 Dose Route Admin Location Dispensed Lot Number Expiration Date ND Gum Machine Filler 0.5 mL IM Right Deltoid 0.5 mL [id number] 05/04/26 [employer] Total Dispensed Waste 0.5 mL 0 % VIS Given Date VIS Provided VIS Publication Date 06/18/25 Single Vaccine 25 Eligibility Eligibility Date Funding Source Not [facility] Eligible 06/18/25 Private Coding Level of Care Code Est Pt Level 4 (23732) Complex EM visit Add On G2211 Diagnoses Essential hypertension I10 Mild recurrent major depression F33.0 Gastroesophageal reflux disease, unspecified whether esophagitis present K21.9 Esophagitis presence: esophagitis presence not specified Pure hypercholesterolemia E78.00 Post herpetic neuralgia B02.29 Additional Codes PHQ-9 - 91753 - PHQ-9 Billing: Yes ([id number]) BILLY-7 Assessment Billing - BILLY-7 Assessment Tool: BILLY-7 Assessment 58798 ([id number]) Time Spent (min) 23 Assessment & Plan Assessment & Plan (1) Essential hypertension: Code(s): I10 - Essential (primary) hypertension Category: Medical (2) Mild recurrent major depression: Code(s): F33.0 - Major depressive disorder, recurrent, mild Category: Medical (3) GERD (gastroesophageal reflux disease): Code(s): K21.9 - Gastro-esophageal reflux disease without esophagitis Category: Medical Qualifiers: Esophagitis presence: esophagitis presence not specified Qualified Code(s): K21.9 - Gastro-esophageal reflux disease without esophagitis (4) Pure hypercholesterolemia: Code(s): E78.00 - Pure hypercholesterolemia, unspecified Category: Medical (5) Post herpetic neuralgia: Code(s): B02.29 - Other postherpetic nervous system involvement Category: Medical Plan Plan 1. Essential (primary) hypertension I10 The patient's hypertension is well-controlled with losartan 50 mg daily, and her blood pressure readings are excellent. 2. Other postherpetic nervous system involvement B02.29 The patient is currently taking gabapentin 600 mg at bedtime for chronic pain, but she has been cutting the dose in half due to ineffectiveness. Alternative medications were discussed, but insurance issues have previously prevented changes. 3. Gastro-esophageal reflux disease without esophagitis K21.9 The patient takes omeprazole once daily for gastroesophageal reflux disease, though not consistently. 4. Major depressive disorder, recurrent, mild F33.0 HCC 59 The patient reports minimal depression and is managing it independently. Weight management strategies were discussed, including potential medication options. 5. Obesity, class 2 E66.812 The patient is concerned about her weight, having gained one pound since last April. Weight management strategies, including dietary changes and potential medication, were discussed. 6. Pure hypercholesterolemia, unspecified E78.00 Continue statin. Orders: Orders Pneumococcal 20 Immunization Today Z23 - Encounter for immunization Medications: New bupropion HCl XL (Wellbutrin XL) 150 mg PO QAM 90 tabs 1RF 90 days F33.0 - Major depressive disorder, recurrent, mild Changed From gabapentin 600 mg PO .every 6 hours 90 days 360 tabs 1RF To gabapentin 600 mg PO DAILY 90 tabs 1RF 90 days Discontinued lactulose Discontinued Reason: Patient Completed Course 10 grams (15 mL) PO BEDTIME 30 days PRN 300 mL 0RF constipation
[2025-06-18 08:09] VITALS: BP 120/60; PULSE 48; TEMP 36.2; O2SAT 97; BMI 38.6
== END 2025-06-18 08:46 | disposition home or self-care (01) ==
LOC: HO.HMCH 07:59
PROVIDERS: PCP Internal Medicine; Visit Provider Internal Medicine
DX: I10 Essential (primary) hypertension (principal); F33.0 Major depressive disorder, recurrent, mild; K21.9 Gastro-esophageal reflux disease without esophagitis; E78.00 Pure hypercholesterolemia, unspecified; B02.29 Other postherpetic nervous system involvement; Z23 Encounter for immunization

== ENCOUNTER → 2025-06-18 07:59 | Outpatient (BNVA) | payer MEDICARE, SELFPAY | PROVIDERS: PCP Internal Medicine; Visit Provider Internal Medicine | DX: I10 Essential (primary) hypertension (principal); K59.00 Constipation, unspecified; J30.9 Allergic rhinitis, unspecified; K21.9 Gastro-esophageal reflux disease without esophagitis; F33.0 Major depressive disorder, recurrent, mild; E78.00 Pure hypercholesterolemia, unspecified; B02.29 Other postherpetic nervous system involvement; E66.812 Obesity, class 2; Z23 Encounter for immunization; Z68.38 Body mass index [BMI] 38.0-38.9, adult | CPT/HCPCS: 90471; 90677; 96127; 99212 ==

== ENCOUNTER 2025-08-03 08:13 | Outpatient (AMB) | payer MEDICARE, SELFPAY ==
[2025-08-03 08:18] VITALS: BP 140/62; PULSE 55; BMI 37.3
--- NOTE | 2025-08-03 08:18 | A.OFFVIS_ITS ---
Vital Signs 08/03/25 08:18 Height 5 ft 5 in Weight 224 lb 6.889 oz BMI 37.3 BP 140/62 H Pulse 55 Pulse Source Pulse Oximeter Intake Visit Reasons: f/u Holter Brush Or Broom Cutter Required: No Allergies No Known Drug Allergies Adverse Reaction (Unknown, Verified 08/03/25 08:20) Unknown seasonal Allergy (Intermediate, Uncoded 08/03/25 08:20) Itchy Eyes Medication List - Last Reconciled 08/03/25 by SUNDEEP Marie aspirin 81 mg PO DAILY atorvastatin 10 mg PO DAILY bisacodyl 10 mg (2 x 5 mg) PO DAILY blood pressure test kit-large As directed bupropion HCl XL (Wellbutrin XL) 150 mg PO QAM 90 days calcium carbonate 600 mg PO BID 90 days cholecalciferol (vitamin D3) 50 mcg PO DAILY 90 days fluticasone propionate 50 mcg/actuation 1 spray intranasal DAILY 30 days furosemide (Lasix) 20 mg PO DAILY PRN gabapentin 600 mg PO DAILY 90 days lactobacillus combo no.13 (Probiotic Pearls Complete) 1 cap PO DAILY loratadine (Allergy Relief (loratadine)) 10 mg PO DAILY PRN 90 days losartan 50 mg PO DAILY 90 days neomycin-polymyxin B-dexameth 3.5mg/mL-10,000 unit/mL-0.1 % 1 drp ophthalmic (eye) Q4H omeprazole 20 mg PO BID psyllium husk (Metamucil) 1 tbsp PO BID HPI HPI f/u Holter: Details: Cece is an 85-year-old female with past medical history of obesity, hypertension, right bundle branch block, PACs, normal cardiac catheterization, sinus bradycardia who presents for follow-up after recent Holter monitor. Today she reports she has been doing well overall. Her primary complaint is of residual shingles pain along her right torso. She reports good activity tolerance with the exception of this discomfort. She has no chest pain at rest or with activity. No shortness of breath, PND, orthopnea or edema. On occasion she will feel an intermittent pulsation in her throat that last a second and resolves. No rapid or irregular heart rates. No lightheadedness, presyncope, syncope, falls. She goes to the [facility] and has her blood pressure checked weekly. She says it typically is in the normal range. She takes all her medications as directed. [facility] Medical History History of smoking Chest pain Cough CHRISTINE (dyspnea on exertion) Shingles Hoarse voice quality Constipation by delayed colonic transit CHRISTINE (dyspnea on exertion) Gabriela albicans infection Candidal intertrigo Encounter for Medicare annual wellness exam Mild major depression Morbid obesity with BMI of 40.0-44.9, adult GERD (gastroesophageal reflux disease) Right bundle branch block HTN (hypertension) Post herpetic neuralgia B12 deficiency Obesity Hypovitaminosis D Voice hoarseness Pure hypercholesterolemia Small intestinal bacterial overgrowth History of Clostridioides difficile colitis Surgical History Status post cardiac catheterization Hx of cardiac cath Hx of cataract surgery Hx of tubal ligation Hx of tonsillectomy Hx of colonoscopy Family History Father Lung cancer Mother Cardiovascular disease Sister Lymph node cancer Brother Colon cancer Brother Pacemaker Maternal Aunt Breast cancer Social History Household Members: None Housing: Apartment Alcohol intake: current Alcohol intake frequency: holidays/special occasions only Alcohol type: other Patient Tobacco Use Status: Former Tobacco user Tobacco use type: Cigarette e-Cigarette/Vaping Use: Never Used Second Hand Smoke Exposure: No service: No Current occupational status: retired Cognitive needs: No Hearing needs: No Vision needs: Yes Review of Systems Const All systems reviewed & are unremarkable except as noted in HPI and below ENT Denies dizziness Card Denies chest pain, Denies chest pain at rest, Denies chest pain with activity, Denies rapid heart rate, Denies pedal edema, Denies edema, Denies leg edema, Denies lightheadedness, Denies palpitations, Denies dyspnea, Denies dyspnea on exertion and Denies orthopnea Resp Denies cough, Denies dyspnea and Denies dyspnea on exertion GI Denies hematochezia and Denies change in stool character Musc Details: shingles pain right side Denies abnormal gait, Denies limited range of motion, Denies muscle cramps, Denies muscle weakness, Denies numbness, Denies radiating pain into limb, Denies stiffness and Denies tingling Neuro Denies abnormal gait, Denies dizziness, Denies numbness and Denies tingling Endo Denies palpitations Physical Exam Vital Signs: Last Vital Signs Pulse 55 08/03/25 08:18 BP 140/62 H 08/03/25 08:18 BMI result Body Mass Index 37.3 Const General: cooperative, healthy appearing, comfortable and no acute distress Orientation/consciousness: patient oriented x3 Neck Neck: Yes normal visual inspection Resp Effort & Inspection: normal respiratory effort Auscultation: clear to auscultation bilaterally, no rales, no rhonchi and no wheezes Cardio Rate: regular rate Rhythm: regular rhythm Heart sounds: S1 normal heart sound present, S2 normal heart sound present, no gallops, no murmurs and no rubs Neuro General: patient oriented x3 Extrem General: Yes normal to inspection, No no pedal edema and No calf tenderness Psych Appearance: grossly normal Mental Status: mental status grossly normal Speech and movement: Normal speech and movement present Assessment & Plan Assessment & Plan (1) Hypertension: Code(s): I10 - Essential (primary) hypertension Category: Medical Plan: Blood pressure goal less than 130/80. Mildly elevated today however she does report current discomfort right thorax, residual from shingles. Labs 06/08/2025 showed potassium 4.2, creatinine 0.97. Continue losartan. Low-salt diet reviewed. Call if systolic readings consistently greater than 140. (2) Sinus bradycardia: Code(s): R00.1 - Bradycardia, unspecified Category: Medical Plan: Asymptomatic sinus bradycardia. Holter monitor 04/30/2025 showed sinus rhythm with average heart rate 53 beats per minute, 80% of the time heart rate less than 60, PACs 1.5% of time. She is not on rate slowing agents. Continue to follow. Instructed to call if she develops any new symptoms. (3) RBBB: Code(s): I45.10 - Unspecified right bundle-branch block Category: Medical Plan: Noted on EKGs, not new (4) PAC (premature atrial contraction): Code(s): I49.1 - Atrial premature depolarization Category: Medical Plan: History of PACs. Recent Holter showing PACs 1.5% of time. Plan Time spent on chart review, documentation, interview and assessment Coding Level of Care Code Est Pt Level 4 (75215) Complex visit Add On G2211 Diagnoses Hypertension I10 Sinus bradycardia R00.1 RBBB I45.10 PAC (premature atrial contraction) I49.1 Time Spent (min) 28
--- OUTSIDE RECORDS SUMMARY | 2025-08-03 08:25 | XMS_ITS | Patient Health Record ---
Author Organization [facility] Address [address] [place] [address] Care Team Providers Care Purchase Price Analyst Name Role Phone Malorie(inactive) Heriberto MARTINEZ Primary Care Provider U Jose Deshpande Unavailable [phone] Reason For Referral No Information Medications Medication SIG (Take, Route, Frequency, Duration) Notes Start Date End Date Status Colyte with Flavor Packs 240 GM Solution Reconstituted As directed Orally One time only; Duration: 1 dose 12/29/2011 Active Ranitidine HCl 150 MG Tablet 1 tablet Orally Once a day; Duration: 30 day(s) 12/29/2011 Active Fexofenadine-Pseudoephedrin e 60mg prn Active Social History Social History Additional Details Category Social Info Options Details Miscellaneous: Marital status: Section Notes: Nonsmoker x 12 years; occ. a lcohol Problems Problem Type SNOMED Code ICD Code Onset Dates Problem Status W/U Status Risk Notes Problem Esophageal reflux (597260557) Esophageal reflux (530.81) Active confirmed Problem History of polyp of colon (situation) (702754064) Personal history of colonic polyps (V12.72) Active confirmed Problem Family history of malignant neoplasm of gastrointestinal tract (003162428) Family history of malignant neoplasm of gastrointestinal tract (V16.0) Active confirmed Problem Screening for malignant neoplasm of colon (105682482) Special screening for malignant neoplasms, colon (V76.51) Active confirmed Plan Of Treatment Future Test Test Name Order Date COLONOSCOPY 12/29/2011 Insurance Providers Payer Name Payer Address Payer Phone Subscriber Number Group Number Insured Name Patient Relationship to Insured Coverage Start Date Coverage End Date [place] OF [place] [address] [place] [id number] SHANITA OUMAR Self - patient is the insured [employer] [address] [place], [place] [id number] SHANITAMORELIA CAMEJORAINE Self - patient is the insured Medical (General) History Medical History History ICD Code Denies UT,DM,CVA,Lung disease,renal dise ase GERD Surgical History Surgery Date(Month/Year) BTL Left ovary removed Cataract
== END 2025-08-03 08:41 | disposition home or self-care (01) ==
LOC: HO.HCS 08:14
PROVIDERS: PCP Internal Medicine; Visit Provider Nurse Practitioner Family
DX: I10 Essential (primary) hypertension (principal); R00.1 Bradycardia, unspecified; I45.10 Unspecified right bundle-branch block; I49.1 Atrial premature depolarization
CPT/HCPCS: 99214; G2211

== ENCOUNTER → 2025-08-03 08:13 | Outpatient (BNVA) | payer MEDICARE, SELFPAY | PROVIDERS: PCP Internal Medicine; Visit Provider Nurse Practitioner Family | DX: I10 Essential (primary) hypertension (principal); R00.1 Bradycardia, unspecified; I45.10 Unspecified right bundle-branch block; I49.1 Atrial premature depolarization; Z87.891 Personal history of nicotine dependence | CPT/HCPCS: 99212 ==